=== PATIENT | male | born 1975 | race Caucasian/White ===

== ENCOUNTER 2023-01-27 11:58 | Emergency (ER) | payer MEDICARE, SELFPAY ==
--- NOTE | 2023-01-27 11:59 | ED.ABDPAIN ---
HPI - Abdominal Pain General Stated Complaint: abd pain Time Seen by Provider: 01/27/23 11:59 Source: patient Mode of arrival: ambulatory Limitations: no limitations History of Present Illness HPI narrative: Sam is a 47-year-old male patient presenting to the clinic today with complaints of abdominal pain, muscle cramping, nausea, vomiting, and diarrhea x2 days. He reports he has vomited multiple times today and has had diarrhea stool. Able to keep anything down. No fever or chills. States he gets this stomach bug approximately every 2 years and he needs fluids. Urinated once this morning and states it was very dark and malodorous. Related Data Home Medications Medication Instructions Recorded Confirmed omeprazole 40 mg capsule,delayed mg 01/27/23 release oxycodone 10 mg tablet mg 01/27/23 quetiapine 50 mg tablet mg 01/27/23 Allergies Allergy/AdvReac Type Severity Reaction Status Date / Time metaxalone Allergy Unknown Unknown Verified 01/27/23 12:07 Review of Systems Review of Systems: Pertinent positives per HPI. Patient denies any fever, chills, rash, headache, visual changes, dizziness, cough, runny nose, sore throat, shortness of breath, chest pain, palpitations,constipation, or any urinary issues. [facility] Family History Family History Mother Hypertension Family history of diabetes mellitus in first degree relative Family history of malignant neoplasm of breast in first degree relative Other Carcinoma of colon Social History Social History Alcohol intake: never Comments At the time of my signature, I reviewed and agree with the nursing past medical, surgical, social, and family history. There is no relevant family history pertinent to the patient complaint. Exam Narrative: General: Well-developed, well nourished, in no apparent distress Head: Normocephalic, atraumatic Eyes: Pupils equally round and reactive to light bilaterally, EOM intact, sclera and conjunctive clear, no discharge, lids normal Ears: TMs intact and clear, ear canals clear, no drainage, grossly hearing normal. Nose: Nares patent, no discharge, no inflammation, no sinus tenderness. Mouth: Oropharynx without lesions or masses, good dentition, mucous membranes dry Cardio: Regular rate and rhythm, s1 and s2 normal, no murmur appreciated. Resp: Clear to auscultation bilaterally anteriorly and posteriorly, no rhonchi, rales, wheezing or rubs Abdomen: Soft, pliable, bowel sounds present in all quadrants, generalized mild tender to palpation over the abdomen, no organomegly, no CVAT tenderness. Course Course Emergency Course: Portions of this record may have been created with voice recognition software. Level of Care: Express Care Visit Vital Signs Vital signs: Vital signs reviewed Transfer Transfered to: [facility] Transportation: Other (Private car) Transfer rationale: Nausea/vomiting/diarrhea/muscle cramps, dehydration Accepting physician: [facility] Transfer comments: Transfer via private car MDM - Abdominal Pain MDM Narrative Medical decision making narrative: At the time of visit patient is resting comfortably on the exam table. Patient is having nausea, vomiting, diarrhea with muscle cramping and likely dehydration. Recommend patient be transferred to the ER for evaluation for fluids/labs. Contacted Patricia at [facility] and she accepts patient for transfer. Report given for continuity of care. Patient to [facility] via private car Differential Diagnosis Differential diagnosis: Likely abdominal pain, gastroenteritis and other (Dehydration) Discharge Plan Discharge Clinical Impression: Nausea vomiting and diarrhea, Dehydration, Cramps, muscle, general Patient Disposition: Acute Care Hospital Condition: Stable Follow-up/Referrals: UNKNOWN,DOCTOR [Primary C
[2023-01-27 12:06] VITALS: BP 141/81; PULSE 94; RESP 16; TEMP 37.1; O2SAT 98
== END 2023-01-27 12:17 | disposition short-term general hospital (02) ==
PROVIDERS: Emergency Provider Nurse Practitioner Family
DX: R11.2 Nausea with vomiting, unspecified (principal); R19.7 Diarrhea, unspecified; E86.0 Dehydration; R25.2 Cramp and spasm
CPT/HCPCS: 99212; G0463

== ENCOUNTER 2023-01-27 12:37 | Emergency (ER) | payer MEDICARE, SELFPAY ==
[2023-01-27] VITALS (15 sets, daily range): BP systolic 126–158; BP diastolic 75–96; PULSE 83–93; RESP 14–18; TEMP 36.9–37.2; O2SAT 94–99
--- NOTE | 2023-01-27 12:51 | ED.NAVMDI ---
HPI - Nausea/Vomiting/Diarrhea General Chief complaint: Nausea/Vomiting/Diarrhea Stated complaint: to get fluids Time Seen by Provider: 01/27/23 12:46 History of Present Illness HPI Narrative: Pt presents with nausea, vomiting, and diarrhea for two days. Pt has vomited numerous times and had several loose stools. Pt says he is starting to have muscle cramps and thinks he is dehydrated. Pt has some crampy abdominal pain and pain under his ribs from all of the dry heaving. Pt denies fever. Related Data Home Medications Medication Instructions Recorded Confirmed omeprazole 40 mg capsule,delayed mg 01/27/23 release oxycodone 10 mg tablet mg 01/27/23 quetiapine 50 mg tablet mg 01/27/23 Allergies Allergy/AdvReac Type Severity Reaction Status Date / Time metaxalone Allergy Unknown Unknown Verified 01/27/23 13:05 Review of Systems Review of Systems: All systems reviewed & are unremarkable except as noted in HPI and below PMFSH Family History Family History Mother Hypertension Family history of diabetes mellitus in first degree relative Family history of malignant neoplasm of breast in first degree relative Other Carcinoma of colon Social History Social History Alcohol intake: never Exam Const: General: healthy appearing Nutritional Appearance: well nourished Orientation/consciousness: patient oriented x3 HENMT: Mouth: Yes dry mucous membranes Resp: Effort & Inspection: normal respiratory effort Auscultation: clear to auscultation bilaterally Cardio: Rate: regular rate Rhythm: regular rhythm GI: GI Palp: Yes Soft to palpation and Yes Tenderness to palpation present (GI) (mild general tenderness to palpation) Auscultation: Hyperactive bowel sounds present Skin: General skin exam: normal color Wounds: no wounds Neuro: General: patient oriented x3, moves all extremities, no meningeal signs, no focal motor deficits and CN's II-XI intact bilaterally Speech: normal speech Extrem: General: normal to inspection and no clubbing, cyanosis or edema Psych: Mental Status: mental status grossly normal Affect: normal affect Attitude: cooperative Course Vital Signs Vital signs: Vital Signs Temperature 98.9 F 01/27/23 12:40 Pulse Rate 93 01/27/23 12:40 Respiratory Rate 16 01/27/23 12:40 Blood Pressure 158/86 H 01/27/23 12:40 Pulse Oximetry 98 01/27/23 12:40 Temperature 98.5 F 01/27/23 12:42 Pulse Rate 83 01/27/23 14:01 Respiratory Rate 18 01/27/23 14:01 Blood Pressure 126/75 01/27/23 14:01 Pulse Oximetry 97 01/27/23 14:01 Oxygen Delivery Room Air 01/27/23 12:42 MDM - Nausea/Vomiting/Diarrhea MDM Narrative Medical decision making narrative: pt appears mildly dehydrated from persistent vomiting and could have some electrolyte abnormalities. will order labs and give IVF and IV zofran. labs look fine pt feels better will d/c on zofran and bentyl. Differential Diagnosis Differential diagnosis: Likely food poisoning, gastroenteritis and dehydration Lab Data Attestation: I reviewed the patient's lab results. 01/27/23 12:48 01/27/23 12:48 Labs: Lab Results 01/27/23 01/27/23 01/27/23 Range/Units 12:48 12:48 12:48 WBC 14.3 H (4.5-10.0) K/mm3 RBC 5.83 (4.6-6.20) M/mm3 Hgb 17.4 (14.0-18.0) g/dL Hct 53.5 H (42.0-52.0) % MCV 91.8 (80-100) fl MCH 29.8 (26-34) pg MCHC 32.5 (32-36) g/dl RDW 14.8 H (11.5-14.5) % Plt Count 182 (150-375) k/mm3 MPV 10.6 H (7.4-10.4) fl Immature Gran % (Auto) 1.0 H (0-0.5) % Neut % (Auto) 85.8 H (45.5-73.1) % Lymph % (Auto) 6.9 L (18.3-44.2) % Potter % (Auto) 5.9 (2.6-8.5) % Eos % (Auto) 0.1 (0-4.4) % Baso % (Auto) 0.3 (0.2-1.2) % Lymph # (Auto) 0.99 (0.9-3.2) K/mm3 Potter # (Auto) 0.8 H (0
[2023-01-27 12:55] LABS: Basophils Absolute Auto 0.1 K/mm3 (0.0-0.1); Basophils Percent Auto 0.3 % (0.2-1.2); Eosinophils Percent Auto 0.1 % (0-4.4); Hematocrit 53.5 % (42.0-52.0); Hemoglobin 17.4 g/dL (14.0-18.0); Immature Granulocyte Absolute 0.15 K/mm3 (0.00-0.031); Lymphocytes Absolute Auto 0.99 K/mm3 (0.9-3.2); Lymphocytes Percent Auto 6.9 % (18.3-44.2); Mean Corpuscular HGB Conc 32.5 g/dl (32-36); Mean Corpuscular Hemoglobin 29.8 pg (26-34); Mean Corpuscular Volume 91.8 fl (80-100); Mean Platelet Volume 10.6 fl (7.4-10.4); Monocytes Absolute Auto 0.8 K/mm3 (0.1-0.6); Monocytes Percent Auto 5.9 % (2.6-8.5); Neutrophils Absolute Auto 12.3 K/mm3 (1.3-6.7); Neutrophils Percent Auto 85.8 % (45.5-73.1); Platelet Count Result 182 k/mm3 (150-375); Red Blood Count 5.83 M/mm3 (4.6-6.20); Red Cell Distribution Width 14.8 % (11.5-14.5); White Blood Count 14.3 K/mm3 (4.5-10.0)
[2023-01-27] MEDS: SODIUM CHLORIDE 0.9% IV 1,000 ML 999 ML IV CONT (12:57)
[2023-01-27] MEDS: ONDANSETRON INJ 4 MG/2 ML VIAL IV PUSH (12:57)
[2023-01-27 13:05] LABS: Alanine Aminotransferase 27 U/L (6-50); Alkaline Phosphatase 148 U/L (38-126); Anion Gap 11 mmol/L (8-16); Aspartate Amino Transferase 30 U/L (17-59); Bilirubin,Total 0.7 mg/dL (0.2-1.3); Blood Urea Nitrogen 15 mg/dL (9-20); Calcium 9.2 mg/dL (8.4-10.2); Carbon Dioxide 27 mmol/L (22-30); Chloride 103 mmol/L (98-107); Estimated CRCL calculation 70 ml/min; Estimated Glomerular Filt Rate > 60; Glucose 137 mg/dL (65-110); Lipase 38 U/L (23-300); Potassium 4.4 mmol/L (3.4-5.0); Sodium 141 mmol/L (137-145)
[2023-01-27 13:11] LABS: Amorphous Sediment Urine Present; Appearance Urine Cloudy (Clear); Bacteria Urine None Seen /hpf; Bilirubin Urine 1+ (Negative); Blood Urine 2+ (Negative); Color Urine Dark Yellow (Yellow); Glucose Urine UA Negative (Negative); Hyaline Casts Urine Present /lpf; Ketones Urine Negative (Negative); Leukocyte Esterase Ur Negative LEU/UL (Negative); Nitrate Urine Negative (Negative); Non Pathogenic Casts >20; Protein Urine 3+ mg/dL (Negative); Specific Grav Ur 1.032 (1.001-1.035); Squamous Epithelial Cell Urine Few /hpf (Few); WBC Urine 0-5 /hpf
[2023-01-27 13:12] LABS: Add Urine Microscopic? YES
== END 2023-01-27 14:21 | disposition home or self-care (01) ==
PROVIDERS: Emergency Provider Emergency Medicine
DX: K52.9 Noninfective gastroenteritis and colitis, unspecified (principal)
CPT/HCPCS: 36415; 80053; 81001; 83690; 85025; 96361; 96374; 99284; J2405; J7030

== ENCOUNTER 2023-07-26 07:00 | Outpatient (NON) | payer MEDICARE, SELFPAY | END 2023-07-26 07:01 | disposition home or self-care (01) | PROVIDERS: Visit Provider Internal Medicine Gastroenterology | DX: D12.2 Benign neoplasm of ascending colon (principal); Z80.0 Family history of malignant neoplasm of digestive organs | CPT/HCPCS: 88305 ==

== ENCOUNTER 2023-07-26 11:35 | Day surgery (SDC) | payer MEDICARE, SELFPAY ==
[2023-06-22 09:40] VITALS: BMI 28.0
[2023-06-22 11:48] VITALS: BMI 27.8
--- NOTE | 2023-07-06 11:55 | PC.NURSE ---
spoke with patient over the phone about his new procedure date/time. education given on 2 day prep instructions. He states the office has also mailed him instructions. he knows to call dr office if he has any further questions over the prep.
[2023-07-26 11:59] VITALS: BP 129/87; PULSE 61; RESP 16; TEMP 37; O2SAT 98
[2023-07-26] MEDS: LACTATED RINGERS 1,000 ML 150 ML IV CONT (12:02)
--- NOTE | 2023-07-26 12:15 | PM.HPGS ---
History of Present Illness History of Present Illness Consent: Risks, benefits, and alternatives have been discussed and questions answered. Patient agrees to proceed with procedure. Chief complaint: Hemorrhage of Anus & Rectum, Family HX Colon CA Narrative: Sam Rosenthal is a 48 year old male with intermittent blood in stool, none for over a month. Had colonoscopy 5 years ago with polyp Review of Systems Constitutional: Constitutional: Denies headache(s) and Denies weakness Eyes: Eyes: Denies blurry vision ENT: Reports Normal hearing present, Denies headache(s) and Denies neck pain Cardiovascular: Cardiovascular: Denies chest pain and Denies dyspnea Respiratory: Respiratory: Denies dyspnea Gastrointestinal: Gastrointestinal: Reports no additional gastrointestinal complaints Genitourinary: Genitourinary: Denies dysuria Musculoskeletal: Musculoskeletal: Denies neck pain Integumentary/Breasts: Skin/Breast: Denies dry skin Neurologic: Reports Normal hearing present, Denies headache(s) and Denies weakness Psychiatric: Psychiatric: Denies anxiety Endocrine: Endocrine: Denies change in body appearance Hematologic/Lymphatic: Hematologic/Lymphatic: Denies easy bleeding Allergic/Immunologic: Allergic/Immunologic: Denies urticaria [facility] Past Medical History Medical History (Updated 06/21/23 @ 12:24 by Cecy Muhammad, VETERINARY LABORATORY TECHNICIAN-C) Back injury Family hx of colon cancer GERD (gastroesophageal reflux disease) History of adenomatous polyp of colon Neck pain with history of cervical spinal surgery Rectal bleeding Skin cancer Family History Family History Mother Hypertension Family history of diabetes mellitus in first degree relative Family history of malignant neoplasm of breast in first degree relative Other Carcinoma of colon Social History Social History Smoking packs per day: 0.5 Smoking cigarettes per day: 10.0 Years smoked: 35 Smoking pack-years: 17.50 Smoking status: Current every day smoker Tobacco type: cigarettes Alcohol intake: never Substance use type: does not use Living arrangements: with family Spiritual care concerns: No Meds Home Medications and Allergies Home Medications Medication Instructions Recorded Confirmed Type omeprazole 40 mg capsule,delayed 40 mg PO DAILY 01/27/23 07/26/23 History release alprazolam 0.5 mg tablet (Xanax) 0.5 mg PO BID 06/21/23 07/26/23 History dicyclomine 10 mg capsule 10 mg PO TID PRN abdominal pain 06/21/23 07/26/23 Rx #90 caps hydrocortisone 2.5 % topical cream 1 applic RECTAL DAILY PRN 06/21/23 07/26/23 Rx with perineal applicator hemorrhoids #30 grams oxycodone 15 mg tablet 15 mg PO QID 06/22/23 07/26/23 History Allergies Allergy/AdvReac Type Severity Reaction Status Date / Time metaxalone Allergy Mild Swelling Verified 07/26/23 11:53 of Lip/Tongue/Throat Vital Signs Vital Signs - 24 hr 07/26/23 11:59 Temperature 98.6 F Pulse Rate 61 Respiratory Rate 16 Blood Pressure 129/87 Pulse Oximetry 98 Oxygen Delivery Room Air Exam Const: General: comfortable and no acute distress HENMT: Face/Nose/Sinus: Normal nares present Eyes: General: appearance normal, both eyes and all related structures Neck: Neck: no JVD Resp: Auscultation: clear to auscultation bilaterally Cardio: Rate: regular rate Rhythm: regular rhythm GI: Inspection: non-distended GI Palp: Yes Soft to palpation Skin: General skin exam: normal color Neuro: General: gait normal Speech: normal speech Extrem: General: normal to inspection Psych: Mental Status: mental status grossly normal Assessment and Plan Assessment and plan (1) Rectal bleeding: Code(s): K62.5 - Hemorrhage of anus and rectum Status: Acute Assessment and Plan: colonoscopy
[2023-07-26 12:45] VITALS: BP 105/79; PULSE 65; RESP 18; O2SAT 97
[2023-07-26 12:55] VITALS: BP 108/72; PULSE 60; RESP 16; O2SAT 98
--- NOTE | 2023-07-26 13:02 | WPDANESPN ---
Anes - Prog Note Post-Op Date/Time: 07/26/23 13:02 Cardiovascular status: normal Respiratory status: normal Airway patency: baseline Mental status: baseline Post-Op hydration status: normal Vital Signs: Last Vital Signs Temp 37.0 C 07/26/23 11:59 Pulse 60 07/26/23 12:55 Resp 16 07/26/23 12:55 BP 108/72 07/26/23 12:55 Pulse Ox 98 07/26/23 12:55 O2 Del Method Room Air 07/26/23 12:55 Pain Score (VAS): 0 I/O: Intake & Output 07/25/23 07/26/23 07/26/23 23:59 07:59 15:59 Intake Total 400 Balance 400 Patient Feedback: Patient satisfied with anesthetic care.
[2023-07-26 13:05] VITALS: BP 124/86; PULSE 60; RESP 18; O2SAT 100
== END 2023-07-26 13:17 | disposition home or self-care (01) ==
PROVIDERS: Visit Provider Internal Medicine Gastroenterology
PROC: 0DJD8ZZ Inspection of Lower Intestinal Tract, Via Natural or Artificial Opening Endoscopic (ICD-10-PCS; CPT 45378; principal; 2023-07-26 13:00)
DX: Z86.010 Personal history of colon polyps (principal); D12.2 Benign neoplasm of ascending colon; K57.30 Diverticulosis of large intestine without perforation or abscess without bleeding; K64.8 Other hemorrhoids
CPT/HCPCS: 45380

== ENCOUNTER 2024-06-09 13:28 | Emergency (ER) | payer MEDICARE, SELFPAY ==
--- NOTE | ~2024-06-09 | XR_ITS ---
XR ankle RT min 3V Ordering provider: Salud Bowman NP History: . pain and swelling x 1 day . Comparison: None. FINDINGS: BONES: No acute fracture or dislocation. Lucency is seen in the epiphysis of the tibial which may be degenerative. Early calcaneal spur. Ossification of the insertion of the tendo Achilles. JOINT SPACES: Normal. SOFT TISSUES: Normal. IMPRESSION: No acute osseous abnormality of the right ankle. Reviewed, dictated and finalized at location A.
[2024-06-09 13:45] VITALS: BP 113/67; PULSE 65; RESP 20; TEMP 36.1; O2SAT 98
--- NOTE | 2024-06-09 13:45 | ED.LOWEXIN ---
HPI - Extremity Injury (Lower) General Chief Complaint: Extremity Injury, Lower Stated Complaint: pain,pressure,swollen right ankle Time Seen by Provider: 06/09/24 13:45 Source: patient Mode of arrival: ambulatory Limitations: no limitations History of Present Illness HPI Narrative: 48-year-old male presents with complaint right ankle pain and swelling since last night. Denies injury. First noticed pain while laying in bed. started pointing and flexing foot to stretch ankle . Pain increased throughout the night and couldn't sleep. i take oxycodone daily and not helping the pain . All systems reviewed and negative except as noted above. Related Data Home Medications Medication Instructions Recorded Confirmed alprazolam 0.5 mg tablet (Xanax) 0.5 mg PO BID 06/21/23 06/09/24 oxycodone 15 mg tablet 15 mg PO QID 06/22/23 06/09/24 escitalopram oxalate 20 mg tablet 20 mg PO DAILY 06/09/24 06/09/24 lithium carbonate 300 mg tablet 300 mg PO BID 06/09/24 06/09/24 lorazepam 0.5 mg tablet 0.5 mg PO BID 06/09/24 06/09/24 Allergies Allergy/AdvReac Type Severity Reaction Status Date / Time metaxalone Allergy Mild Swelling Verified 06/09/24 13:31 of Lip/Tongue/Throat Review of Systems Review of Systems: CONSTITUTIONAL: Denies fever, chills, or sweats. EYES: Denies visual changes, redness, or discharge. ENT: Denies rhinorrhea, congestion, sore throat, or otalgia. CARDIOVASCULAR: Denies chest pain, palpitations, or edema. RESPIRATORY: Denies cough or dyspnea. GASTROINTESTINAL: Denies abdominal pain, nausea, vomiting, or diarrhea. GENITOURINARY: Denies dysuria or hematuria. SKIN: Denies rash or itching. MUSCULOSKELETAL: Denies back pain . Reports pain and swelling to right ankle. NEUROLOGIC: Denies headache, numbness, or weakness. PSYCHIATRIC: Denies anxiety or depression. All other systems reviewed are negative, except as documented in HPI. [facility] Past Medical History Medical History (Updated 06/09/24 @ 14:18 by Salud Bowman NP) Back injury Family hx of colon cancer GERD (gastroesophageal reflux disease) History of adenomatous polyp of colon Neck pain with history of cervical spinal surgery Rectal bleeding Skin cancer Family History Family History Mother Hypertension Family history of diabetes mellitus in first degree relative Family history of malignant neoplasm of breast in first degree relative Other Carcinoma of colon Social History Social History Smoking packs per day: 0.5 Smoking cigarettes per day: 10.0 Years smoked: 35 Smoking pack-years: 17.50 Smoking status: Current every day smoker Tobacco type: cigarettes Alcohol intake: never Substance use type: does not use Living arrangements: with family Spiritual care concerns: No Comments At time of signature, agree with nursing past medical, surgical, social and family history. There is no relevant family history pertinent to the presenting complaint. Exam Narrative: GENERAL: This is a well-nourished, well-developed patient, in no apparent distress. HEAD: normocephalic, atraumatic. EYES: PERRL. Sclera clear/white. Vision is grossly intact. EARS: External ears normal NOSE: External nose normal NECK: Neck supple, non-tender without lymphadenopathy, masses or thyromegaly. CARDIOVASCULAR: Regular rate and rhythm without murmurs, gallops, or rubs. RESPIRATORY: Clear to auscultation. Breath sounds equal bilaterally. No wheezes, rales, or rhonchi. SKIN: warm, Dry, intact with no suspicious lesions or rash, good texture and turgor. NEURO: awake, alert, and oriented to person, place and time. There were no obvious focal neurologic abnormalities. EXTREMITIES: circumferential swelling to R ankle, erythema and warmth to lateral aspect. tender on palpation. R DP 2+, good color Course Course Le
== END 2024-06-09 14:25 | disposition home or self-care (01) ==
PROVIDERS: Emergency Provider Nurse Practitioner Family
DX: M19.071 Primary osteoarthritis, right ankle and foot (principal); L03.115 Cellulitis of right lower limb; F17.210 Nicotine dependence, cigarettes, uncomplicated; K21.9 Gastro-esophageal reflux disease without esophagitis; Z85.828 Personal history of other malignant neoplasm of skin
CPT/HCPCS: 73610; 99213; G0463

== ENCOUNTER 2024-07-11 14:15 | Emergency (ER) | payer MEDICARE, SELFPAY ==
--- NOTE | ~2024-07-11 | US_ITS ---
RIGHT LOWER EXTREMITY VENOUS ULTRASOUND Ordering provider: Gera Coyle PA-C History: . R ankle swelling, pain, atraumatic . Comparison: The ve FINDINGS: --COMMON FEMORAL: Patent and free of thrombus. Normal compressibility, phasic flow and augmentation. --PROXIMAL SUPERFICIAL FEMORAL: Patent and free of thrombus. Normal compressibility, phasic flow and augmentation. --DISTAL SUPERFICIAL FEMORAL: Patent and free of thrombus. Normal compressibility, phasic flow and au gmentation. --POPLITEAL: Patent and free of thrombus. Normal compressibility, phasic flow and augmentation. --POSTERIOR TIBIAL: Patent and free of thrombus. Normal compressibility, phasic flow and augmentation . IMPRESSION: Negative right lower extremity venous US. No deep vein thrombosis. Reviewed, dictated and finalized at location A.
--- NOTE | ~2024-07-11 | XR_ITS ---
EXAM: XR ankle RT min 3V DATE: 07/11/2024 15:32 HISTORY: R ankle pain . COMPARISON: 06/18/2024. FINDINGS: Normal mineralization. No fracture or dislocation. Stable lytic lesion in the distal tibia without aggressive features, likely large degenerative subchondral cyst. Mild degenerative change at the tibiotalar joint. Achilles enthesopathy. No erosion or periosteal change. Soft tissues within no rmal limits. IMPRESSION: Mild right tibiotalar osteoarthritis. Achilles enthesopathy. Reviewed, dictated and finalized at location K.
[2024-07-11 14:18] VITALS: BP 159/89; PULSE 76; RESP 20; TEMP 36.6; O2SAT 99
[2024-07-11 15:09] VITALS: BP 128/84; O2SAT 93
--- NOTE | 2024-07-11 15:18 | ED.EXTPRO ---
HPI - Extremity Problem General Chief complaint: Extremity Problem,Nontraumatic Stated complaint: gout right foot Time Seen by Provider: 07/11/24 15:06 Source: patient Mode of arrival: ambulatory Limitations: no limitations History of Present Illness HPI Narrative: This is a 48-year-old male who presents to the ED for chief complaint of right ankle and heel pain ongoing for the past month. Reports that his PCP has alternated between treating for possible gout and possible cellulitis. States that he continues to have swelling knee and pain throughout the ankle joint and into the heel. Pain is worse with weight-bearing. Has completed courses of cephalexin and is taking allopurinol daily. No specific injury but does note that it felt like his ankle needed to pop one evening before going to bed and then he woke up with it very swollen. Related Data Home Medications Medication Instructions Recorded Confirmed alprazolam 0.5 mg tablet (Xanax) 0.5 mg PO BID 06/21/23 06/09/24 oxycodone 15 mg tablet 15 mg PO QID 06/22/23 06/09/24 escitalopram oxalate 20 mg tablet 20 mg PO DAILY 06/09/24 06/09/24 lithium carbonate 300 mg tablet 300 mg PO BID 06/09/24 06/09/24 lorazepam 0.5 mg tablet 0.5 mg PO BID 06/09/24 06/09/24 Allergies Allergy/AdvReac Type Severity Reaction Status Date / Time metaxalone Allergy Mild Swelling Verified 07/11/24 14:16 of Lip/Tongue/Throat Review of Systems Review of Systems: All systems as dictated in HPI [facility] Past Medical History Medical History (Updated 07/11/24 @ 16:12 by Gera Coyle PA-C) Back injury Family hx of colon cancer GERD (gastroesophageal reflux disease) History of adenomatous polyp of colon Neck pain with history of cervical spinal surgery Rectal bleeding Skin cancer Family History Family History Mother Hypertension Family history of diabetes mellitus in first degree relative Family history of malignant neoplasm of breast in first degree relative Other Carcinoma of colon Social History Social History Smoking packs per day: 0.5 Smoking cigarettes per day: 10.0 Years smoked: 35 Smoking pack-years: 17.50 Smoking status: Current every day smoker Tobacco type: cigarettes Alcohol intake: never Substance use type: does not use Living arrangements: with family Spiritual care concerns: No Exam Narrative: GENERAL: Well-appearing, well-nourished, and in no acute distress. HEAD: Normocephalic, atraumatic. EYES: PERRLA and EOMI. ENT: Nares clear, no rhinorrhea or epistaxis. Mucous membranes moist. Oropharynx without tonsillar hypertrophy exudate or other lesions. NECK: Supple. No adenopathy or masses. CHEST: No respiratory distress. Clear to auscultation. No wheezes rales or rhonchi HEART: Regular rate and rhythm. No murmur heard. Normal peripheral pulses. ABDOMEN: Soft, nontender, nondistended, normal active bowel sounds. MSK: Normal range of motion. No edema. SKIN: Warm, dry, no rash. NEURO: Alert and oriented x4. No focal deficits. PSYCH: Normal mood and affect. Course Vital Signs Vital signs: Vital Signs Temperature 97.8 F 07/11/24 14:18 Pulse Rate 76 07/11/24 14:18 Respiratory Rate 20 07/11/24 14:18 Blood Pressure 159/89 H 07/11/24 14:18 Pulse Oximetry 99 07/11/24 14:18 Oxygen Delivery Room Air 07/11/24 14:18 Temperature 97.7 F 07/11/24 16:18 Pulse Rate 64 07/11/24 16:18 Respiratory Rate 16 07/11/24 16:18 Blood Pressure 127/79 07/11/24 16:18 Pulse Oximetry 97 07/11/24 16:18 Oxygen Delivery Room Air 07/11/24 14:18 MDM - Extremity (Nontraumatic) MDM Narrative Medical decision making narrative: This is a 48-year-old male who presents to the ED with chief complaint of 1 month of increasing right ankle pain. Vitals are normal. Exam shows mild swelling a
[2024-07-11 15:31] VITALS: BP 124/87; PULSE 72; RESP 19; O2SAT 92
[2024-07-11] MEDS: KETOROLAC 30 MG/ML VIAL (*BKC) IM (15:43)
[2024-07-11 15:49] VITALS: O2SAT 96
[2024-07-11 16:18] VITALS: BP 127/79; PULSE 64; RESP 16; TEMP 36.5; O2SAT 97
== END 2024-07-11 16:19 | disposition home or self-care (01) ==
PROVIDERS: Emergency Provider Physician Assistant
DX: M19.071 Primary osteoarthritis, right ankle and foot (principal); K21.9 Gastro-esophageal reflux disease without esophagitis; F17.210 Nicotine dependence, cigarettes, uncomplicated; Z86.010 Personal history of colon polyps; Z85.828 Personal history of other malignant neoplasm of skin; Z79.899 Other long term (current) drug therapy
CPT/HCPCS: 73610; 93971; 96372; 99284; J1885

== ENCOUNTER 2024-11-22 18:43 | Observation (INO) | payer MEDICARE, SELFPAY ==
--- NOTE | ~2024-11-22 | CT_ITS ---
EXAMINATION: CT chest abdomen pelvis w con DATE: 11/22/2024 19:26 INDICATION: perirectal abscess no oral contrast IV only . TECHNIQUE: Computed tomography (CT) of the chest, abdomen, and pelvis was performed with 100 mL Omnip aque-350 intravenous contrast. Automated exposure control and iterative reconstruction technique were employed. The dose-length product was 732.35 mGy-cm. COMPARISON: 11/08/2024 FINDINGS: CHEST: Thoracic aorta: No significant dilation. No dissection. Lung parenchyma and airways: Emphysematous change. Patent airways. Thoracic inlet, axillae and chest wall: No thyroid or soft tissue mass. No axillary lymphadenopathy. Mediastinum: No mass or lymphadenopathy. Heart and pericardium: Normal heart size. No pericardial effusion. Coronary artery calcifications: Mild. Pleura: No effusion or mass. Thoracic bones: No acute osseous finding in the chest. Partially visualized, uncomplicated appearing posterior cervicothoracic fusion hardware. ABDOMEN/PELVIS: Liver: Normal. Biliary/Gallbladder: Gallbladder is normal. No bile duct dilation. Pancreas: No mass or duct dilation. Spleen: Normal. Adrenals:No mass. Kidneys: No suspicious mass, obstructing stone, or hydronephrosis. GI tract: Mild distal esophageal and gastric wall edema. No small or large bowel dilation. Normal ariadne endix. Mesentery/Peritoneum: No ascites, mass, or free air. Retroperitoneum: No mass Atherosclerotic calcifications of intra-abdominal arterial vessels. Pelvis: Pelvic organs are within normal limits Soft Tissues: Significant interval decrease in size of the perianal abscess, with only a small amount of residual gas remaining. Persistent surrounding inflammatory change. Abdominopelvic bones: No acute osseous finding in the abdomen/pelvis. IMPRESSION: Emphysematous changes. Mild esophagitis/gastritis. Improving perianal abscess. Reviewed, dictated and finalized at location [facility]. [employer]
--- OUTSIDE RECORDS SUMMARY | 2024-11-22 17:59 | XMS_ITS | Continuity of Care Document ---
Author Organization [facility] Address [address] [place] [address] [address] [place] [address] Phone Care Team Providers Care Tier Truck Driver Name Role Phone Tobi Alonso Unavailable Unavailable Advance Directives Directive Yes / No Effective Date File Name No Information Encounters Encounter Description Practice Location Reason(s) For Visit Diagnoses Date Provider Providers Copied on Encounter [facility], [id number] [place] [address] [address], [place], [place], [id number], [place] tel:[phone] [facility] No Information [address] , [address], [place], [address], [place]. tel:[phone] Family History Family Member Type Diagnosis Age At Onset No Information Payers Payer name Insurance type Covered democrat ID Authoriza tisean(s) [employer] SOI CI [id number] Social History Type Description Quantity Date Captured Comments Sex Male Smoking Status No Information Chief Complaint And Reason For Visit No Information Reason For Referral Reason For Referral No Information History Of Present Illness Encounter Date Complaint History Of Prese nt Illness No Information Functional Status Date Functional Assessmen t No Information Instructions Date Instruction Additional Infor mation No Information Assessments Type Assessment Date No Information Patient Care Teams Name Effective Dates (start - stop) Status Members No Information
--- OUTSIDE RECORDS SUMMARY | 2024-11-22 18:00 | XMS_ITS | Clinical Summary ---
Author Organization [facility] Address [address] [place] [address] Phone Care Team Providers Care Heating Systems Installer Name Role Phone David Flood Primary Care Provider [phone] Allergies No known active allergies Medications risperiDONE (RISPERDAL) 0.5 MG Tablet Take 1 mg by mouth nightly. Active HYDROcodone-mariajose taminophen (NORCO) 10-325 MG Tablet Take 1 Tab by mouth every 6 hours as needed for Pain. Active venlafaxine (EFFEXOR XR) 150 MG CAPSULE SR 24 HR Take 150 mg by mouth Every other day. Active fenofibrate (TRICOR) 145 MG Tablet Take 145 mg by mouth daily. Active omeprazole (PRILOSEC) 40 MG CAPSULE DELAYED RELEASE Take 40 mg by mouth daily. Active famotidine (PEPCID) 40 MG Tablet Take 40 mg by mouth daily. Active diazePAM (VALIUM) 5 MG Tablet Take 1 Tab by mouth daily as needed for Anxiety or Muscle spasms. 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 Hypersomnia 11/19/2015 H/O lumbar discectomy 11/01/2015 Disc disease, degenerative, lumbar or lumbosacra l 11/01/2015 Muscle spasm of back 11/01/2015 Tobacco dependence 09/30/2015 Hoarseness of voice 09/24/2015 Gastroesophageal reflux disease without esophagi tis 09/24/2015 Vocal cord nodule 09/24/2015 Family History Medical History Relation Name Comments No Known Problems Father hasn't see n in 20 years Cancer Mother Diabetes Mother Hypertension Mother Relation Name Status Comments Father Alive Mother Social History Tobacco Use Types Packs/Day Years Used Date Smoking Tobacco: Every Day Cigarettes 0.5 20 Tobacco Cessation:Ready to Q uit: Yes; Counseling Given: Yes Alcohol Use Standard Drinks/Week Comments No 0 (1 standard drink = 0.6 oz pur e alcohol) Sexually Active Control Partners Comments Yes Sex and Gender Information Value Date Recorded Sex Assigned at Not on file Legal Sex Male 8:56 PM CDT Gender Identity Not on file Sexual Orientation Not on file Last Filed Vital Signs Vital Sign Reading Time Taken Comments Blood Pressure 135/76 09/23/2016 9:36 AM TRAVEL TRA[employer]ER [employer]ER Pulse 83 09/23/2016 9:36 AM TRAVEL TRA[employer] Temperature 36.2 ??C (97.2 ??F) 09/23/2016 9:36 AM CS T Respiratory Rate 16 09/23/2016 9:36 AM TRAVEL TRA[employer]ER [employer]ER Oxygen Saturation 98% 09/23/2016 9:36 AM TRAVEL TRAILER [employer]SEM[employer]ER Inhaled Oxygen Concentration - - Weight 78.9 kg (174 lb) 02/20/2016 1:19 PM CDT Height 170.2 cm (5' 7 ) 02/20/2016 1:19 PM CDT Body Mass Index 27.25 02/20/2016 1:19 PM CDT Plan of Treatment Health Maintenance Due Date Last Done Comments Hepatitis C Virus (HCV) Screening 1974 TdaP Immunization 1974 Hepatitis B Immunization (1 of 3 - 19+ 3-dose series) 1993 Colonoscopy 2019 Colorectal Cancer Screening 2019 Influenza Immunization (#1) 2024 SARS-COV-2 Immunization ( - season) 2024 Cologuard 2024 Immunochemical Fecal Occult Blood 2024 Pneumococcal Immunization (5 0+ years) (1 of 1 - PCV) 2024 Zoster Immunization (1 of 2) 2024 Respiratory Syncytial Virus (RSV) Immunization (Adult) (1 - 1-dose 75+ series) 2049 Meningococcal Immunization (ACWY) Aged Out No longer eligible based on patient's age to complete this topic Pneumococcal Immunization Combined Aged Out No longer eligible based on patient's age to complete this topic Rotavirus Immunization Aged Out No lo nger eligible based on patient's age to complete this topic Insurance MEDICAID [employer] [place] [place] [id number] Care Teams Heating Systems Installer Relationship Specialty Start Date End Date David Flood [address] [place] [address] PCP - General Family Medicine 06/18/16
--- OUTSIDE RECORDS SUMMARY | 2024-11-22 18:00 | XMS_ITS | Clinical Summary ---
Author Organization [facility] Address [id number] [place] [phone] Care Team Providers Care Legal Nurse Consultant Name Role Phone Nehemiah Ulloa MD Primary Care Provider [phone] Allergies Active Allergy Reactions Criticality Noted Date Comments Gabapentin Other (See comments) Low 01/01/2016 severe tremors Sertraline Other (See comments) Low 01/01/2016 agitation and mood changes Medications omeprazole (PriLOSEC) 40 mg capsuleIndicat ions:Treatment of Non-Bleeding Gastric Disorder Take 1 capsule (40 mg total) by mouth every morning 2 Active Flovent HFA 220 mcg/actuation inhaler Inhale 2 puffs 2 (two) times a day 2 Active buPROPion XL (WELLBUTRIN XL) 150 mg 24 hr tabletIndicati ons:Anxiety with Depression Take 150 mg by mouth 2 (two) times a day 2 Active albuterol HFA (PROVENTIL HFA,VENTOLIN HFA,PROAIR HFA) 90 mcg/actuation inhalerIndicat ions:Acute Asthma Attack Inhale 2 puffs every 6 (six) hours as needed 2 Active allopurinoL (ZYLOPRIM) 100 mg tablet Take 1 tablet (100 mg total) by mouth daily 4 Active escitalopram (LEXAPRO) 20 mg tablet Take 1 tablet (20 mg total) by mouth daily 4 Active oxyCODONE (ROXICODONE) 15 mg immediate release tablet 4 Active naproxen (NAPROSYN) 500 mg tablet Take 1 tablet (500 mg total) by mouth 2 (two) times a day with meals 30 tablet 5 Active traZODone (DESYREL) 100 mg tablet Take 1 tablet (100 mg total) by mouth nightly 4 Active ondansetron (ZOFRAN) 4 mg tablet Take 1 tablet (4 mg total) by mouth every 8 (eight) hours as needed 4 Active lidocaine (LIDODERM) 5 % 5 Active cholecalcifero l 25 mcg (1,000 unit) tablet Take 1 tablet (1,000 Units total) by mouth daily Active acetaminophen 500 mg capsule Take 2 capsules (1,000 mg total) by mouth every 6 (six) hours 120 tablet 2 11/16/19 Discontinu ed(Therapy completed) senna-docusate (PERICOLACE) 8.6-50 mgIndications: constipation Take 2 tablets by mouth 2 (two) times a day 80 tablet 2 11/16/19 Discontinu ed(Therapy completed) gabapentin (NEURONTIN) 300 mg capsuleIndicat ions:Pain Take 1 capsule (300 mg total) by mouth 3 (three) times a day DISCUSS WITH JUAN GALLEGOS BEFORE STOPPING MEDICATION FOR WEANING INSTRUCTIONS. STOP MEDICATION IF YOU DEVELOP TREMORS. 90 capsule 2 11/16/19 Discontinu ed(Therapy completed) oxyCODONE (ROXICODONE) 10 mg tablet Take 10 mg by mouth 4 (four) times a day 3 11/16/19 Discontinu ed(Therapy completed) QUEtiapine (SEROquel) 100 mg tablet daily 3 11/16/19 Discontinu ed(Therapy completed) hydrOXYzine (ATARAX) 10 mg tablet Take 10 mg by mouth daily as needed 3 11/16/19 Discontinu ed(Therapy completed) ALPRAZolam (XANAX) 0.5 mg tablet TAKE 1 TABLET BY MOUTH TWICE DAILY IN THE MORNING AND IN THE EVENING 11/16/19 Discontinu ed(Therapy completed) lithium 150 mg capsule Take 1 capsule (150 mg total) by mouth daily 4 11/16/19 Discontinu ed(Therapy completed) Active Problems Problem Noted Date Diagnosed Date Acute pain of right shoulder 08/28/2024 Mood disorder 12/09/2022 S/P cervical spinal fusion 08/24/2022 Asthma 08/18/2022 Cervical spondylosis with myelopathy 07/10/2022 Overview (07/10/2022): Added automatically from request for surgery [id number] Instability of left shoulder joint 02/09/2022 Overview (02/09/2022): Added automatically from request for surgery [id number] Nontraumatic complete tear of left rotator cuff 02/09/2022 Overview (02/09/2022): Added automatically from request for surgery [id number] Cervical facet syndrome 06/19/2016 Cervical vertebral fusion 06/19/2016 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 JUAN (obstructive sleep apnea) 01/08/2016 PLMD (periodic limb movement disorder) 6 Hypersomnia 11/19/2015 Disc disease, degenerative, lumbar or lumbosacra l 11/01/2015 Muscle spasm of back 11/01/2015 Tobacco dependence 09/30/2015 Gastroesophageal reflux disease without esophagi tis 09/24/2015 Hoarseness of voice 09/24/2015 Vocal cord nodule 09/24/2015 Encounters Date Type Department Care Team Description 11/16/2024 9:00 AM OUTSOLE SKIVER Office Visit [facility] Medical [facility]ics and Sports Medicine [address] [place] [phone] Cristobal Lowe MD Acute pain of right shoulder (Primary Dx); Smoker; Nontraumatic complete tear of right rotator cuff 11/05/2024 9:38 PM OUTSOLE SKIVER - 11/05/2024 10:28 PM OUTSOLE SKIVER Emergency [facility] Emergency Department [address] [place] [address] Zeus Brink MD Acute pain of right shoulder (Primary Dx); Acute left ankle pain; Anal pain Discharge Disposition: Discharge to home or self care 10/31/2024 Telephone [facility] Orthopedics and Sports Medicine [address] [place] [phone] Cristobal Lowe MD sooner appointment 09/27/2024 2:05 PM OUTSOLE SKIVER - 09/27/2024 11:59 PM OUTSOLE SKIVER Hospital Encounter [facility] ([facility]) [address] [place] [phone] Acute pain of right shoulder Discharge Disposition: Discharge to home or self care 09/05/2024 1:07 PM OUTSOLE SKIVER - 09/05/2024 4:24 PM OUTSOLE SKIVER Emergency [facility] Emergency Department [address] [place] [address] Osvaldo Voss MD Suicidal ideation (Primary Dx) Discharge Disposition: Discharge to home or self care 09/05/2024 12:37 PM OUTSOLE SKIVER - 09/05/2024 11:59 PM OUTSOLE SKIVER Hospital Encounter [facility] AMBULANCE BILLING Emergency, Room R Discharge Disposition: Discharge to home or self care 08/28/2024 9:15 AM OUTSOLE SKIVER Office Visit [facility] Orthopedics and Sports Medicine [address] [place] [address] [place] [phone] Talia Lubin PA Acute pain of right shoulder (Primary Dx) 08/28/2024 9:05 AM OUTSOLE SKIVER - 08/28/2024 11:59 PM OUTSOLE SKIVER Hospital Encounter [facility] Di[facility] [address] [place] [phone] Acute pain of right shoulder Discharge Disposition: Discharge to home or self care from Last 3 Months Surgical History Surgery Date Site/Laterality Comments FLUORO GUIDED INJECTION SHOULDER LEFT 07/06/2016 Lef t SPINAL FUSION 10/25/2011 - 10/24/2012 SHOULDER SURGERY COLONOSCOPY UPPER GASTROINTESTINAL ENDOSCOPY POSTERIOR SPINAL FUSION 08/24/2022 N/A C2-T2 FL UPPER GI AIR CONTRAST W KUB 12/10/2015 Left FL UPPER GI AIR CONTRAST W KUB 11/15/2015 Left Medical History Medical History Date Comments ADHD (attention deficit hyperactivity disorder) Anxiety Arthritis Asthma Depression Gastric reflux Peripheral neuropathy Sleep apnea Family History Medical History Relation Name Comments Arthritis Mother Cancer Mother Diabetes Mother Hypertension Mother Kidney disease Mother Anesthesia problems Neg Hx Relation Name Status Comments Mother Social History Tobacco Use Types Packs/Day Years Used Date Smoking Tobacco: Every Day Cigarettes Tobacco Cessation:Ready to Q uit: Not Asked; Counseling Given: Not Answered AUDIT-C Answer Date Recorded Q1: How often do you have a drink containing alc ohol? 2-4 times a month 07/20/2022 Q2: How many drinks containi ng alcohol do you have on a typical day when you are drinking? 1 or 2 07/20/2022 Frequency of Binge Drinking Not on file 06/26 Personal Safety Answer Date Recorded Have you ever been in or are you currently in a harmful physical or emotional relationship or is someone making you feel afraid or unsafe? Denies 11/05/2024 Sex and Gender Information Value Date Recorded Sex Assigned at Not on file Legal Sex Male 10:12 AM OUTSOLE SKIVER Gender Identity Not on file Sexual Orientation Not on file Obstetrics History Last Filed Vital Signs Vital Sign Reading Time Taken Comments Blood Pressure 141/77 11/05/2024 9:37 PM OUTSOLE SKIVER Pulse 84 11/05/2024 9:37 PM OUTSOLE SKIVER Temperature 36.9 ??C (98.5 ??F) 11/05/2024 9:37 PM CS T Respiratory Rate 20 11/05/2024 9:37 PM OUTSOLE SKIVER Oxygen Saturation 100% 11/05/2024 9:37 PM OUTSOLE SKIVER Inhaled Oxygen Concentration - - Weight 76.2 kg (168 lb) 11/16/2024 9:10 AM OUTSOLE SKIVER Height 167.6 cm (5' 6 ) 11/16/2024 9:10 AM OUTSOLE SKIVER Body Mass Index 27.12 11/16/2024 9:10 AM OUTSOLE SKIVER Plan of Treatment Health Maintenance Due Date Last Done Comments Colon Cancer Screening-Colonoscopy 1974 Depression Screening 1974 Hepatitis C Screening 1974 Prostate Cancer Screening-PSA 1974 Pneumococcal vaccine <65 (1 of 2 - PCV) 1980 DTaP/Tdap/Td Vaccine (1 - Tdap) 1985 Hepatitis B Screening 1992 Regular Well Visit/Exam 18-64 1992 Influenza Vaccine (#1) 2024 Zoster Vaccine (1 of 2) 2024 Medical Devices Implanted Type Area Flask Maker Device Identifier Shelf Expiration Date Model / Serial / Lot Cervical Spine Fusion Instrumentation Spine Cervical Lt Shoulder Bicept And Cuff Reattachment Anchors Left: Shoulder DepGVISP 1 Spine Symphony 4mm Spine Occipitocervicothoracic Short Lateral Offset [id number] - [id number] Implanted:Qty: 1 on 08/24/2022 by Monico Ramon MD at [facility] N/A: Spine Cervical Depuy Synthes Spine [id number] / / Depuy Synthes Spine 3.5mm 14mm Ply Spine Screw Bone Nonsterile 4mm Kenny [id number] - [id number] Implanted:Qty: 7 on 08/24/2022 by Monico Ramon MD at [facility] N/A: Spine Cervical Depuy Synthes Spine [id number] / / Depuy Synthes Spine 4mm 240mm Straight Kenny Spinal Titanium [id number] - [id number] Implanted:Qty: 2 on 08/24/2022 by Monico Ramon MD at [facility] N/A: Spine Cervical Depuy Synthes Spine [id number] / / Depuy Synthes Spine 4.5mm 26mm Ply Spine Pedicle Screw Bone Nonsterile 4mm Kenny [id number] - [id number] Implanted:Qty: 3 on 08/24/2022 by Monico Ramon MD at [facility] N/A: Spine Cervical Depuy Synthes Spine [id number] / / Depuy Synthes Spine [id number] Set Screw - [id number] Implanted:Qty: 14 on 08/24/2022 by Monico Ramon MD at [facility] N/A: Spine Cervical Depuy Synthes Spine [id number] / / Depuy Synthes Spine 5.5mm 30mm Ply Spine Pedicle Screw Bone Nonsterile 4mm Kenny [id number] - [id number] Implanted:Qty: 4 on 08/24/2022 by Monico Ramon MD at [facility] N/A: Spine Cervical Depuy Synthes Spine [id number] / / Medtronic [employer] Bmp Infuse Sm [id number] - [id number] Implanted:Qty: 1 on 08/24/2022 by Monico Ramon MD at [facility] N/A: Spine Cervical Medtronic Inc 10/25/2024 [id number] / / [id number] Allosource 1-4mm Freeze Dried Crushed Graft 30ml Bone Cancellous [id number] - [id number] Implanted:Qty: 1 on 08/24/2022 by Monico Ramon MD at [facility] N/A: Spine Cervical Allosource 08/03/2026 [id number] / / [id number] Procedures Procedure Name Priority Date/Time Associated Diagnosis Comments MRI SHOULDER RIGHT WO CONTRAST Schedule Routine, Read Routine (OP Routine) 09/27/2024 2:50 PM OUTSOLE SKIVER Acute pain of right shoulder EGFR STAT 09/05/2024 1:28 PM OUTSOLE SKIVER DIFFERENTIAL AUTO STAT 09/05/2024 1:2 8 PM OUTSOLE SKIVER ETHANOL STAT 09/05/2024 1:28 PM OUTSOLE SKIVER THYROID FUNCTION CASCADE STAT 09/05/2024 1:28 PM OUTSOLE SKIVER COMPREHENSIVE METABOLIC PANEL STAT 09/05/2024 1:28 PM OUTSOLE SKIVER CBC WITH AUTO DIFFERENTIAL STAT 09/05/2024 1:28 PM OUTSOLE SKIVER COVID-19 CORONAVIRUS RNA Routine 09/05/2024 1:28 PM OUTSOLE SKIVER DRUGS OF ABUSE SCREEN, URINE WITHOUT CONFIRMATION STAT 09/05/2024 1:22 PM OUTSOLE SKIVER URINALYSIS AND REFLEX TO MICROSCOPIC AND CULTURE STAT 09/05/2024 1:22 PM OUTSOLE SKIVER XR SHOULDER RIGHT 2 OR MORE VIEWS Schedule Routine, Read Routine (OP Routine) 08/28/2024 9:30 AM OUTSOLE SKIVER Acute pain of right shoulder from Last 3 Months Results * MRI Shoulder Right WO Contrast (09/27/2024 2:50 PM OUTSOLE SKIVER) Anatomical Region Laterality Modality Upper Extremities Right Magnetic Reson ance 09/27/2024 3:58 PM OUTSOLE SKIVER Impressions 09/27/2024 4:06 PM OUTSOLE SKIVER 1. Right rotator cuff tendinopathy with massive, full-thickness tear of the supraspinatus, infraspinatus, and superior subscapularis tendons as well as severe myotendinous retraction and mild to moderate muscle atrophy. 2. Tear of the proximal long head right biceps tendon. Dictated by: Hussein Dickey M.D. The radiology attending physician has personally reviewed this study, and had reviewed and/or edited this written report and agrees with it. Electronically signed by: Avni Rivers M.D. Narrative 09/27/2024 4:06 PM OUTSOLE SKIVER EXAMINATION: 1. MRI right shoulder without contrast HISTORY: ??Chronic right shoulder pain, reported history of rotator cuff following an injury in 2021. FINDINGS: Comparison right shoulder radiograph 08/28/2024 and right shoulder ultrasound 06/17/2022. MR examination of the right shoulder was performed with a local coil. Transverse, oblique coronal, and oblique sagittal short TR/TE and fast spin-echo images are obtained. There is a type 1 acromion. The coracoacromial ligament is normal. There is no subacromial spur. Mild acromioclavicular joint osteoarthritis. There is moderate subacromial subdeltoid bursitis. There is moderate fatty infiltration and decreased muscle bulk of the subscapularis, supraspinatus, and infraspinatus, with sparing of the teres minor. The supraspinatus and infraspinatus tendons are completely torn. There is a full-thickness tear of the cranial portion of the subscapularis extending 1.5 cm at the footprint with associated myotendinous retraction to the level of the glenoid neck. The intra-articular biceps tendon is also ruptured. On this nonarthrographic evaluation, there is a degenerative tear of the superior labrum. There is no glenohumeral chondrosis. There is a small joint effusion tracking to the bursa. No loose bodies are identified. The bone marrow signal is normal. Irregularity of the humeral head likely represents enthesopathy. Procedure Note Avni Rivers MD - 09/27/2024 EXAMINATION: 1. MRI right shoulder without contrast HISTORY: Chronic right shoulder pain, reported history of rotator cuff following an injury in 2021. FINDINGS: Comparison right shoulder radiograph 08/28/2024 and right shoulder ultrasound 06/17/2022. MR examination of the right shoulder was performed with a local coil. Transverse, oblique coronal, and oblique sagittal short TR/TE and fast spin-echo images are obtained. There is a type 1 acromion. The coracoacromial ligament is normal. There is no subacromial spur. Mild acromioclavicular joint osteoarthritis. There is moderate subacromial subdeltoid bursitis. There is moderate fatty infiltration and decreased muscle bulk of the subscapularis, supraspinatus, and infraspinatus, with sparing of the teres minor. The supraspinatus and infraspinatus tendons are completely torn. There is a full-thickness tear of the cranial portion of the subscapularis extending 1.5 cm at the footprint with associated myotendinous retraction to the level of the glenoid neck. The intra-articular biceps tendon is also ruptured. On this nonarthrographic evaluation, there is a degenerative tear of the superior labrum. There is no glenohumeral chondrosis. There is a small joint effusion tracking to the bursa. No loose bodies are identified. The bone marrow signal is normal. Irregularity of the humeral head likely represents enthesopathy. IMPRESSION: 1. Right rotator cuff tendinopathy with massive, full-thickness tear of the supraspinatus, infraspinatus, and superior subscapularis tendons as well as severe myotendinous retraction and mild to moderate muscle atrophy. 2. Tear of the proximal long head right biceps tendon. Dictated by: Hussein Dickey M.D. The radiology attending physician has personally reviewed this study, and had reviewed and/or edited this written report and agrees with it. Electronically signed by: Avni Rivers M.D. [place] [facility] [place]ED[place] Final Result * COVID-19 Coronavirus RNA Nasopharyngeal (09/05/2024 1:28 PM OUTSOLE SKIVER) COVID-19 RNA Negative Negative Nasopharyngeal 09/05/2024 1: 28 PM OUTSOLE SKIVER 09/05/2024 1:34 PM OUTSOLE SKIVER Narrative [facility] ([place]) - 09/05/2024 2:06 PM OUTSOLE SKIVER Is the patient experiencing any symptoms consistent with COVID (eg. Fever, cough, shortness of breath)?->No What is the reason for testing?->Screening prior to [facility] health admission ??Interpretive data: Testing performed by [facility]. ??This test is performed using the [employer] Xpert Xpress CoV-2 plus assay. This is a real-time RT-PCR test intended for the qualitative detection of nucleic acid from the SARS-CoV-2. This assay has been cleared by the [place] Food and Drug administration. The performance characteristics have been verified by [facility]. ??Results must be considered in the clinical context, and a negative result does not rule out infection. Interpretive data last revised 2024. us Osvaldo Voss MD LAB MICROBIOLOGY - GENERAL O RDERABLES Final Result [facility] ([place]) 1 [facility] Department [place] [address] * eGFR (09/05/2024 1:28 PM OUTSOLE SKIVER) eGFR >90 >=60 mL/min/1. 73 m2 Comment: Interpretive Data Reference Interval Normal ?>/= 90 mL/min/1.73m2 Mildly decreased* ? 60 - 89 mL/min/1.73m2 Mildly to moderately decreased ?45 - 59 mL/min/1.73m2 Moderately to severely decreased ??30 - 44 mL/min/1.73m2 Severely decreased ?15 - 29 mL/min/1.73m2 Kidney Failure ?< 15 ??mL/min/1.73m2 *Relative to young adult level Estimated glomerular filtration rate is determined by the 2020 CKD-EPI equation recommended by the National Kidney Foundation (A Unifying Approach to GFR Estimation: Recommendations of the NKF-ASK Task Force on Reassessing the Inclusion of Race in Diagnosing Kidney Disease, JASN 2020). The CKD-EPI equation should not be used for patients with unstable renal function and has not been validated in children and those over 70. Current interpretive data was last reviewed 2021. Blood 09/05/2024 1:28 PM OUTSOLE SKIVER 09/05/2024 1:33 PM OUTSOLE SKIVER us Osvaldo Voss MD LAB BLOOD ORDERABLES Final R esult [facility] ([place]) 1 [facility] Department [place] [address] * Differential, auto (09/05/2024 1:28 PM OUTSOLE SKIVER) Neutrophil abs 6.4 1.5 - 6.5 K/cumm Imm gran abs 0.0 0.0 - 0.1 K/cumm [facility] ([place]) Lymphocyte abs 2.5 0.8 - 3.3 K/cumm [facility] ([place]) Monocyte abs 0.8 0.2 - 0.8 K/cumm [facility] ([place]) Eosinophil abs 0.1 0.0 - 0.5 K/cumm [facility] ([place]) Basophil abs 0.0 0.0 - 0.1 K/cumm [facility] ([place]) Neutrophil pct 65.0 % [facility] ([place]) Comment: Interpretive Data Percent cell count reference ranges are not reported, since discordance with absolute values may lead to misinterpretation of CBC data. Current Interpretive Data was last revised on 2018. Imm gran pct 0.4 % [facility] ([place]) Comment: Interpretive Data Percent cell count reference ranges are not reported, since discordance with absolute values may lead to misinterpretation of CBC data. Current Interpretive Data was last revised on 2018. Lymphocyte pct 24.9 % [facility] ([place]) Comment: Interpretive Data Percent cell count reference ranges are not reported, since discordance with absolute values may lead to misinterpretation of CBC data. Current Interpretive Data was last revised on 2018. Monocyte pct 8.4 % [facility] ([place]) Comment: Interpretive Data Percent cell count reference ranges are not reported, since discordance with absolute values may lead to misinterpretation of CBC data. Current Interpretive Data was last revised on 2018. Eosinophil pct 0.9 % [facility] ([place]) Comment: Interpretive Data Percent cell count reference ranges are not reported, since discordance with absolute values may lead to misinterpretation of CBC data. Current Interpretive Data was last revised on 2018. Basophil pct 0.4 % [facility] ([place]) Comment: Interpretive Data Percent cell count reference ranges are not reported, since discordance with absolute values may lead to misinterpretation of CBC data. Current Interpretive Data was last revised on 2018. Blood 09/05/2024 1:28 PM OUTSOLE SKIVER 09/05/2024 1:33 PM OUTSOLE SKIVER Osvaldo Voss MD LAB BLOOD ORDERABLES Final R esult Performing Organization Address [facility] Co de Phone Number [facility] ([place]) 1 [facility] [place] [address] * Thyroid Function [place] (09/05/2024 1:28 PM OUTSOLE SKIVER) Pathologist [facility] TSH 1.09 0.30 - 4.20 mcIUnit/mL Blood 09/05/2024 1:28 PM OUTSOLE SKIVER 09/05/2024 1:33 PM OUTSOLE SKIVER Osvaldo Voss MD LAB BLOOD ORDERABLES Final R esult Performing Organization Address [facility]/ZIP Co de Phone Number [facility] 1 [facility] [place] [address] * CBC with auto differential (09/05/2024 1:28 PM OUTSOLE SKIVER) WBC 9.9 3.8 - 9.9 K/cumm Hgb 15.3 13.0 - 17.5 g/dL [facility] ([place]) Hct 45.9 38.9 - 50.3 % [facility] ([place]) Plt 210 150 - 400 K/cumm [facility] ([place]) MPV 11.0 9.1 - 12.3 fL [facility] ([place]) RBC 5.24 4.30 - 5.80 M/cumm [facility] ([place]) MCV 87.6 81.3 - 96.4 fL [facility] ([place]) MCH 29.2 27.1 - 33.3 pg [facility] ([place]) MCHC 33.3 32.3 - 35.7 g/dL [facility] ([place]) RDW CV 13.4 11.1 - 14.9 % [facility] ([place]) RDW SD 43.4 35.7 - 48.1 fL [facility] ([place]) NRBC abs 0.00 0.00 - 0.01 K/cumm [facility] ([place]) Blood (Blood, Venous) 09/05/2024 1:28 PM OUTSOLE SKIVER 09/05/2024 1:33 PM OUTSOLE SKIVER Osvaldo Voss MD LAB BLOOD ORDERABLES Final R esult Performing Organization Address [facility]/ZIP Co de Phone Number [facility] ([place]) 1 [facility] [place] [address] * Ethanol (09/05/2024 1:28 PM OUTSOLE SKIVER) Pathologist [facility] Ethanol <10 <=10 mg/dL Comment: Interpretive Data Legal limit of intoxication > or = 80 mg/dL Levels > or = 400 mg/dL are potentially TOXIC. Current interpretive data was last revised on 2018. Blood 09/05/2024 1:28 PM OUTSOLE SKIVER 09/05/2024 1:33 PM OUTSOLE SKIVER Osvaldo Voss MD LAB BLOOD ORDERABLES Final R esult [facility] ([place]) 1 [facility] [employer] [place] [address] * (ABNORMAL) Comprehensive metabolic panel (09/05/2024 1:28 PM OUTSOLE SKIVER) Sodium 137 135 - 145 mmol/L Potassium, pl 3.4 3.3 - 4.9 mmol/L [facility] ([place]) Chloride 101 97 - 110 mmol/L [facility] ([place]) CO2 25 22 - 32 mmol/L [facility] ([place]) Anion gap 12 2 - 15 mmol/L [facility] ([place]) BUN 5(L) 6 - 25 mg/dL [facility] ([place]) Creatinine 0.70(L) 0.80 - 1.30 mg/dL [facility] ([place]) Glucose 82 70 - 199 mg/dL [facility] ([place]) Comment: Interpretive Data Fasting glucose >/= 126 mg/dl is diagnostic for diabetes. ?? Fasting is defined as no caloric intake for at least 8 hours. Fasting glucose between 100 mg/dl to 125 mg/dl is diagnostic of prediabetes. In a patient with classic symptoms of hyperglycemia or hyperglycemic crisis, a random glucose >/= 200 mg/dl is diagnostic for diabetes. In the absence of unequivocal hyperglycemia, results should be confirmed by repeat testing. The classification and Diagnosis of Diabetes Diabetes Care 2021; 46: S19-S40. Current interpretive data was last revised 2022. Calcium 9.2 8.5 - 10.3 mg/dL [facility] ([place]) Bilirubin, total 0.4 0.1 - 1.2 mg/dL [facility] ([place]) Protein, pl 7.2 6.5 - 8.5 g/dL [facility] ([place]) Albumin 4.2 3.5 - 5.0 g/dL [facility] ([place]) Alk phos 146(H) 40 - 130 Units/L [facility] ([place]) ALT 14 7 - 55 Units/L [facility] ([place]) AST 17 10 - 50 Units/L [facility] ([place]) Blood 09/05/2024 1:28 PM OUTSOLE SKIVER 09/05/2024 1:33 PM OUTSOLE SKIVER us Osvaldo Voss MD LAB BLOOD ORDERABLES Final R esult [facility] ([place] 1 [facility] Department [place] [address] * (ABNORMAL) Urinalysis reflex to microscopic and culture Urine (09/05/2024 1:22 PM OUTSOLE [facility]IVER) Color, ur Yellow Yellow Clarity, ur Clear Clear [facility] ([place]) Specific gravity, ur 1.018 1.003 - 1.030 [facility] ([place]) pH, urine 6.0 [facility] ([place]) Comment: Interpretive Data ? Urine pH is affected by diet, medications, systemic acid-base disturbances, and renal tubular function. ??pH may affect urinary stone formation. ??For example, urine pH below 6.0 may help reduce the tendency for calcium phosphate stones and pH greater than 6.0 may reduce the tendency for uric acid stone formation. Source: [facility] [employer] Current Interpretive Data was last revised on 2017 Protein, ur ql Trace Negative [facility] ([place]) Glucose, ur ql Negative Negative [facility] ([place]) Ketones, ur Negative Negative [facility] ([place]) Bilirubin, ur Negative Negative [facility] ([place]) Blood, ur Negative Negative [facility] ([place]) Urobilinogen, ur 4.0(A) <2.0 mg/dL [facility] ([place]) Nitrite, ur Negative Negative [facility] ([place]) Leukocyte esterase, ur Negative Negative [facility] ([place]) UA reflex comment Reflex conditions for microscopic UA and culture not met. [facility] ([place]) Urine 09/05/2024 1:22 PM [facility] 09/05/2024 1:24 PM [facility]SO[facility] us Osvaldo Voss MD LAB MICROBIOLOGY - GENERAL O RDERABLES Final Result [facility] ([place]) 1 [facility] Department [place] [address] * (ABNORMAL) Drugs of Abuse Screen, Urine without Confirmation (09/05/2024 1:22 PM [facility]SO[facility] SK[facility]) Amphetamine, ur Screen Positive, presumptive (A) CutOff 500ng/mL Comment: Interpretive Data - Amphetamines: ??Samples containing greater than 500 ng/mL d-methamphetamine ??or other cross-reacting amphetamine compounds are reported as positive. ??Amphetamine immunoassays are subject to significant false positive rates due to cross-reactivity of non-amphetamine drugs. Confirmatory testing required for definitive results. Current Interpretive Data was last reviewed 2023. Barbiturates, ur Not Detected CutOff 200ng/mL [facility] ([place]) Comment: Interpretive Data - Barbiturates: ??Samples containing greater than 200 ng/mL secobarbital or other cross-reacting barbiturate compounds are reported as positive. ??False positive and false negative results are possible. Confirmatory testing required for definitive results. Current Interpretive Data was last reviewed 2023. Benzodiazepines, ur Not Detected CutOff 100ng/mL [facility] ([place]) Comment: Interpretive Data - Benzodiazepines: ??Samples containing greater than 100 ng/mL nordiazepam or other cross-reacting compounds are reported as positive. False positive and false negative results are possible. Confirmatory testing required for definitive results. Current Interpretive Data was last reviewed 2023. Cannabinoids, ur Screen Positive, presumptive (A) CutOff 50 ng/mL [facility] ([place]) Comment: Interpretive Data - Cannabinoids: ??Samples containing greater than 50 ng/mL delta-9 THC -COOH or other cross-reacting compounds are reported as positive. ??False positive and false negative results are possible. ??Confirmatory testing required for definitive results. Current Interpretive Data was last reviewed 2023. Cocaine, ur Not Detected CutOff 150ng/mL [facility] ([place]) Comment: Interpretive Data - Cocaine: ??Samples containing greater than 150 ng/mL benzoylecgonine or other cross-reacting compounds are reported as positive. False positive and false negative results are possible. Confirmatory testing required for definitive results. Current Interpretive Data was last reviewed 2023. Fentanyl, Ur Not Detected CutOff 5 ng/mL [facility] ([place]) Comment: Interpretive Data - Fentanyl: ??Samples containing greater than 5 ng/mL norfentanyl, fentanyl, or other cross-reacting fentanyl compounds are reported as positive. False positive and false negative results are possible. Confirmatory testing required for definitive results. Current Interpretive Data was last reviewed 2023. Methadone, ur Not Detected CutOff 300ng/mL [facility] ([place]) Comment: Interpretive Data - Methadone: ??Samples containing greater than 300 ng/mL d,l-methadone or other cross-reacting compounds are reported as positive. ??False positive and false negative results are possible. Confirmatory testing required for definitive results. Current Interpretive Data was last reviewed 2023. Opiates, ur Not Detected CutOff 300ng/mL [facility] ([place]) Comment: Interpretive Data - Opiates: ??Samples containing greater than 300 ng/mL morphine or other cross-reacting compounds are reported as positive. ??False positive and false negative results are possible. Confirmatory testing required for definitive results. Current Interpretive Data was last reviewed 2023. Oxycodone, ur Not Detected CutOff 100ng/mL [facility] ([place]) Comment: Interpretive Data - Oxycodone: ??Samples containing greater than 100 ng/mL oxycodone or other cross-reacting compounds are reported as ??positive. ??False positive and false negative results are possible. Confirmatory testing required for definitive results. Current Interpretive Data was last reviewed 2023. Phencyclidine, ur Not Detected CutOff 25 ng/mL [facility] ([place]) Comment: Interpretive Data - Phencyclidine: ??Samples containing greater than 25 ng/mL phencyclidine or other cross-reacting compounds are reported as positive. ??False positive and false negative results are possible. Confirmatory testing required for definitive results. Current Interpretive Data was last reviewed 2023. Urine Creatinine 202 mg/dL [facility] ([place]) Comment: Interpretive Data Urine Creatinine: < 10 mg/dL is extremely dilute = or > 10 but < 20 mg/dL is dilute = or > 20 mg/dL is normal Current Interpretive Data was last revised on 2018. Urine 09/05/2024 1:22 PM [facility]SOLE [facility] 09/05/2024 1:24 PM [facility]SOLE [facility]IVER Narrative [facility] ([place]) - 09/05/2024 1:46 PM [facility]SOLE [facility] Drug of Abuse screening is performed by immunoassay for medical purposes only. ??This is not to be used for Pain Management purposes. Osvaldo Voss MD LAB URINE ORDERABLES Final R esult [facility] [place]) 1 [facility] [place] [address] * XR Shoulder Right 2 or More Views (08/28/2024 9:30 AM OUTSOLE SKIVER) Anatomical Region Laterality Modality Upper Extremities, Shoulder Right Comp uted Radiography 08/28/2024 12:3 1 PM [facility]SOLE [facility]IVER Narrative 08/28/2024 12:37 PM OUTSOLE SKIVER EXAM DESCRIPTION: XR SHOULDER RIGHT 2 OR MORE VIEWS REASON FOR STUDY: pain ?? Pain to rt shoulder post fall x1 1/2 wks ? FINDINGS: Three views submitted with comparison 05/28/2022. No acute fractures are identified. ??Alignment is normal. ??There is mild glenohumeral and acromioclavicular joint osteoarthritis. ??Cervicothoracic fusion is noted. 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 THIS IS AN ELECTRONICALLY VERIFIED FINAL REPORT 08/28/2024 12:37 PM - Electronically signed by ??Fred Tafoya M.D. D: ??08/28/2024 12:37 PM T: Report ID: [id number] Reading Location: ??[id number] Procedure Note Fred Tafoya MD - 08/28/2024 EXAM DESCRIPTION: XR SHOULDER RIGHT 2 OR MORE VIEWS REASON FOR STUDY: pain Pain to rt shoulder post fall x1 1/2 wks FINDINGS: Three views submitted with comparison 05/28/2022. No acute fractures are identified. Alignment is normal. There is mild glenohumeral and acromioclavicular joint osteoarthritis. Cervicothoracic fusion is noted. 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 THIS IS AN ELECTRONICALLY VERIFIED FINAL REPORT 08/28/2024 12:37 PM - Electronically signed by Fred Tafoya M.D. T: Report ID: [id number] Reading Location: [id number] us Talia M. Guebert PA IMG XR PROCEDURES Final R esult from Last 3 Months Insurance [employer] [facility] MEDICARE Address: [address] [id number] [facility] MED[facility] Address: [address] [address] [facility] Address: [address] [address] [place] [address] Advance Directives For more information, please contact: [phone] * Full Code (Latest Code Status on File) Date Activated Date Inactivated Comments 08/24/2022 5:39 PM 08/26/2022 3:22 PM Care Teams Legal Nurse Consultant Relationship Specialty Start Date End Date Nehemiah Ulloa MD PCP - General Internal Medicine 01/14/22
--- OUTSIDE RECORDS SUMMARY | 2024-11-22 18:00 | XMS_ITS | Data Portability ---
Author Organization [facility] Address [address] [place] [address] Care Team Providers Care Process Specialist Name Role Phone [facility] Education Supervisor [phone] Assessment Encounter Date Assessment Date Assessment LastModified by Organization Details LastModified Time 11/16/2018 11/16/2018 Patient is currently working with in our spine center will be following up with him after the results of the contrast cervical spine MRI. Patient is also reporting ongoing shoulder pain bilaterally does have symptoms consistent with impingement syndrome on the left shoulder and previous history of Bankart lesion that was surgically repaired on the left. As far as her right shoulder is concerned patient does have symptoms and physical examination that are consistent with adhesive capsulitis. Patient has responded well to bilateral shoulders to corticosteroid injections past is requesting these again. 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 There is minor tears that are degenerative in nature and he has chronic tendinosis of the rotator cuff. After the steroid injection that he had from the shoulders he is done well his shoulders are moving substantially better. Patient currently stable on medication will refill him today. eliana Not available 12/14/2018 14:32:31 01/11/2019 01/11/2019 Patient continue s to have ongoing cervical and lumbar spine related complaints. I have contacted spine surgeon directly today during the visit to find out what is going on and why his office is not following up all resend referral for follow-up to Dr. Jorge Shipley's office. [email or web address] Not available 01/11/2019 18:50:37 02/28/2019 02/28/2019 Patient presente d for medication refill. Patient tolerating medication well at current dose without adverse effects. Refilled as below. Discussed plan with patient, who expressed understanding. Follow up as noted below. [email or web address] Not available 02/28/2019 12:25:31 04/12/2019 04/12/2019 Patient has stil l not heard from the spine surgeons office and did text spine surgeon today to request his office to follow-up also discussed with patient that if he does not hear from the office and happy to refer him to another surgeon. At this time I will order a bilateral shoulder steroid injection for this gentleman for ongoing treatment for his bilateral shoulder. No medication refills at this time [email or web address] Not available 04/12/2019 17:43:58 Plan of Treatment Reminders Order Date Submit Date Provider Last Modified By Organization Details Last Modified Time Details Appointments None recorded. Lab None recorded. Referral neurologis t referral - Referring this patient for evaluation for concern for possible absence seizures and possibly clonic seizure disorder versus generalize d convulsion s. Patient also has concerns of memory loss and would like to discuss this with you. [address], [address] [facility] [address], [place], [address], 9 14:41:55 ENT referral 2018 019 [email or web address] Cornell Angel MD, [address] [facility], [address], [place], [address], 9 10:50:47 Procedures subacromia l injection (PROC) [address] (Infusion), [address], [place], [address], 9 17:56:51 injection, shoulder, fluoro guidance (PROC) [address] (Infusion), [address], [place], [address], 9 17:56:50 injection, shoulder, fluoro guidance (PROC) [address] (Infusion), [address], [place], [address], 9 13:26:00 Surgeries cervical spine surgery (SURG) 2018 019 [place] [address] Brayden Shipley MD, [address], [place] [address], [place], [address], 9 11:07:13 Imaging MRI, shoulder, w/o contrast [address] - Imaging, [address], [place], [address], 9 17:53:46 MRI, shoulder, w/o contrast [address] - Imaging, [address], [place], [address], 9 17:53:46 Medication Orders hydrocodon e 10 mg-acetami nophen 325 mg tablet [address] [facility] [address] [place], [address], 9 13:25:46 hydrocodon e 10 mg-acetami nophen 325 mg tablet [address] [facility], [address] [facility], [place], [address], 9 14:33:29 hydrocodon e 10 mg-acetami nophen 325 mg tablet [address] [facility] [address], [address] [place], [address], 9 18:52:14 Kenalog 40 mg/mL suspension for injection 2018 019 [email or web address] [address] [facility] [address], [address] [place], [address], 9 12:50:01 Augmentin 875 mg-125 mg tablet 2018 019 [email or web address] [facility] [address], [address] [place], [address], 9 17:10:22 omeprazole 40 mg capsule,de layed release 2018 019 INTERFACE [facility] [address], [address] [place], [address], 12:37:33 famotidine 40 mg tablet 2018 INTERFACE [facility] [address], [address] [place], [address], 12:37:29 Patient TargetsNo targets recorded. Patient Instructions Encounter Date Encounter Id Patient Instructions Last Modified By Organization Details Last Modified Time 02/28/2019 [id number] Take prescriptio ns as directed. Return to clinic as needed. [email or web address] Not available 02/28/2019 20:20:56 Discussed with patient the adverse side affects of famotidine and omeprazole. Patient states that he has been on both medications for years. He states that if he does not take either medication he vomits bile and mucus due to increased acid in stomach. Patient verbalizes snf affect of the medications wishes to continue treatment. [email or web address] Not available 02/28/2019 20:20:36 Reason for Referral Neurologist Referral for Jacqui tral convulsion Referring this patient for evaluation for concern for possible absence seizures and possibly clonic seizure disorder versus generalized convulsions. Patient also has concerns of memory loss and would like to discuss this with you. Referring Physician: Fred Schuster, Pain Management, Encounter Date: 12/14/2018 ENT Referral for Acute sinus itis Referring Physician: Inder Vincent, Family Medicine, Encounter Date: 02/28/2019 Results Created Date Observation Date Name Description Value Unit Range Abnormal Flag Note LastModifiedBy Organization Detail LastModifiedTime 02/29/20 19 12/12/2018 MRI, shoul kezia, w/o contr ast No observ ation record ed. [address] - Imaging [address], [place], [address], 03/01/2019 16:39:08 02/29/20 19 12/12/2018 MRI, shoul kezia, w/o contr ast No observ ation record ed. [address] - Imaging [address], [place], [address], 03/01/2019 16:39:09 Result Notes None recorded. Problems Name Problem SNOMED Code Status Onset Date Resolution Date Notes Provider Name and Address Organization Details Recorded Time Gastroesoph ageal reflux disease 576954950 Active 2017 Yue Horneiano [facility] 8 14:18:41 Chronic neck pain 3840289888170 Active 2017 Yuegabrielle Horneiano [facility] 8 14:20:28 Low back pain 206354822 Active 2017 Yue Art [facility] 8 14:20:39 Acute sciatica 046163999 Active 2017 Yuegabrielle Art [facility] 8 14:20:53 Neuropathy 793915332 Active 2017 Yue Art [facility] 8 14:21:08 Anxiety 14651532 Active 2017 Yuegabrielle Horneiano [facility] 8 14:21:26 Schizoaffec tive disorder 09551341 Active 2017 Yue Art [facility] 8 14:21:43 Insomnia 279984889 Active 2017 Yue Art [facility] 8 14:21:50 Disorder of the larynx 67859808 Active 2017 Yue Art [facility] 8 14:26:47 History of depression 154496191 Active 2017 Diya Michelle maxim [facility] 8 15:21:27 Displacemen t of cervical interverteb ral disc without myelopathy 43548561 Active 2017 Fred Schuster [facility] 8 15:42:09 Cervical disc disorder with radiculopat hy 695102222 Active 2017 Fred Schuster [facility] 8 15:42:10 Lumbar radiculopat hy 465925906 Active 2017 Fred Schuster [facility] 8 15:42:11 Spinal stenosis of lumbar region 28897143 Active 2017 Fred Schuster [facility] 8 15:42:12 Lumbar disc prolapse with radiculopat hy 999880369 Active 2017 Fred Schuster [facility] 8 15:42:37 Long-term current use of opiate analgesic drug 4358593656351 08 Active 2017 Inder Vincent [facility] 8 18:39:56 Chronic pain syndrome 085888651 Active 2017 Dima Reina [facility] 8 17:06:08 Lumbar spondylosis 892134341 Active 2017 Fred Schuster [facility] 8 15:02:59 Hand muscle weakness 495965652 Active 2017 Fred Schuster [facility] 8 14:02:06 Problem Notes None recorded. Procedures Surgical History Date Name Laterality Status Provider Name and Address Organization Details Recorded Time 2 Arthrd ant ntrbd min dsc crv completed [facility] 06/23/2018 14:10:58 0 Back Surgery completed [facility] 06/23/2018 14:09:00 3 Unlisted procedure shoulder completed [facility] 06/23/2018 14:09:46 Imaging Results Imaging Date Name Status LastModified by Organiz ation Details LastModified Time 12/12/2018 MRI, shoulder, w/o contrast completed [address] - Imaging [address], [place], [address], 03/01/2019 16:39:08 12/12/2018 MRI, shoulder, w/o contrast completed [address] - Imaging [address], [place], [address], 03/01/2019 16:39:09 Procedure Notes None recorded. Medical Equipment None Reported. Allergies No known drug allergies Medications Name Sig Start Date Stop Date Status Note LastModified by Organization Details LastModified Time Augmentin 875 mg-125 mg tablet Take 1 tablet every 12 hours by oral route for 7 days. 04/12 completed Not Available Not Available Not Available famotidine 40 mg tablet Take 1 tablet every day by oral route for 90 days. 2018 active Not Available Not Available Not Avai lable Zyrtec 10 mg tablet Take 1 tablet every day by oral route as directed. 2017 active Not Available Not Available Not Avai lable hydrocodone 10 mg-acetamin ophen 325 mg tablet Take 1 tablet every 12 hours by oral route for 30 days. 2018 active Not Available Not Available Not Avai lable omeprazole 40 mg capsule,del ayed release Take 1 capsule every day by oral route for 90 days. 2018 active Not Available Not Available Not Avai lable Kenalog 40 mg/mL suspension for injection Take 40 mg by injection route. 2018 active Not Available Not Available Not Avai lable Pepcid 20 mg tablet Take 1 tablet every day by oral route at bedtime. 08/17 completed Not Available Not Available Not Available fenofibrate 160 mg tablet Take 1 tablet every day by oral route. 08/17 completed Not Available Not Available Not Available diclofenac 1 % topical gel APPLY 2 GRAM TO THE AFFECTED AREA(S) BY TOPICAL ROUTE 4 TIMES PER DAY 08/17 completed Not Available Not Available Not Available marijuana (cannabis) buds/leaves for smoking Inhale every day by inhalatio n route as needed. active Not Available Not Available No t Available Vitals Date Recorded Body height Body mass index (BMI) Body weight Body temperature Heart rate Oxygen saturation Oxygen saturation in Arterial blood by Pulse oximetry Systolic blood pressure Diastolic blood pressure Provider Name and Address Organization Details Last Updated DateTime 9 162.56 cm 30.9 kg/m2 94088.6 3 g 97.4 [degF] 70 /min 95 % 95 % 142 mm[Hg] 92 mm[Hg] Lashay [facility] 9 12:35:15 Date Recorded Body height Body mass index (BMI) Body weight Body temperature Heart rate Oxygen saturation Oxygen saturation in Arterial blood by Pulse oximetry Systolic blood pressure Diastolic blood pressure Provider Name and Address Organization Details Last Updated DateTime 9 162.56 cm 30.9 kg/m2 48254.6 3 g 96.8 [degF] 87 /min 97 % 97 % 132 mm[Hg] 80 mm[Hg] Lashay [facility] 9 14:00:04 Date Recorded Body height Body mass index (BMI) Body weight Body temperature Heart rate Oxygen saturation Oxygen saturation in Arterial blood by Pulse oximetry Systolic blood pressure Diastolic blood pressure Provider Name and Address Organization Details Last Updated DateTime 9 162.56 cm 30.9 kg/m2 43256.6 3 g 97.8 [degF] 82 /min 98 % 98 % 128 mm[Hg] 78 mm[Hg] [facility] 9 18:10:01 Date Recorded Body height Body mass index (BMI) Body weight Body temperature Heart rate Respiratory rate Oxygen saturation Oxygen saturation in Arterial blood by Pulse oximetry Systolic blood pressure Diastolic blood pressure Provider Name and Address Organization Details Last Updated DateTime 9 167.64 cm 28.9 kg/m2 19835.0 3 g 98.7 [degF] 78 /min 18 /min 97 % 97 % 120 mm[Hg] 80 mm[Hg] Debbie Caceres [facility] 9 12:13:19 Date Recorded Body height Body mass index (BMI) Body weight Body temperature Heart rate Oxygen saturation Oxygen saturation in Arterial blood by Pulse oximetry Systolic blood pressure Diastolic blood pressure Provider Name and Address Organization Details Last Updated DateTime 9 167.64 cm 27 kg/m2 29552.9 3 g 96.3 [degF] 81 /min 98 % 98 % 134 mm[Hg] 88 mm[Hg] Lashay Patch [facility] 9 17:10:14 Social History Question Answer Notes LastModified by Organizat ion Details LastModified Time Tobacco Smoking Status Current Every Day Smoker Deloris Hamptonmichelle morejon, [facility] 06/23/2018 14:08:12 Do You Have An Advance Directive? No [email or web address] Information not available 02/28/2019 What Is Your Level Of Alcohol Consumption? None [email or web address] Information not available 07/27/2018 If You Are , What Was Your Level Of Alcohol Consumption Prior To ? None [email or web address] Information not available 02/28/2019 Is Anesthesia Consult Planned? No [email or web address] Information not available 02/28/2019 Plan No [email or web address] Information not available 02/28/2019 Is Blood Transfusion Acceptable In An Emergency? No [email or web address] Information not available 02/28/2019 What Is Your Level Of Caffeine Consumption? Occasional [email or web address] Information not available 02/28/2019 Live With Cats/exposure To Cat Litter No [email or web address] Information not available 02/28/2019 How Much Tobacco Do You Chew? None [email or web address] Information not available 02/28/2019 Are You Currently Employed? No [email or web address] Information not available 02/28/2019 What Type Of Diet Are You Following? REGULAR [email or web address] Information not available 02/28/2019 Which Illicit Or Recreational Drugs Have You Used? Marijuana [email or web address] Information not available 07/27/2018 Education 2 Year College [email or web address] Information not available 02/28/2019 What Is Your Occupation? DISABLED [email or web address] Information not available 02/28/2019 Have There Been Any Changes To Your Family Or Social Situation? No [email or web address] Information not available 02/28/2019 Frequent Air Travel No [email or web address] Information not available 02/28/2019 Are There Any Guns Present In Your Home? No [email or web address] Information not available 02/28/2019 Hard Of Hearing Or Deaf In One Or Both Ears? No [email or web address] Information not available 02/28/2019 Legally Blind In One Or Both Eyes? No [email or web address] Information not available 02/28/2019 Live Alone Or With Others? With Others SIGNIFICANT [email or web address] Information not available 02/28/2019 Marital Status Single maru Informat ion not available 02/28/2019 What Was The Date Of Your Most Recent Tobacco Screening? 02/28/2019 Information not available 05/19/2019 How Many Children Do You Have? 2 [email or web address] Information not available 02/28/2019 Performs Monthly Self-breast Exam? No [email or web address] Information not available 02/28/2019 Seat Belts Used Routinely Yes [email or web address] Information not available 02/28/2019 Are You Sexually Active? Yes [email or web address] Information not available 02/28/2019 Smoke Alarm In Home Yes [email or web address] Information not available 02/28/2019 Do You Have Smoke And Carbon Monoxide Detectors In Your Home? Yes [email or web address] Information not available 02/28/2019 Are You Passively Exposed To Smoke? Yes [email or web address] Information not available 02/28/2019 How Much Tobacco Do You Smoke? 1 PPD Information not available 06/23/2018 Smoking Pre- No [email or web address] Information not available 02/28/2019 General Stress Level Low Information not available 02/28/2019 Do You Use Sunscreen Routinely? No [email or web address] Information not available 02/28/2019 How Many Years Have You Smoked Tobacco? 25 Information not available 06/23/2018 Do You Have Symptoms Associated With Zika Virus (fever, Rash, Joint Pain, Or Conjunctivitis) ? No [email or web address] Information not available 02/28/2019 Have You Recently (within The Last 12 Weeks, Or During A Current ) Traveled To Or Lived In A Zika-affected Area? No Information not available 02/28/2019 Sex: Unknown Functional Status Question Answer Note LastModified by Organization D etails LastModified Time Are you able to care for yourself? Yes [email or web address] Information n ot available 02/28/2019 What is your exercise level? None [email or web address] Information not available 02/28/2019 Mental Status None recorded. Family History Relationship Description Onset Age of this Age Resolved Age Notes LastModified by Organization Details LastModified Time Mother Heart disease brhines Not available 2017 14:07:33 Mother Hyperlipidem ia brhines Not available 2017 14:07:46 Mother Kidney disease brhines Not available 2017 14:08:01 Medical History Condition Response GI Problems Y Muscle, Joint, or Bone Problems Y Reflux/GERD Y Past Encounters Encounter ID Performer Location Encounter Start Date Encounter Closed Date Diagnosis/Indication Diagnosis SNOMED-CT Code Diagnosis ICD10 Code Diagnosis Note [id number] [place] [id number] [place] [address] 06/28/2018 15:40:48 06/28/2018 16:10:51 Chronic neck pain 2817366998 107 M54.2 Low back pain 109399435 M54.5 Anxiety 51833995 F41.9 Schizoaffe ctive disorder 20923406 F25.9 Fatigue 76906542 R53.83 [id number] [address] [address] [place] [address] 07/12/2018 12:07:39 07/12/2018 12:30:46 Low back pain 079877184 M54.5 F/U 2 weeks for MRI rersult Neuropathy 290851588 G62 .9 Hypertriglyceridemia 302 666062 E78.2 Lumbar radiculopathy 128 195934 M54.16 [id number] Inder Vincent [address] [place] [address] 07/27/2018 13:47:31 07/27/2018 15:58:33 Displacement of cervical intervertebral disc without myelopathy 72586056 M50.20 Cervical d isc disorder with radiculopathy 035916594 M50.10 Lumbar radiculopathy 128 278480 M54.16 Spinal joshua nosis of lumbar region 86603490 M48.061 Lumbar dis c prolapse with radiculopathy 495315271 M51.16 Long-term current use of opiate analgesic drug 7197143264 30579 Z79.891 [id number] Dima [address] [place] [address] [place] [address] 08/04/2018 16:38:12 08/04/2018 17:38:20 Chronic neck pain 2712863341 107 M54.2 see's pain mgmt Lumbar dis c prolapse with radiculopathy 025768797 M51.16 Spinal joshua nosis of lumbar region 49392592 M48.061 Cervical d isc disorder with radiculopathy 766418789 M50.10 Neuropathy 348797374 G62 .9 Chronic pain syndrome 37 6928151 G89.4 Atypical chest pain 1025 45658 R07.89 Pruritic disorder 008829 002 L29.9 [id number] [facility] [address] [place] [address] 08/17/2018 13:49:45 08/17/2018 15:10:26 Displacement of cervical intervertebral disc without myelopathy 38707546 M50.20 Cervical d isc disorder with radiculopathy 830973172 M50.10 Lumbar radiculopathy 128 792717 M54.16 Spinal joshua nosis of lumbar region 25093348 M48.061 Lumbar dis c prolapse with radiculopathy 338328048 M51.16 Long-term current use of opiate analgesic drug 5924309441 64715 Z79.891 Lumbar spondylosis 65040 0009 M47.26 [id number] Fred GRAMAJO [address] [place] [address] 09/21/2018 13:39:29 09/21/2018 15:11:56 Displacement of cervical intervertebral disc without myelopathy 97333690 M50.20 Cervical d isc disorder with radiculopathy 216335832 M50.10 Lumbar radiculopathy 128 572454 M54.16 Spinal joshua nosis of lumbar region 15982187 M48.061 Lumbar dis c prolapse with radiculopathy 417815801 M51.16 Long-term current use of opiate analgesic drug 8582096771 08096 Z79.891 Lumbar spondylosis 91672 0009 M47.26 [id number] Fred MARS [address] [place] [address] 10/12/2018 12:43:00 10/12/2018 14:06:37 Displacement of cervical intervertebral disc without myelopathy 72343152 M50.20 Cervical d isc disorder with radiculopathy 235949251 M50.10 Lumbar radiculopathy 128 098406 M54.16 Spinal joshua nosis of lumbar region 01781145 M48.061 Lumbar dis c prolapse with radiculopathy 633151603 M51.16 Long-term current use of opiate analgesic drug 0827000228 61580 Z79.891 Lumbar spondylosis 13841 0009 M47.26 Hand muscle weakness 298 347857 M62.81 [id number] Fred Schuster [address] [place] [address] 11/16/2018 12:31:38 11/16/2018 13:28:42 Displacement of cervical intervertebral disc without myelopathy 55806570 M50.20 Cervical d isc disorder with radiculopathy 357757551 M50.10 Lumbar radiculopathy 128 169479 M54.16 Spinal joshua nosis of lumbar region 87106433 M48.061 Lumbar dis c prolapse with radiculopathy 118406588 M51.16 Long-term current use of opiate analgesic drug 6442813407 87335 Z79.891 Lumbar spondylosis 01970 0009 M47.26 Hand muscle weakness 298 875868 M62.81 Adhesive c apsulitis of shoulder 252838661 M75.01 Impingemen t syndrome of shoulder region 296145823 M75.42 [id number] Fred Schuster [facility] MADISYN [address] [place] [address] 12/14/2018 13:40:36 12/14/2018 14:58:04 Displacement of cervical intervertebral disc without myelopathy 00044884 M50.20 Cervical d isc disorder with radiculopathy 634038376 M50.10 Lumbar radiculopathy 128 766811 M54.16 Spinal joshua nosis of lumbar region 39307142 M48.061 Lumbar dis c prolapse with radiculopathy 814607350 M51.16 Long-term current use of opiate analgesic drug 9100619892 47496 Z79.891 Lumbar spondylosis 90015 0009 M47.26 Hand muscle weakness 298 407782 M62.81 Adhesive c apsulitis of shoulder 188012276 M75.01 Impingemen t syndrome of shoulder region 751519925 M75.42 Central convulsion 82910 005 R56.9 [id number] Fred MARS [address] [place] [address] 01/11/2019 17:52:38 01/11/2019 18:53:26 Displacement of cervical intervertebral disc without myelopathy 44063338 M50.20 Cervical d isc disorder with radiculopathy 701844155 M50.10 Lumbar radiculopathy 128 402113 M54.16 Spinal joshua nosis of lumbar region 55899171 M48.061 Lumbar dis c prolapse with radiculopathy 731654706 M51.16 Long-term current use of opiate analgesic drug 8604325376 27155 Z79.891 Lumbar spondylosis 58384 0009 M47.26 Hand muscle weakness 298 698854 M62.81 Adhesive c apsulitis of shoulder 135209027 M75.01 Impingemen t syndrome of shoulder region 815290660 M75.42 Central convulsion 99280 005 R56.9 [id number] Inder TracyKEYANNA MARS [facility] [address] [place] [address] 02/28/2019 11:59:39 02/28/2019 12:59:09 Gastroesophageal reflux disease 213539853 K21.9 Renewal of prescription 848310525 Z76.0 Acute sinusitis 73674893 J01.90 [id number] Fred MARS [facility] [place] [address] [place] [address] 04/12/2019 17:04:06 04/12/2019 18:06:38 Displacement of cervical intervertebral disc without myelopathy 95665015 M50.20 Cervical d isc disorder with radiculopathy 734646420 M50.10 Lumbar radiculopathy 128 277223 M54.16 Spinal joshua nosis of lumbar region 61633267 M48.061 Lumbar dis c prolapse with radiculopathy 775129710 M51.16 Long-term current use of opiate analgesic drug 0654175492 54888 Z79.891 Lumbar spondylosis 91628 0009 M47.26 Hand muscle weakness 298 095315 M62.81 Adhesive c apsulitis of shoulder 487664396 M75.01 Impingemen t syndrome of shoulder region 315913731 M75.42 Central convulsion 69186 005 R56.9 Health Concerns Section Related Observation LastModified by Organization Detai ls LastModified Time None Recorded Concern Status LastModified by Organization Details LastModified Time None Recorded Advance Directives Directive N: Payers Encounter Date Sequence Insurance Name Policy Number Policy [place] Covered Member ID [place] Member ID Guarantor Name 11/16/2018 1 [place] Sam Perezon [id number] Samernie McleanRosenthal 12/14/2018 1 [place] Sam Perezon [id number] Sam Mcleanguson 01/11/2019 1 [place] Samernie McleanRosenthal [id number] Sam Rosenthal 02/28/2019 1 [place] Sam Mcleanguson [id number] Sam Rosenthal 04/12/2019 1 [place] Sam Perezon [id number] Sam Perezon Notes Date Note Type Note Provider Name and Address Organization Details Recorded Time 11/16/2018 text/html Patient reports that he did have opportunity to see [facility] spine spinner he did see Dr. Jorge Shipley's nurse practitioner she did order a contrast MRI of the cervical spine at this time it is unclear whether or not he will need surgical intervention and they are pending the results for the MRI which the patient reported that he completed here at [facility] just a few days ago. Otherwise everything is stable the patient however he is reporting that his bilateral shoulders are problematic for him causing pain and dysfunction. No new injuries to the shoulders. Patient here today for: pain management #1: The patient complains of: neck/back pain/ Rt leg Mechanism of injury/chronic pain onset: Pain: 02/01 Location of symptoms: Onset:neck Quality:pressure Aggravating Factors: movement and sitting Relieving Factors: pain medication, hot baths, smoking marijuana Radiating, yes up to the head/ rt leg Severity (Mild Moderate Severe): severe Timing: Constant (75-100%) Prior history of symptoms: Diagnostic Imaging/Imaging Studies:MRI Electrodiagnostic Studies: On 2018 extremities. Patient has a report for review today. This will be scanned into his chart Treatment tried and failed: physical therapy causing more pain Medications tried and failed: tylenol, ibuprofen Side Effects of Pain Medication: none --ORT Score: 0-3 low risk 4-7 moderate risk 8 or higher high risk -07/27/2018- 1 08/17/18-14 --PEG scale: Q1: What # from 0-10 best describes your pain in the past week (0 = no pain, 10 = worst you can imagine ) = {{1 2 3 4 5 6 7 8* 9 1 0}} Q2: What # from 0-10 describes how, during the past week, pain has interfered with you enjoyment of life (0 = not at all , 10 = complete interference )= {{1 2 3 4 5 6 7 8* 9 1 0}} Q3: What # from 0-10 describes how, during the past week, pain has interfered with your general activity (0 = not at all , 10 = complete interference )= {{1 2 3 4 5 6 7 8* 9 1 0}} PEG average score: - Date: 07/27/2018-9 09/21/18-8.33 10/12/18: 7 11/16/18-8 --Pain Medications Taken Today: HYDROCODONE 11/16/18 Patient uses medical marijuana and HAS CARD NOW. LAST USED 11/15/18 pm [facility] and [facility]: [facility] 13:27[facility]34 12/14/2018 text/html Patient presente d today for medication refill. He did have an opportunity to have the cervical spine MRI with contrast for the surgeon's office for follow-up regarding possible need for surgery on his cervical spine. This time he is awaiting for review from the surgeon's office regarding his eligibility for surgery or not. Patient is also reporting that since the last encounter he has had weight he stated to be similar to a seizure-like convulsion this is not happened to him twice both with similar mechanisms where he stepped outside with cold wind blowing and his body sees seizing also he is reported that oftentimes he will have absent like seizures where he will lose his train of thought become silent to rule and when he comes to he does not remember what happened. This is been happening for approximately 1 yr. 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 and he is also noticing that he is having difficulty with memory and recalling what he would like to say or finding the words Patient here today for: pain management #1: The patient complains of: neck/back pain/ Rt leg Mechanism of injury/chronic pain onset: Pain: 04/03 Location of symptoms: Onset:neck Quality:pressure Aggravating Factors: movement and sitting Relieving Factors: pain medication, hot baths, smoking marijuana Radiating, yes up to the head/ rt leg Severity (Mild Moderate Severe): severe Timing: Constant (75-100%) Prior history of symptoms: Diagnostic Imaging/Imaging Studies:MRI Electrodiagnostic Studies: On 2018 extremities. Patient has a report for review today. This will be scanned into his chart Treatment tried and failed: physical therapy causing more pain Medications tried and failed: tylenol, ibuprofen Side Effects of Pain Medication: none --ORT Score: 0-3 low risk 4-7 moderate risk 8 or higher high risk -07/27/2018- 1 08/17/18-14 --PEG scale: Q1: What # from 0-10 best describes your pain in the past week (0 = no pain, 10 = worst you can imagine ) = {{1 2 3 4 5 6* 7 8 9 1 0}} Q2: What # from 0-10 describes how, during the past week, pain has interfered with you enjoyment of life (0 = not at all , 10 = complete interference )= {{1 2 3 4 5 6* 7 8 9 1 0}} Q3: What # from 0-10 describes how, during the past week, pain has interfered with your general activity (0 = not at all , 10 = complete interference )= {{1 2 3 4 5 6* 7 8 9 1 0}} PEG average score: - Date: 07/27/2018-9 09/21/18-8.33 10/12/18: 7 11/16/18-8 -6 --Pain Medications Taken Today: HYDROCODONE 12/14/18 Patient uses medical marijuana and HAS CARD NOW. LAST USED 12/14/18 ETOH and amount: [facility] 14:35:45 01/11/2019 text/html Patient presente jona today for medication follow-up he reports that he has not seen the spine surgeon yet he has called several times and noticed nobody is calling him back for scheduling reports that he has had the MRI with contrast and is waiting to see the surgeon. Everything is stable his medication remains functional with no new issues since her last visit Patient here today for: pain management #1: The patient complains of: neck/back pain/ Rt leg Mechanism of injury/chronic pain onset: Pain: 02/01 Location of symptoms: Onset:neck Quality:pressure Aggravating Factors: movement and sitting Relieving Factors: pain medication, hot baths, smoking marijuana Radiating, yes up to the head/ rt leg Severity (Mild Moderate Severe): severe Timing: Constant (75-100%) Prior history of symptoms: Diagnostic Imaging/Imaging Studies:MRI Electrodiagnostic Studies: On 2018 extremities. Patient has a report for review today. This will be scanned into his chart Treatment tried and failed: physical therapy causing more pain Medications tried and failed: tylenol, ibuprofen Side Effects of Pain Medication: none --ORT Score: 0-3 low risk 4-7 moderate risk 8 or higher high risk -07/27/2018- 1 08/17/18-14 --PEG scale: Q1: What # from 0-10 best describes your pain in the past week (0 = no pain, 10 = worst you can imagine ) = {{1 2 3 4 5* 6 7 8 9 1 0}} Q2: What # from 0-10 describes how, during the past week, pain has interfered with you enjoyment of life (0 = not at all , 10 = complete interference )= {{1 2 3 4 5* 6 7 8 9 1 0}} Q3: What # from 0-10 describes how, during the past week, pain has interfered with your general activity (0 = not at all , 10 = complete interference )= {{1 2 3 4 5* 6 7 8 9 1 0}} PEG average score: - Date: 07/27/2018-9 09/21/18-8.33 10/12/18: 7 11/16/18-8 -6 01/11/19-5 --Pain Medications Taken Today: HYDROCODONE 01/11/19 7am Patient uses medical marijuana and HAS CARD NOW. LAST USED 01/11/19 7 am ETOH and amount: Denies use Fred Schuster jean-pierre, [facility] 01/11/2019 18:52:20 02/28/2019 text/html 43 year old male presents today to establish care. He has complaint of sinus pressure for more than one year. Today he states within the last month the pressure is worse than it has been. He complains of episodes of shooting pain in the right ear. He would like refill on medication and to establish care. HE denies fever, chill, nausea, diarrhea, constipation general malaise or chest pain. Inder Balderasnaz morejon, [facility] 02/28/2019 20:21:02 04/12/2019 text/html Patient presente d today requesting repeat bilateral shoulder injections. Reports that he is otherwise stable we will update his controlled medication that they prescribed and he has been is continued on overdose and use of appropriate Narcan use Jorje Young caregiver and girlfriend here today and she was also educated. he has not Use the [place] approximately 3 weeks as he is reporting that during the summer months he does not have to use as much medication. Patient here today for: pain management #1: The patient complains of: neck/back pain/ Rt leg Mechanism of injury/chronic pain onset: Pain: 01/01 Location of symptoms: Onset:neck Quality:pressure Aggravating Factors: movement and sitting Relieving Factors: pain medication, hot baths, smoking marijuana Radiating, yes up to the head/ rt leg Severity (Mild Moderate Severe): severe Timing: Constant (75-100%) Prior history of symptoms: Diagnostic Imaging/Imaging Studies:MRI Electrodiagnostic Studies: On 2018 extremities. Patient has a report for review today. This will be scanned into his chart Treatment tried and failed: physical therapy causing more pain Medications tried and failed: tylenol, ibuprofen Side Effects of Pain Medication: none --ORT Score: 0-3 low risk 4-7 moderate risk 8 or higher high risk -07/27/2018- 1 08/17/18-14 --PEG scale: Q1: What # from 0-10 best describes your pain in the past week (0 = no pain, 10 = worst you can imagine ) = {{1 2 3* 4 5 6 7 8 9 1 0}} Q2: What # from 0-10 describes how, during the past week, pain has interfered with you enjoyment of life (0 = not at all , 10 = complete interference )= {{1 2 3* 4 5 6 7 8 9 1 0}} Q3: What # from 0-10 describes how, during the past week, pain has interfered with your general activity (0 = not at all , 10 = complete interference )= {{1 2 3* 4 5 6 7 8 9 1 0}} PEG average score: - Date: 07/27/2018-9 09/21/18-8.33 10/12/18: 7 11/16/18-8 -6 01/11/19-5 04/12/19-3 --Pain Medications Taken Today: HYDROCODONE few weeks Patient uses medical marijuana and HAS CARD NOW. LAST USED 04/12/19 am ETOH and amount: Denies use Fred Schuster [facility] 04/12/2019 17:44:30
--- OUTSIDE RECORDS SUMMARY | 2024-11-22 18:00 | XMS_ITS | Referral Summary ---
Author Organization [facility] Orthopedic [facility] Address [address] [place] [address] Care Team Providers Care Toxicologist Name Role Phone Nehemiah Ulloa MD Primary Care Provider [phone] Encounters Date Type Department Care Team Description 11/16/2024 9:00 AM CRUSHER OPERATOR Office Visit [facility] Medical [facility] Orthopedics and Sports Medicine [address] [place] [address] [address] [place] [address] Cristobal Lowe MD Acute pain of right shoulder (Primary Dx); Smoker; Nontraumatic complete tear of right rotator cuff 11/05/2024 9:38 PM CRUSHER OPERATOR - 11/05/2024 10:28 PM CRUSHER OPERATOR Emergency [facility] Emergency Department [address] [place] [address] Zeus Brink MD Acute pain of right shoulder (Primary Dx); Acute left ankle pain; Anal pain Discharge Disposition: Discharge to home or self care 10/31/2024 Telephone [facility] Orthopedics and Sports Medicine [address] [place] [address] [address] [place] [address] Cristobal Lowe MD sooner appointment 09/27/2024 2:05 PM CRUSHER OPERATOR - 09/27/2024 11:59 PM CRUSHER OPERATOR Hospital Encounter [facility] ([facility]) [address] [place] [id number] Acute pain of right shoulder Discharge Disposition: Discharge to home or self care 09/05/2024 12:37 PM CRUSHER OPERATOR - 09/05/2024 11:59 PM CRUSHER OPERATOR Hospital Encounter [facility] Emergency, Room R Discharge Disposition: Discharge to home or self care 09/05/2024 1:07 PM CRUSHER OPERATOR - 09/05/2024 4:24 PM CRUSHER OPERATOR Emergency [facility] Emergency Department [address] [place] [address] Osvaldo Voss MD Suicidal ideation (Primary Dx) Discharge Disposition: Discharge to home or self care 08/28/2024 9:05 AM CRUSHER OPERATOR - 08/28/2024 11:59 PM CRUSHER OPERATOR Hospital Encounter [facility] Di[facility] [address] [place] [address] Acute pain of right shoulder Discharge Disposition: Discharge to home or self care 08/28/2024 9:15 AM CRUSHER OPERATOR Office Visit [facility] Orthopedics and Sports Medicine [address] [place] [address] [address] [place] [address] Talia Lubin PA Acute pain of right shoulder (Primary Dx) from Last 3 Months Allergies Active Allergy Reactions Criticality Noted Date [...] mg total) by mouth daily 4 11/16/19 25 Discontinu ed(Therapy completed) Active Problems Problem Noted Date Diagnosed Date Acute pain of right shoulder 08/28/2024 Mood disorder 12/09/2022 S/P cervical spinal fusion 08/24/2022 Asthma 08/18/2022 Cervical spondylosis with myelopathy 07/10/2022 Overview (07/10/2022): Added automatically from request for surgery [id number] Instability of left shoulder joint 02/09/2022 Overview (02/09/2022): Added automatically from request for surgery [id number] Nontraumatic complete tear of left rotator cuff 02/09/2022 Overview (02/09/2022): Added automatically from request for surgery [id number] Cervical facet syndrome 06/19/2016 Cervical vertebral fusion 06/19/2016 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 JUAN (obstructive sleep apnea) 01/08/2016 PLMD (periodic limb movement disorder) 6 Hypersomnia 11/19/2015 Disc disease, degenerative, lumbar or lumbosacra l 11/01/2015 Muscle spasm of back 11/01/2015 Tobacco dependence 09/30/2015 Gastroesophageal reflux disease without esophagi tis 09/24/2015 Hoarseness of voice 09/24/2015 Vocal cord nodule 09/24/2015 Social History Tobacco Use Types Packs/Day Years [...] on file Legal Sex Male 10:12 AM CRUSHER OPERATOR Gender Identity Not on file Sexual Orientation Not on file Last Filed Vital Signs Vital Sign Reading Time Taken Comments Blood Pressure 141/77 11/05/2024 9:37 PM CRUSHER OPERATOR Pulse 84 11/05/2024 9:37 PM CRUSHER OPERATOR Temperature 36.9 ??C (98.5 ??F) 11/05/2024 9:37 PM CS T Respiratory Rate 20 11/05/2024 9:37 PM CRUSHER OPERATOR Oxygen Saturation 100% 11/05/2024 9:37 PM CRUSHER OPERATOR Inhaled Oxygen Concentration - - Weight 76.2 kg (168 lb) 11/16/2024 9:10 AM CRUSHER OPERATOR Height 167.6 cm (5' 6 ) 11/16/2024 9:10 AM CRUSHER OPERATOR Body Mass Index 27.12 11/16/2024 9:10 AM CRUSHER OPERATOR Plan of Treatment Not on file Medical Devices Implanted Type Area Business Development Recruiter Device Identifier Shelf Expiration Date Model / Serial / Lot Cervical Spine Fusion Instrumentation Spine Cervical Lt Shoulder Bicept And Cuff Reattachment Anchors Left: Shoulder Depuy Synthes Spine Symphony 4mm Spine Occipitocervicothoracic Short Lateral Offset [id number] - [id number] Implanted:Qty: 1 on 08/24/2022 by Monico Ramon MD at [facility] N/A: Spine Cervical Depuy Synthes Spine [id number] / / Depuy Synthes Spine 3.5mm 14mm Ply Spine Screw Bone Nonsterile 4mm Kenny [id number] - [id number] Implanted:Qty: 7 on 08/24/2022 by Monico Ramon MD at [facility] N/A: Spine Cervical Depuy Synthes Spine [id number] / / Depuy Synthes Spine 4mm 240mm Straight Kenny Spinal Titanium [id number] - [id number] Implanted:Qty: 2 on 08/24/2022 by Monico Ramon MD at [facility] N/A: Spine Cervical Depuy Synthes Spine [id number] / / Depuy Synthes Spine 4.5mm 26mm Ply Spine Pedicle Screw Bone Nonsterile 4mm Kenny [id number] - [id number] Implanted:Qty: 3 on 08/24/2022 by Monico Ramon MD at [facility] N/A: Spine Cervical Depuy Synthes Spine [id number] / / Depuy Synthes Spine [id number] Set Screw - [id number] Implanted:Qty: 14 on 08/24/2022 by Monico Ramon MD at [facility] N/A: Spine Cervical Depuy Synthes Spine [id number] / / Depuy Synthes Spine 5.5mm 30mm Ply Spine Pedicle Screw Bone Nonsterile 4mm Kenny [id number] - [id number] Implanted:Qty: 4 on 08/24/2022 by Monico Ramon MD at [facility] N/A: Spine Cervical Depuy Synthes Spine [id number] / / Medtronic [employer] Bmp Infuse Sm [id number] - [id number] Implanted:Qty: 1 on 08/24/2022 by Monico Ramon MD at [facility] N/A: Spine Cervical Medtronic Inc 10/25/2024 [id number] / / [id number] Allosource 1-4mm Freeze Dried Crushed Graft 30ml Bone Cancellous [id number] - [id number] Implanted:Qty: 1 on 08/24/2022 by Monico Ramon MD at [facility] N/A: Spine Cervical Allosource 08/03/2026 [id number] / / [id number] Procedures Procedure Name Priority Date/Time Associated Diagnosis Comments MRI SHOULDER RIGHT WO CONTRAST Schedule Routine, Read Routine (OP Routine) 09/27/2024 2:50 PM CRUSHER OPERATOR Acute pain of right shoulder EGFR STAT 09/05/2024 1:28 PM CRUSHER OPERATOR DIFFERENTIAL AUTO STAT 09/05/2024 1:2 8 PM CRUSHER OPERATOR ETHANOL STAT 09/05/2024 1:28 PM CRUSHER OPERATOR THYROID FUNCTION CASCADE STAT 09/05/2024 1:28 PM CRUSHER OPERATOR COMPREHENSIVE METABOLIC PANEL STAT 09/05/2024 1:28 PM CRUSHER OPERATOR CBC WITH AUTO DIFFERENTIAL STAT 09/05/2024 1:28 PM CRUSHER OPERATOR COVID-19 CORONAVIRUS RNA Routine 09/05/2024 1:28 PM CRUSHER OPERATOR DRUGS OF ABUSE SCREEN, URINE WITHOUT CONFIRMATION STAT 09/05/2024 1:22 PM CRUSHER OPERATOR URINALYSIS AND REFLEX TO MICROSCOPIC AND CULTURE STAT 09/05/2024 1:22 PM CRUSHER OPERATOR XR SHOULDER RIGHT 2 OR MORE VIEWS Schedule Routine, Read Routine (OP Routine) 08/28/2024 9:30 AM CRUSHER OPERATOR Acute pain of right shoulder from Last 3 Months Results * MRI Shoulder Right WO Contrast (09/27/2024 2:50 PM CRUSHER OPERATOR) Anatomical Region Laterality Modality Upper Extremities Right Magnetic Reson ance 09/27/2024 3:58 PM CRUSHER OPERATOR Impressions 09/27/2024 4:06 PM CRUSHER OPERATOR 1. Right rotator cuff tendinopathy with massive, [...] Avni Rivers M.D. Narrative 09/27/2024 4:06 PM CRUSHER OPERATOR EXAMINATION: 1. MRI right shoulder without contrast [...] signed by: Avni Rivers M.D. [facility] MRI PROCEDURES Final Result * COVID-19 Coronavirus RNA Nasopharyngeal (09/05/2024 1:28 PM CRUSHER OPERATOR) COVID-19 RNA Negative Negative Nasopharyngeal 09/05/2024 1: 28 PM CRUSHER OPERATOR 09/05/2024 1:34 PM CRUSHER OPERATOR Narrative [facility] - 09/05/2024 2:06 PM CRUSHER OPERATOR Is the patient experiencing any symptoms consistent with COVID (eg. Fever, cough, shortness of breath)?->No What is the reason for testing?->Screening prior to [facility] health admission ??Interpretive data: Testing performed by [facility]. ??This test is performed using the [employer] Xpert Xpress CoV-2 plus assay. This is a real-time RT-PCR test intended for the qualitative detection of nucleic acid from the SARS-CoV-2. This assay has been cleared by the [place] Food and Drug administration. The performance characteristics have been verified by [facility]. ??Results must be considered in the clinical context, and a negative result does not rule out infection. Interpretive data last revised 2024. Osvaldo Voss MD LAB MICROBIOLOGY - GENERAL O RDERABLES Final Result [facility] 1 [facility] [place] [address] * eGFR (09/05/2024 1:28 PM CRUSHER OPERATOR) eGFR >90 >=60 mL/min/1. 73 m2 Comment: [...] last reviewed 2021. Blood 09/05/2024 1:28 PM CRUSHER OPERATOR 09/05/2024 1:33 PM CRUSHER OPERATOR us Osvaldo Voss MD LAB BLOOD ORDERABLES Final R esult [facility] [place] [address] * Differential, auto (09/05/2024 1:28 PM CRUSHER OPERATOR) Pathologist [facility] Neutrophil abs 6.4 1.5 - 6.5 K/cumm Imm gran abs 0.0 0.0 - 0.1 K/cumm [facility] Lymphocyte abs 2.5 0.8 - 3.3 K/cumm [...] revised on 2018. Blood 09/05/2024 1:28 PM CRUSHER OPERATOR 09/05/2024 1:33 PM CRUSHER OPERATOR us Osvaldo Voss MD LAB BLOOD ORDERABLES Final R esult [facility] 1 [facility] [place] [address] * Thyroid Function Archuleta (09/05/2024 1:28 PM CRUSHER OPERATOR) Pathologist [facility] TSH 1.09 0.30 - 4.20 mcIUnit/mL Blood 09/05/2024 1:28 PM CRUSHER OPERATOR 09/05/2024 1:33 PM CRUSHER OPERATOR Osvaldo Voss MD LAB BLOOD ORDERABLES Final R esult [facility] 1 [facility] [place] [address] * CBC with auto differential (09/05/2024 1:28 PM CRUSHER OPERATOR) Pathologist [facility] WBC 9.9 3.8 - 9.9 K/cumm Hgb 15.3 13.0 - 17.5 g/dL [facility] Hct 45.9 38.9 - 50.3 % [facility] Plt 210 150 - 400 K/cumm [facility] MPV 11.0 9.1 - 12.3 fL [facility] RBC 5.24 4.30 - 5.80 M/cumm [facility] MCV 87.6 81.3 - 96.4 fL [facility] MCH 29.2 27.1 - 33.3 pg [facility] MCHC 33.3 32.3 - 35.7 g/dL [facility] RDW CV 13.4 11.1 - 14.9 % [facility] RDW SD 43.4 35.7 - 48.1 fL [facility] NRBC abs 0.00 0.00 - 0.01 K/cumm [facility] Blood (Blood, Venous) 09/05/2024 1:28 PM CRUSHER OPERATOR 09/05/2024 1:33 PM CRUSHER OPERATOR Osvaldo Voss MD LAB BLOOD ORDERABLES Final R esult Performing Organization Address City/[facility]/ZIP Co de Phone Number [facility] [place] [address] * Ethanol (09/05/2024 1:28 PM CRUSHER OPERATOR) Ethanol <10 <=10 mg/dL Comment: Interpretive Data Legal limit of intoxication > or = 80 mg/dL Levels > or = 400 mg/dL are potentially TOXIC. Current interpretive data was last revised on 2018. Blood 09/05/2024 1:28 PM CRUSHER OPERATOR 09/05/2024 1:33 PM CRUSHER OPERATOR Osvaldo Voss MD LAB BLOOD ORDERABLES Final R esrust Performing Organization Address [facility] Co de Phone Number [facility] 1 [facility] [place] [employer] [place] [address] * (ABNORMAL) Comprehensive metabolic panel (09/05/2024 1:28 PM CRUSHER OPERATOR) Sodium 137 135 - 145 mmol/L Potassium, pl 3.4 3.3 - 4.9 mmol/L [facility] Chloride 101 97 - 110 mmol/L [facility] CO2 25 22 - 32 mmol/L [facility] Anion gap 12 2 - 15 mmol/L [facility] BUN 5(L) 6 - 25 mg/dL [facility] Creatinine 0.70(L) 0.80 - 1.30 mg/dL [facility] Glucose 82 70 - 199 mg/dL [facility] ([place]) Comment: Interpretive Data Fasting glucose >/= [...] classification and Diagnosis of Diabetes Diabetes Care 202; 46: S19-S40. Current interpretive data was last [...] [facility] Blood 09/05/2024 1:28 PM CRUSHER OPERATOR 09/05/2024 1:33 PM CRUSHER OPERATOR us Osvaldo Voss MD LAB BLOOD ORDERABLES Final R esult [facility] 1 [facility] [place] [address] * (ABNORMAL) Urinalysis reflex to microscopic and culture Urine (09/05/2024 1:22 PM CRUSHER OPERATOR) Color, ur Yellow Yellow Clarity, ur Clear [...] tendency for uric acid stone formation. Source: [facility] [employer] Current Interpretive Data was last revised on 2017 Protein, ur ql Trace Negative [facility] Glucose, ur ql Negative Negative [facility] Ketones, ur Negative Negative [facility] Bilirubin, ur Negative Negative [facility] Blood, ur Negative Negative [facility] Urobilinogen, ur 4.0(A) <2.0 mg/dL [facility] ([place] Nitrite, ur Negative Negative [facility] ([place]) Leukocyte esterase, ur Negative Negative [facility] UA reflex comment Reflex conditions for microscopic UA and culture not met. [facility] Urine 09/05/2024 1:22 PM CRUSHER OPERATOR 09/05/2024 1:24 PM CRUSHER OPERATOR us Osvaldo Voss MD LAB MICROBIOLOGY - GENERAL O RDERABLES Final Result [facility] 1 [facility] [place] [address] * (ABNORMAL) Drugs of Abuse Screen, Urine without Confirmation (09/05/2024 1:22 PM CRUSHER OPERATOR) Amphetamine, ur Screen Positive, presumptive (A) CutOff [...] 2023. Opiates, ur Not Detected CutOff 300ng/mL [facility] Comment: Interpretive Data - Opiates: ??Samples containing greater than 300 ng/mL morphine or other cross-reacting compounds are reported as positive. ??False positive and false negative results are possible. Confirmatory testing required for definitive results. Current Interpretive Data was last reviewed 2023. Oxycodone, ur Not Detected CutOff 100ng/mL [facility] Comment: Interpretive Data - Oxycodone: ??Samples containing greater than 100 ng/mL oxycodone or other cross-reacting compounds are reported as ??positive. ??False positive and false negative results are possible. Confirmatory testing required for definitive results. Current Interpretive Data was last reviewed 2023. Phencyclidine, ur Not Detected CutOff 25 ng/mL [facility] Comment: Interpretive Data - Phencyclidine: ??Samples containing greater than 25 ng/mL phencyclidine or other cross-reacting compounds are reported as positive. ??False positive and false negative results are possible. Confirmatory testing required for definitive results. Current Interpretive Data was last reviewed 2023. Urine Creatinine 202 mg/dL [facility] Comment: Interpretive Data Urine Creatinine: < 10 mg/dL is extremely dilute = or > 10 but < 20 mg/dL is dilute = or > 20 mg/dL is normal Current Interpretive Data was last revised on 2018. Urine 09/05/2024 1:22 PM CRUSHER OPERATOR 09/05/2024 1:24 PM CRUSHER OPERATOR Narrative [facility] - 09/05/2024 1:46 PM CRUSHER OPERATOR Drug of Abuse screening is performed by immunoassay for medical purposes only. ??This is not to be used for Pain Management purposes. Osvaldo Voss MD LAB URINE ORDERABLES Final R esult [facility] 1 [facility] [place] [address] * XR Shoulder Right 2 or More Views (08/28/2024 9:30 AM CRUSHER OPERATOR) Anatomical Region Laterality Modality Upper Extremities, Shoulder Right Comp uted Radiography 08/28/2024 12:3 1 PM CRUSHER OPERATOR Narrative 08/28/2024 12:37 PM CRUSHER OPERATOR EXAM DESCRIPTION: XR SHOULDER RIGHT 2 OR [...] D: ??08/28/2024 12:37 PM T: Report ID: [id number] Reading Location: ??[id number] Procedure Note Fred Tafoya MD - 08/28/2024 [...] by Fred Tafoya M.D. T: Report ID: [id number] Reading Location: [id number] [facility] XR PROCEDURES Final R esult from Last 3 Months Insurance MEDICARE SOL[employer]IONS [facility] MEDICARE Address: [facility] [address] [place] [address] [facility] MDCR HMO REF [facility] MEDIC[facility] Address: [facility] [address] [place] [address] MEDICARE SOLUTIONS Advance Directives For more information, please contact: [phone] * Full Code (Latest Code Status on File) Date Activated Date Inactivated Comments 08/24/2022 5:39 PM 08/26/2022 3:22 PM Care Teams Toxicologist Relationship Specialty Start Date End Date Nehemiah Ulloa MD PCP - General Internal Medicine 01/14/22
--- OUTSIDE RECORDS SUMMARY | 2024-11-22 18:00 | XMS_ITS | Continuity of Care Document ---
Author Organization [facility] Address [address] [place] [address] [place] [address] Phone Care Team Providers Care Music Director Name Role Phone David Flood MD Unavailable Unavailable Allergies, Adverse Reactions, Alerts Substance Reaction Status Criticality No Known Allergies Active No Inform ation Medications Medication Instructions Dosage Effective Dates (start - stop) Status Comments [place] 10 mg-325 mg tablet take 1 by Oral route 4 times every day as needed 1 - Active avoid driving or operate machines, fenofibrate 160 mg tablet take 1 tablet by oral route every day 160 MG - Active Valium 5 mg tablet take 1 tablet by oral route 2 times every day as needed 5 MG - Active PRN for musc le pain, avoid driving or operate machines omeprazole 20 mg capsule,delayed release take 1 capsule by oral route every day before a meal 20 MG - Active Procedures Procedure Date OFFICE/OUTPATIENT VISIT, EST OFFICE/OUTPATIENT VISIT, EST OFFICE/OUTPATIENT VISIT, EST OFFICE/OUTPATIENT VISIT, EST OFFICE/OUTPATIENT VISIT, EST OFFICE/OUTPATIENT VISIT, EST OFFICE/OUTPATIENT VISIT, EST OFFICE/OUTPATIENT VISIT, EST OFFICE/OUTPATIENT VISIT, EST OFFICE/OUTPATIENT VISIT, EST OFFICE/OUTPATIENT VISIT, EST PREV VISIT, NEW, AGE 40-64 OFFICE/OUTPATIENT VISIT, NEW Advance Directives Directive Yes / No Effective Date File Name No Information Encounters Encounter Description Practice Location Reason(s) For Visit Diagnoses Date Provider Providers Copied on Encounter [facility], [address], [place], [place], [address], [place] tel:[phone] [facility] No Information 7 Remigio Hernandez. [address], [place], [place], [address] , [place]. tel:[phone] Referring Provider: David Flood, [address], [place], [place], [address]. tel:[phone] OFFICE/OUTPA TIENT VISIT, EST [facility], [address], [place], [place], [address], [place] tel:[phone] [facility] chronic pain1 (chief complaint) HLP (chief complaint) thyroid ndoule1 (chief complaint) Thyroid noduleHyperlipidemi aChronic pain syndrome Remigio Hernandez. [address], [place], [place], [address] , [place]. tel:[phone] Referring Provider: Haim Garrison [address], [place], [place], [address]. tel:[phone] OFFICE/OUTPA TIENT VISIT, EST [facility], [address], [place], [place], [address], [place] tel:[phone] [facility] chronic pain (chief complaint) hanson (chief complaint) Chronic pain syndromeBarrett's esophagus without dysplasia 7 Remigio Hernandez. [address], [place], [place], [address] , [place]. tel:[phone] Referring Provider: Haim Garrison [address], [place], [place], [address]. tel:[phone] OFFICE/OUTPA TIENT VISIT, EST [facility], [address], [place], [place], [address], [place] tel:[phone] [facility] anxiety1 (chief complaint) chronic pain (chief complaint) Chronic pain syndromeThyroid nodule 6 Remigio Hernandez. [address], [place], [place], [address] , [place]. tel:[phone] Referring Provider: [address], [place], [place], [address]. tel:[phone] OFFICE/OUTPA TIENT VISIT, [facility], [address], [place], [place], [address], [place] tel:[phone] [facility] itchy (chief complaint) thyroid nodule (chief complaint) HLP (chief complaint) chronic pain (chief complaint) Chronic pain syndromeThyroid noduleRashHyperlipi demia 6 Remigio Hernandez. [address], [place], [place], [address] , [place]. tel:[phone] Referring Provider: [address], [place], [place], [address]. tel:[phone] OFFICE/OUTPA TIENT VISIT, [facility], [address], [place], [place], [address], [place] tel:[phone] [facility] chronic pain (chief complaint) thyroid nodule (chief complaint) tobacco1 (chief complaint) GERD1 (chief complaint) Chronic pain syndromeThyroid noduleBarrett's esophagus without dysplasiaBody mass index (BMI) 30.0-30.9, adult 6 Remigio Hernandez. [address], [place], [place], [address] , [place]. tel:[phone] Referring Provider: Haim Garrison [address], [place], [place], [address]. tel:[phone] OFFICE/OUTPA TIENT VISIT, [facility], [address] [place], [address], [place] tel:[phone] [facility] chronic pain (chief complaint) HLP (chief complaint) anxiety1 (chief complaint) tobacco (chief complaint) Chronic pain syndromeHyperlipide miaGeneralized Anxiety DisorderTobacco use 6 Remigio Hernandez. [address], [place], [place], [address] , . tel:[phone] Referring Provider: Haim Garrison [address], [place], [place], [address]. tel:[phone] OFFICE/OUTPA TIENT VISIT, [facility], [address], [place], [place], [address], [place] tel:[phone] [facility] chronic pain1 (chief complaint) tobacco (chief complaint) HLP (chief complaint) Hanson (chief complaint) Hanson's esophagus without dysplasiaHyperlipid emiaTobacco useChronic pain syndrome Sep-0 6 Remigio Hernandez. [address], [place], [place], [address] , [place]. [phone] Referring Provider: Haim Garrison [address], [place], [place], [address]. tel:[phone] OFFICE/OUTPA TIENT VISIT, [facility], [address], [place], [place], [address], [place] tel:[phone] [facility] HLP (chief complaint) chronic pain (chief complaint) GERD1 (chief complaint) HyperlipidemiaChron ic pain syndromeGERD w/o esophagitis 6 Remigio Hernandez. [address], [place], [place], [address] , [place]. [phone] Referring Provider: Haim Garrison [address], [place], [place], [address]. tel:[phone] OFFICE/OUTPA TIENT VISIT, [facility], [address], [place], [place], [address], [place] tel:[phone] [facility] chornic pain1 (chief complaint) HLP (chief complaint) tobacco1 (chief complaint) anxiety1 (chief complaint) Chronic pain syndromeHyperlipide miaTobacco useGeneralized Anxiety Disorder Apr- 6 Remigio Hernandez. [address], [place], [place], [address] , [place]. [phone] Referring Provider: Haim Garrison [address], [place], [place], [address]. tel:[phone] OFFICE/OUTPA TIENT VISIT, [facility], [address], [place], [place], [address], [place] [phone] [facility] hLP (chief complaint) low D (chief complaint) abd pain (chief complaint) chronic pain (chief complaint) HyperlipidemiaAbdom inal painGERD w/o esophagitisChronic pain syndrome Evearrdo- 6 Remigio Hernandez. [address], [place], [place], [address] , [place]. [phone] Referring Provider: Haim Garrison [address], [place], [place], [address]. tel:[phone] OFFICE/OUTPA TIENT VISIT, [facility], [address], [place], [place], [address], [place] tel:[phone] [facility] chronic pain (chief complaint) GERD1 (chief complaint) abd pain (chief complaint) GERD w/o esophagitisChronic pain syndromeOccult blood in stoolAbdominal pain February- 6 Remigio Hernandez. [address], [place], [place], [address] , [place]. [phone] Referring Provider: Haim Garrison [address], [place], [place], [address]. tel:[phone] PREV VISIT, NEW, AGE 40-64 [facility], [address], [place], [place], [address], [place] [phone] [facility] chronic pain (chief complaint) anxiety (chief complaint) Physical (chief complaint) Chronic pain syndromeEncounter for general adult medical exam w abnormal findingsGeneralized anxiety disorder Jan- 6 Remigio Hernandez. [address], [place], [place], [address] , [place]. tel:[phone] Referring Provider: Haim Garrison [address], [place], [place], [address]. tel:[phone] Family History Family Member Type Diagnosis Age At Onset Mother Problem (finding) renal Brother Problem (finding) Alive and well Mother Problem (finding) Father Problem (finding) Father Problem (finding) Coronary artery disease 45 Payers Payer name Insurance type Covered democrat ID Authoriza tion(s) No Information Social History Type Description Quantity Date Captured Comments Alcohol Use Details Unknown Caffeine Use Details Unknown Tobacco Use Status Smoking Status No Information Sex Male Chief Complaint And Reason For Visit No Information Plan Of Treatment Date Type Action Status Referral Ordered: US THYROID ordered Referral Ordered: COLONOSCOPY AND BIOPSY ordered Referral Ordered: CT ABDOMEN&PELVIS W/CONTRAST ordered History Of Present Illness Encounter Date Complaint History Of Prese nt Illness chronic pain1 Pt has chronic n marybeth and back pain. Pt told me he is not seeing pain management anymore since he failed all injections Pt is interested in neurostimulator and now. Pt has severel neck and back pain Pt denies any loss of blaldder control. Pt denies any radiculopathy. Pt has been having severe spasms. He told me pain management used to give him valium PRN for spasm HLP Pt has HLP. Pt t tracymichelle javy Pt denies any myalgia thyroid ndoule1 Pt had thyroid u ltrasound done which showed benign nodule chronic pain Pt has chronic n marybeth and back pain Pt is seeing neurology for injection and he takes daily norco for pain Pt states that his pain is not well controlled. Pt is not surgical candidate hanson Pt has hanson. Pt is on omeprzole. Pt denies any GERD or abd apin anxiety1 Pt has chronic a nxiety and depression. Pt takes effexor, buspar and risperdal.Pt sees psychiatrist. Pt has bipolar. Pt denies any suicidal or homicidal thought Pt denies any crying spells. pT sees psychiatrist chronic pain Pt has chronic n marybeth and back apin. Pt takes norco for pain and is getting injections. pt denies any worsening pain. Pt denies any loss of keagan or bladder control Pt has a lot of nerve pain and the nerve burning and injection is not helping itchy Pt states that h e had some poision IV or sumac last week. Pt has itchy rash all over body. Pt went to ER and was given steroid injection and also medrol dose maxime. Pt states that itchy got slightly better but keeps spreading and the rash has not gone away yet. Pt denie any itching around genital area or between fingers. PT staes that he has been itching all the time, worse at night. His has similar rash. Pt states that the bumps are not draining. Pt denies any exposure to iv or sumac thyroid nodule Risk factors for thyroid nodule include being 20 to 60 years of age. Risk factors for thyroid malignancy include male. Additional information: Pt has not done the thyroid ultrasound yet. HLP Pt has HLP. Pt t akes feno. Pt denies any myalgia chronic pain Pt has chronic n marybeth and back pain. PT denies any worsening pain PT denies any loss of bowel or bladder control chronic pain Pt has chronic n marybeth and back pain. Pt is seeing pain management for injection. Pt states that he still needs norco for pain throughout the day. Pt denies any worsening pain thyroid nodule Risk factors for thyroid nodule include being 20 to 60 years of age. Risk factors for thyroid malignancy include male. Additional information: Pt has thyroid nodule on recent cervical MRI. Pt denies any dysphagia. tobacco1 Pt still smokin about 4-5 per day now on the lozgens. GERD1 Pt takes omepraz ole and pepcid. Pt has hanson. Pt doing ok. Pt denies any abd pain or GERD with meds chronic pain Pt has chronic n marybeth and back apin Pt is seeing pain management and he just got some cervical nerve ablation recently. Pt has 7/10 pain daily. Pt denies any loss of bowel or bladder control. Pt denies any worsening pain HLP Pt has HLP. Pt h as high TG Pt takes feno. His TG is much better down to 200 from 500 .Pt denies any myalgia. Pt is on low fat and low carb diet anxiety1 Pt has chronic a nxiety and depression and bipolar pt takes effexor, risperdal and also trazodone. Pt sees psychiatrist. Pt denies any suicidal or homicidal thought. Pt denies any cyring spells tobacco Pt smokes about one 8-15 cig per day. His neurosurgery will not do back surgery until he completely quit smoking He told me patch gave him a local rash last time. chronic pain1 Pt has chronic n marybeth and back pain. pt is not seeing CPS and he is actually seeing neurology in [place] and is getting pain injection around his neck. Pt had both neck and low back surgery. Pt is seeing neurosurgery as well. Pt denies any wrosening pain. Pt has 7/10 pain on average and is sharp tobacco Pt continues to smoke tobacco. Pt failed patch HLP Pt has HLP. Pt t akes feno. Pt denies any myalgia. pt has not done lab yet Hanson Pt has hanson e sophagus and some hemorrhoid on recent endoscopy. Pt was told to continue omerpzole 40 mg and 40 mg zantac daily and will need repeat EGD in one year. pt denies any abd pain or GERd symptoms HLP Pt takes feno. P t denies any myalgia. pt is on low fat and low carb diet chronic pain Pt has chronic n marybeth and back pain. Pt takes norco for pain. Pt states that he set his quit smoking date to 06/25/16. Pt canot do surgery until he quit smoking GERD1 Pt had EGD done recently and was given omeprazole 40 mg and pepcid. Pt does not know what they found. Pt was told he has some erosion and did get biopsy and is waiting for result chornic pain1 Pt has chronic b ack and neck pain. Pt sees neurosurgery. Pt had history of neck and back surgery. Pt may need more surgery. Pt c/o sciatica and numnbess. Pt denies any loss of bowel or bladder control HLP Pt tolerating fe no ok. Pt is on low fat and low carb diet. Pt denies any myalgia tobacco1 Pt smokes about 1 ppd. Pt needs to quit smoking. Pt wants to try medication assistance anxiety1 Pt has chronic a nxiety and depression Pt takes effexor and risperdal and he sees psychiatrist Pt denies any suicidal or homcidialt hought hLP Pt has very high TG. Pt driks soda and eat a lot of sweet Pt is not very good on diet low D Pt has low D. Pt denies any histoiry of fx abd pain Pt has chronic v ague abd pain and GERD and also dark stool. Pt is on omeprazole. CT ok. Pt denies any acute symptoms chronic pain Pt has chronic n marybeth and back pain. Pt is on norco. Pt denies any worsening pain. Pt sees neurosurgery. pt has sciatica and leg numbness chronic pain Pt has chronic n marybeth and back pain. Pt c/o bilateral sciatica and leg numbness. Pt denies any radiculopathy. Pt is chroniclly opioid dependent, Pt is seeing pain management and is receiving injections but they will not give him pain medication? Pt is seeing [facility] pain management. Pt is taking norco for pain. Pt denies any other complaints GERD1 Pt has chronic G ERD and he has been on omeprazole for 10 years Pt has frequent breakthrough GERD. Pt has chornic diarrhea but no blood in stool. Pt did have history of dark color stool last year but not anymore. Pt denies any abd pain abd pain Pt c/o chronic l ow abdominal pain for one year. Pt has bilateral flank pain also .Pt c/o sharp and dull pain. Pt has pain constantly. Pt has 4/10 pain daily. chronic pain Pt has chrnoic n marybeth and back pain Pt had histoy of back and neck surgery. Pt states that he is seeing Dr. Grace who will do more back surgery for him. Pt c/o sciatica and numnbess both leg, worse on right side Pt denies any loss of bowel or bladder control. Pt was seeing doctor in [place] for pain management but was told to find new MD since his condition was too complicated for her?? Pt also has difficulty driving to [place], Pt takes up to 6 per day norco for pain anxiety Additional infor mation: Pt has chronic anxiety and depression and bipolar. Pt takes effexor, trazodone and risperdal. Pt denies any suicidal or homicidal thought Pt denies any suicidal or homcidial thought. Physical Pt needs annualk physical. Pt has chronic back and neck pain. Pt is chronically opioid dependent. Pt takes norco average 6 per day. Pt had history of neck and back surgery and is in the process of making appointment with Dr. Michelle for more gback surgery. Pt has chronic sciatica and leg numnbess Pt denies any other complaints Instructions Date Instruction Additional Infor mation Prescribed Activity and Exercise Education Related to Dietary Surveillance and Counseling Prescribed Diet Educ ation/Lifestyle Education Regarding Diet Related to Dietary Surveillance and Counseling Prescribed Activity and Exercise Education Related to Dietary Surveillance and Counseling Prescribed Diet Educ ation/Lifestyle Education Regarding Diet Related to Dietary Surveillance and Counseling Prescribed Activity and Exercise Education Related to Dietary Surveillance and Counseling Prescribed Diet Educ ation/Lifestyle Education Regarding Diet Related to Dietary Surveillance and Counseling Prescribed Activity and Exercise Education Related to Dietary Surveillance and Counseling Prescribed Diet Educ ation/Lifestyle Education Regarding Diet Related to Dietary Surveillance and Counseling Prescribed Activity and Exercise Education Related to Dietary Surveillance and Counseling Prescribed Diet Educ ation/Lifestyle Education Regarding Diet Related to Dietary Surveillance and Counseling Prescribed Activity and Exercise Education Related to Dietary Surveillance and Counseling Prescribed Diet Educ ation/Lifestyle Education Regarding Diet Related to Dietary Surveillance and Counseling Prescribed Activity and Exercise Education Related to Dietary Surveillance and Counseling Prescribed Diet Educ ation/Lifestyle Education Regarding Diet Related to Dietary Surveillance and Counseling Prescribed Activity and Exercise Education Related to Dietary Surveillance and Counseling Prescribed Diet Educ ation/Lifestyle Education Regarding Diet Related to Dietary Surveillance and Counseling Prescribed Activity and Exercise Education Related to Dietary Surveillance and Counseling Prescribed Diet Educ ation/Lifestyle Education Regarding Diet Related to Dietary Surveillance and Counseling Assessments Type Assessment Date No Information
--- NOTE | 2024-11-22 18:04 | ADMGEN ---
This patient, Sam Rosenthal, was admitted to Medical Room 249-01. Patient/family oriented to hospital policies and general routines including ID bracelet, bed and alarms, visiting hours, pain management, procedures, bathroom and other care routines, personal items, smoking policy, room service/diet, and visiting hours. Information on how to activate the Rapid Response Team has been discussed. Patient/Family are encouraged to report perceived risks to care and to ask questions if they do not understand what they are told or what they should do.
[2024-11-22 18:15] VITALS: BP 144/91; PULSE 93; RESP 18; TEMP 36.4; O2SAT 97
[2024-11-22 18:57] LABS: Hematocrit 42.9 % (42.0-52.0); Hemoglobin 14.3 g/dL (14.0-18.0); Mean Corpuscular HGB Conc 33.3 g/dl (32-36); Mean Corpuscular Hemoglobin 29.5 pg (26-34); Mean Corpuscular Volume 88.5 fl (80-100); Mean Platelet Volume 11.5 fl (7.4-10.4); Platelet Count Result 204 k/mm3 (150-375); Red Blood Count 4.85 M/mm3 (4.6-6.20); Red Cell Distribution Width 14.2 % (11.5-14.5); White Blood Count 7.1 K/mm3 (4.5-10.0)
[2024-11-22 19:07] LABS: Alanine Aminotransferase 16 U/L (6-50); Alkaline Phosphatase 113 U/L (38-126); Anion Gap 10 mmol/L (4-12); Aspartate Amino Transferase 23 U/L (17-59); Bilirubin,Total 0.4 mg/dL (0.2-1.3); Blood Urea Nitrogen 9 mg/dL (9-20); Calcium 9.5 mg/dL (8.4-10.2); Carbon Dioxide 26 mmol/L (22-30); Chloride 103 mmol/L (98-107); Estimated Glomerular Filt Rate > 60; Glucose 113 mg/dL (65-110); Potassium 3.8 mmol/L (3.4-5.0); Sodium 139 mmol/L (137-145)
[2024-11-22 20:00] VITALS: BP 150/82; PULSE 91; RESP 18; TEMP 36.6; O2SAT 99
[2024-11-22 20:05] VITALS: BMI 27.6
[2024-11-22] MEDS: PIPERACILLN/TAZ 3.375GM/NS50ML 3.375 GM/50 ML BAG IVPB (22:12)
[2024-11-22] MEDS: ESCITALOPRAM OXALATE 10 MG TABLET 20 MG PO (22:14)
[2024-11-22] MEDS: allopurinoL 100 MG TABLET PO (22:14)
[2024-11-22] MEDS: PANTOPRAZOLE 40 MG TABLET PO (22:14)
[2024-11-22] MEDS: buPROPion HCL XL (24 HR) 150 MG TABCR PO (22:14)
[2024-11-22] MEDS: CHOLECALCIFEROL 1,000 UNITS TABLET 1000 UNITS PO (22:14)
[2024-11-22] MEDS: metroNIDAZOLE 500 MG/ISO 100ML 500 MG/100 ML BAG 100 MG IVPB (22:46)
[2024-11-22 23:34] VITALS: BP 131/92; PULSE 88; RESP 17; TEMP 36.7; O2SAT 96
[2024-11-23] MEDS: PIPERACILLN/TAZ 3.375GM/NS50ML 3.375 GM/50 ML BAG IVPB ×4 (02:59→20:04)
[2024-11-23] MEDS: LACTATED RINGERS 1,000 ML 100 ML IV CONT (03:00)
[2024-11-23 03:34] VITALS: BP 140/88; PULSE 78; RESP 17; TEMP 36.6; O2SAT 98
[2024-11-23] MEDS: metroNIDAZOLE 500 MG/ISO 100ML 500 MG/100 ML BAG 100 MG IVPB ×3 (05:44→21:14)
[2024-11-23 08:00] VITALS: BP 129/64; PULSE 74; RESP 15; TEMP 36.5; O2SAT 96
--- OUTSIDE RECORDS SUMMARY | 2024-11-23 09:19 | XMS_ITS ---
Author Organization [facility] Address [facility] [address] [facility] [address] [place] [address] Care Team Providers Care Certified Green Building Engineer Name Role Phone Viridiana, Jovana Unavailable [phone] REASON FOR VISIT THIS NO SHOW IS ACCURATE, NO CALLS OR MESSAGES WERE RECEIVED TO CANCEL OR R/S Social History Sex Assigned At : Social History Observation Description Sex Assigned At Male Encounters Encounter Location Date Provider Diagnosis [facility] [employer] [place] [address] [address] [facility] [address] [address] 11/16/2024 Jovana Kemp Plan Of Treatment No Information Progress Notes * ENZO ORNELASDOB: 4 (49 yo M)Acc No.[id number]:11/16/2024 Patient:?ENZO ORNELAS Provider:?JIMY HENRY :1975???Age:49 Y???Sex:Male Ryan e:11/16/2024 Phone: Address:[address] [place] [id number] Subjective: * Chief Complaints: * ???1. THIS NO SHOW IS ACCURA TE, NO CALLS OR MESSAGES WERE RECEIVED TO CANCEL OR R/S. * Medical History:? Objective: * Vitals:? Assessment: Plan: * Treatment: * Procedure Codes:?NS NO SHOW * Billing Information: * Visit Code:? * Procedure Codes:? NS NO SHOW. * INE LOAD CLERK Sign off status: Completed true * Provider:?JIMY HENRY Date:? Generated for Reggie lowe/Aisha/Velvet on:?11/23/2024 09:19 AM MACHINE LOAD CLERK
--- OUTSIDE RECORDS SUMMARY | 2024-11-23 09:19 | XMS_ITS ---
Author Organization [facility] [email or web address] [facility] Address [facility] [facility] [address] [place] [address] Care Team Providers Care Binitrotoluene Operator Name Role Phone Jovana Kemp [phone] REASON FOR VISIT Therapy Appt Social History Sex Assigned At : Social History Observation Description Sex Assigned At Male Encounters Encounter Location Date Provider Diagnosis [facility] [employer] [place] [address] [address] [address] 10/13/2024 Jovana Kemp Plan Of Treatment No Information Progress Notes * ORNELAS, JASHANTELLDOB: [birth year] (49 yo M)Acc No.[id number]:10/13/2024 Patient:?ENZO ORNELAS :1975???Age:49 Y???Sex:Male Phone: Address:[address] [place] [address], [phone] * true * Date:? Generated for Reggie lowe/Aisha/eTransmitting on:?11/23/2024 09:19 AM BELLSTAFF
--- OUTSIDE RECORDS SUMMARY | 2024-11-23 09:19 | XMS_ITS ---
Author Organization [facility] Address [address] [place] [address] Care Team Providers Care Cylinder Press Operator Name Role Phone Barby Guerra Primary Care Provider [phone] Allergies No Known Allergies REASON FOR VISIT Follow up Medications Medication SIG (Take, Route, Frequency, Duration) Notes Start Date End Date Status Omeprazole 40 MG 1 capsule 30 minutes before morning meal Orally Once a day Active Cyclobenzaprine HCl 10 MG 1 tablet at be dtime as needed Orally Once a day for 30 day(s) Active oxyCODONE HCl 15 MG 1 tablet Orally ever y 6 hrs Active Xanax 0.5 MG 1 tablet Orally Twic e a day Active Social History Sex Assigned At : Social History Observation Description Sex Assigned At Male Section Notes: PRESCRIPTION # FILLED WRITTEN DRUG LABEL QTY DAYS STRENGTH [facility] REFILL NO. REFILLS STATE 06/03/2023 06/03/2023 ALPRAZolam 60.0 30 0.5 MG Nehemiah King Md - [id number] [place], [place] NA 0 [place] 1 [id number] 05/24/2023 05/24/2023 oxyCODONE HCL 112.0 28 15 MG 90 Carly Rushing [id number] [place], [place] NA 0 [place] 1 [id number] 05/24/2023 05/24/2023 Cyclobenzaprine Hcl 56.0 28 10 MG NA Carly Rushing [id number] [place] Vital Signs Height 65.5 in 06/21/2023 Denies any physical symptoms ; unable to obtain vital signs due to telephone encounter Encounters Encounter Location Date Provider Diagnosis [facility] [place] [address] 06/21/2023 Barby Guerra Nicotine dependence, unspecified, uncomplicated F17.200 ; Mood disorder F39 and Medication monitoring encounter Z51.81 Assessments Encounter Date Diagnosis (ICD Code) Assessment Notes Treatment Notes Treatment Clinical Notes Section Notes 06/21/2023 Nicotine dependence, unspecified, uncomplicated (ICD-10 - F17.200) 06/21/2023 Mood disorder (ICD-10 - F39) Pt discontinued lamotrigine without notifying this provider. Xanax per PCP. Pt is in therapy. Benzodiazepines are not recommended for long-term use due to potent and dangerous side effects that include increased drowsiness, memory impairment, increased irritability, mood changes, and worsening of PTSD symptoms. Benzodiazepines increase respiratory depression which can aggravate conditions such as sleep apnea and COPD leading to possible . They should also never be combined with alcohol, pain medications (especially opioids), or street drugs because this can lead to overdose and possible . If you are under the influence of benzodiazepines while operating a motor vehicle and are involved in a car accident you can be charged with driving while intoxicated. Benzodiazepine use increases unsteady gait thereby increasing the risk of falls, broken bones, and concussions. Benzodiazepine use is intended for short-term use, up to 3 weeks at most. Long-term use of benzos can lead to dependence, rebound anxiety/agitation, and withdrawal symptoms that include sleep disturbance, irritability, increased tension and anxiety, panic attacks, hand tremor, sweating, difficulty in concentration, dry retching, and nausea, some weight loss, palpitations, headache, muscular pain and stiffness, and a host of perceptual changes. 06/21/2023 Medication monitoring encounter (ICD-10 - Z51.81) 06/21/2023 Other Patient was educated on diagnosis and symptoms. Discussed the treatment plan, patient is agreeable and accepting of treatment plan. Patient denies further questions or concerns currently. Discussed sleep hygiene and caffeine intake. Encouraged to improve diet, get regular exercise, daily relaxation, and work on managing stress levels. Return to clinic 4 weeks. Labs are up to date. Continue with counseling. The Patient/Guardian is aware of the need to contact the office or return for an earlier appointment if any problems or concerns arise. May also contact the 24-hour crisis hotline (R), refer to the closest emergency room or call 911 if new symptoms arise of existing symptoms worsen; the Patient/Guardian is aware that this would apply to symptoms such as: suicidal ideation, homicidal ideation, high risk behaviors, manic symptoms, psychotic symptoms, physical symptoms, or any other symptoms that may be dangerous to self or others. Greater than 50% of time spent on coordination and counseling where psychopharmacology as well as psychotherapeutic interventions were discussed along with review of treatments in the past. Patient/Guardian was educated about treatments including benefits and risks, alternatives, potential medication side effects, black box warning, and risks of failure if not treated. The Patient/Guardian asked appropriate questions, appeared to understand the answers, and decided to accept the treatment and continue being followed. Discussed the importance of compliance with medications due to the risk of relapse of symptoms. Discussed the risks of taking psychotropic medication when combined with substance use/abuse and/or drinking alcohol. Plan Of Treatment Treatment Notes Assessment Notes Mood disorder Pt discontinued lamotrigine without notifying this provider. Xanax per PCP. Pt is in therapy. Benzodiazepines are not recommended for long-term use due to potent and dangerous side effects that include increased drowsiness, memory impairment, increased irritability, mood changes, and worsening of PTSD symptoms. Benzodiazepines increase respiratory depression which can aggravate conditions such as sleep apnea and COPD leading to possible . They should also never be combined with alcohol, pain medications (especially opioids), or street drugs because this can lead to overdose and possible . If you are under the influence of benzodiazepines while operating a motor vehicle and are involved in a car accident you can be charged with driving while intoxicated. Benzodiazepine use increases unsteady gait thereby increasing the risk of falls, broken bones, and concussions. Benzodiazepine use is intended for short-term use, up to 3 weeks at most. Long-term use of benzos can lead to dependence, rebound anxiety/agitation, and withdrawal symptoms that include sleep disturbance, irritability, increased tension and anxiety, panic attacks, hand tremor, sweating, difficulty in concentration, dry retching, and nausea, some weight loss, palpitations, headache, muscular pain and stiffness, and a host of perceptual changes. Other Patient was educated on diagnosis and symptoms. Discussed the treatment plan, patient is agreeable and accepting of treatment plan. Patient denies further questions or concerns currently. Discussed sleep hygiene and caffeine intake. Encouraged to improve diet, get regular exercise, daily relaxation, and work on managing stress levels. Return to clinic 4 weeks. Labs are up to date. Continue with counseling. The Patient/Guardian is aware of the need to contact the office or return for an earlier appointment if any problems or concerns arise. May also contact the 24-hour crisis hotline (R), refer to the closest emergency room or call 911 if new symptoms arise of existing symptoms worsen; the Patient/Guardian is aware that this would apply to symptoms such as: suicidal ideation, homicidal ideation, high risk behaviors, manic symptoms, psychotic symptoms, physical symptoms, or any other symptoms that may be dangerous to self or others. Greater than 50% of time spent on coordination and counseling where psychopharmacology as well as psychotherapeutic interventions were discussed along with review of treatments in the past. Patient/Guardian was educated about treatments including benefits and risks, alternatives, potential medication side effects, black box warning, and risks of failure if not treated. The Patient/Guardian asked appropriate questions, appeared to understand the answers, and decided to accept the treatment and continue being followed. Discussed the importance of compliance with medications due to the risk of relapse of symptoms. Discussed the risks of taking psychotropic medication when combined with substance use/abuse and/or drinking alcohol. Next Appt Details Follow Up: 4 Weeks, Reason: psych follow up in office,Psychiatric Follow Up - Medication Check Progress Notes * Sam ORNELASDOB: [birth year] (47 yo M)Acc No.[id number]:06/21/2023 Patient:?Sam Ornelas Provider:?ANGEL LUIS Berger :1975???Age:47 Y???Sex:Male Ryan e:06/21/2023 Address:[address], [facility] Subjective: * Chief Complaints: * ???Follow up * HPI: ???Depression Screening:?PHQ-9?Little interest or pleasure in doing things?Several days,?Feeling down, depressed, or hopeless?Several days,?Trouble falling or staying asleep, or sleeping too much?Several days,?Feeling tired or having little energy?Several days,?Poor appetite or overeating?Several days,?Feeling bad about yourself or that you are a failure, or have let yourself or your family down?Not at all,?Trouble concentrating on things, such as reading the newspaper or watching television?Several days,?Moving or speaking so slowly that other people could have noticed; or the opposite, being so fidgety or restless that you have been moving around a lot more than usual?Not at all,?Thoughts that you would be better off or of hurting yourself in some way?Not at all,?Total Score 6,?Interpretation?Mild Depression.?Intervention?Depression Screening Findings?Positive,?Follow-Up for Depression?No Referral necessary, patient involved in behavioral health treatment ..? This session was completed telephonically due to COVID-19 emergency, with client/parental/guardian consent. ???Screening:?[place] Suicide Severity Rating Scale (LF)?Do you want to initiate with?Screener form,?1. Wish to be : Have you wished you were or wished you could go to sleep and not wake up??No,?2. Suicidal Thoughts: Have you actually had any thoughts of killing yourself??No,?6. Suicide Behaviour: Have you ever done anything,started to do anything, or prepared to end your life??No,?Interpretation:?Low Risk.?Constitutional:? Chief Complaint: ?Medication Management ?HPI: Sam is a 47 y/o male that presents by telephone for management of his mood disorder. He was last seen on 05/05/23 at which time we started Lamotrigine. He stopped lamotrigine. I didn't feel nothing. I don't need it. He continues to take Xanax prescribed by his PCP. Discussed longterm use of BZD use and only to use if SEVERE anxiety. Also discussed risks of BZD use with opioids prescribed by pain management. Also discussed daily marijuana use can exacerbate his symptoms. He feels his energy is better, he is not as drowsy. He still has some irritability with some mood swings. He is in therapy with Rosemary and he feels it has been beneficial for him. He is trying to take bike rides to cope. 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 He got injections in his hands and left shoulder. He hopes to get a left shoulder replacement by next Halloween. He has been working out and maintaining weight. He has been walking at least 2 miles a day. Only experiencing anxiety in large crowds. He denies any SIB/SI/HI. He does have auditory hallucinations only if in a quiet room (crickets or background music). If he runs a fan at night, it helps. ?PHQ-9 on 05/05/23 was 16. Today's PHQ-9 is 6. ?Previous Diagnosis: Schizoaffective, Bipolar Disorder ?Goals: I am trying to get healthy. I am cutting back on smoking. ?Coping strategies: Walks about 2 miles a day, enjoys listening to music ?Social Activities/Hobbies: On disability, Likes to explore outdoors, trail riding, going to the gym every day to every other day; Socializing with his children ?Drugs/ETOH/nicotine: Marijuana use, Tobacco use, Rare ETOH ?Therapy: She is in therapy with Joan. ?Medications effective: Yes ?Medication Adherence: No ?Side effects: Sedation with Seroquel ?Past medications: Risperdal (made him feel funny), Seroquel, Vistaril (ineffective), Propranolol (ineffective) ?Sleep: It is hit or miss. ?Appetite: Appetite is normal. ?Depression: 6-710 ?Anxiety/Panic attacks: 6-05/03 ?Anger/Irritability: Irritability and some mood swings ?Hallucinations/Paranoia: Hears crickets and music in the [place] in a quiet room ?Current Suicidal ideation: Denies ?Past suicidal ideation: Denies ?Homicidal ideation: Denies ?Medical concerns: Left shoulder, Chronic neck/backs issues. ?Sees Dr. Godwin is pain management. ?PCP-Dr. Ulloa ?Hospitalizations/medication changes by other providers: Denies ?Support system: Girlfriend Lexi, Daughter Sasha ?Labs: Disclosure signed at last visit. ???CSSRS Interpretation and Follow Up Plan:? CSSRS Interpretation and Follow Up Plan. ?CSSRS Interpretation and Follow Up Plan?CSSRS Screen documented using SF?Yes,?Moderate or High risk requires selection of a follow up plan?CSSRS No/Low: intervention not needed at this time.? * ROS:?Psych ROS:?Constitutional?Denies.?Respiratory?Denies.?Cardiovascular?Denies.?GI?Denies .?Musculoskeletal?Reports,?back pain , joint pain , chronic pain.?Psychiatric:?Admits?anger.?Admits?mood swings.?Thoughts of self harm?Denies.?Denies?Homicidal thoughts.?Paranoia?Denies.?sleeping more than usual?Admits.?Admits?Anxiety.?Admits?Auditory/visual hallucinations,?auditory.?Denies?Delusions.?Admits?Depressed mood.?Loss of appetite?Admits.?Admits?Substance abuse,?marijuana.?Denies?Suicidal thoughts.? * Medical History:? * Surgical History:?cervical f usion houlder replacement, Left 1990shoulder replacement, Left 2019 * Hospitalization/Major Diagno stic Procedure:?No Hospitalization History. * Family History:?Father: unkn own.?Mother: , diagnosed with Bipolar disorder, unspecified.?Siblings: alive, diagnosed with Bipolar disorder, unspecified.?2 brother(s) . 2 daughter(s) . .? * Social History:?Primary Social History:?Living Arrangement?Living Arrangement:?Dependent Living,?Living with:?Other:,?Is this a supportive environment??Yes.?Alcohol Use?Alcohol Use Frequency: Monthly or less.?Illicit Substance Usage?Illicit Substance Usage:?Yes,?Substance Used:?Cannabis,?Frequency Cannabis is used:? daily,?Interested in quitting:?No.?Employment Status?Employment Status:?On Disability.?PRESCRIPTION # FILLED WRITTEN DRUG LABEL QTY DAYS STRENGTH [facility] REFILL NO. REFILLS STATE 06/03/2023 06/03/2023 ALPRAZolam 60.0 30 0.5 MG Nehemiah King Md [id number] [place], [place] NA 0 [place] 1 [id number] 05/24/2023 05/24/2023 oxyCODONE HCL 112.0 28 15 MG 90 Carly Rushing [id number] [place], [place] NA 0 [place] 1 [id number] 05/24/2023 05/24/2023 Cyclobenzaprine Hcl 56.0 28 10 MG Carly Boyle [id number] [facility]. * Medications:?TakingOmeprazol e 40 MG Capsule Delayed Release 1 capsule 30 minutes before morning meal Orally Once a dayoxyCODONE HCl 15 MG Tablet 1 tablet Orally every 6 hrsXanax 0.5 MG Tablet 1 tablet Orally Twice a dayCyclobenzaprine HCl 10 MG Tablet 1 tablet at bedtime as needed Orally Once a dayTaking Omeprazole 40 MG Capsule Delayed Release 1 capsule 30 minutes before morning meal Orally Once a dayTaking oxyCODONE HCl 15 MG Tablet 1 tablet Orally every 6 hrsTaking Xanax 0.5 MG Tablet 1 tablet Orally Twice a dayTaking Cyclobenzaprine HCl 10 MG Tablet 1 tablet at bedtime as needed Orally Once a dayDiscontinuedlamoTRIgine 25 MG Tablet TAKE 1 TABLET BY MOUTH DAILY FOR 2 WEEKS, THEN 2 TABLETS DAILY FOR 2 WEEKS Medication List reviewed and reconciled with the patientDiscontinued lamoTRIgine 25 MG Tablet TAKE 1 TABLET BY MOUTH DAILY FOR 2 WEEKS, THEN 2 TABLETS DAILY FOR 2 WEEKS Medication List reviewed and reconciled with the patient * Allergies:?N.K.D.A.no[Allerg ies Verified] Objective: * Vitals:?Initials: CLS, Ht: 6 5.5, Pain scale:3, Ht-cm: 166.37 Denies any physical symptoms; unable to obtain vital signs due to telephone encounter. * Examination: ???General Examination: ?PSYCH:?full range of affect/positive mood, speech clear , no auditory or visual hallucinations , thought content without suicidal ideation or delusions , alert, oriented x4 , thought process logical, goal directed, denies any current thoughts/plans of suidicial/homicidal ideation?.?Mental Status Exam?.? Assessment: * Assessment: 1.?Nicotine dependence, unsp ecified, uncomplicated - F17.200?2.?Mood disorder - F39?3.?Medication monitoring encounter - Z51.81? Plan: * Treatment: 2.?Others? Notes:Patient waseducated on diagnosis and symptoms.Discussed the treatment plan, patient is agreeable and accepting oftreatment plan. Patient denies further questions or concerns currently. Discussedsleep hygiene and caffeine intake. Encouraged to improve diet, get regularexercise, daily relaxation, and work on managing stress levels. Return toclinic 4 weeks. Labs are up to date. Continue with counseling. The Patient/Guardian is aware of theneed to contact the office or return for an earlier appointment if any problemsor concerns arise. May also contact the 24-hour crisis hotline ([facility]), refer [facility] emergency room or call 911 if new symptoms arise of existingsymptoms worsen; the Patient/Guardian is aware that this would apply tosymptoms such as: suicidal ideation, homicidal ideation, high risk behaviors,manic symptoms, psychotic symptoms, physical symptoms, or any other symptomsthat may be dangerous to self or others. Greater than 50% of time spent oncoordination and counseling where psychopharmacology as well aspsychotherapeutic interventions were discussed along with review of treatmentsin the past. Patient/Guardian was educated abouttreatments including benefits and risks, alternatives, potential medicationside effects, black box warning, and risks of failure if not treated.The Patient/Guardian askedappropriate questions, appeared to understand the answers, and decided toaccept the treatment and continue being followed. Discussed the importance ofcompliance with medications due to the risk of relapse of symptoms. Discussed the risks of takingpsychotropic medication when combined with substance use/abuse and/or drinkingalcohol..?? * Procedure Codes:? * Follow Up:?4 Weeks (Reason: psych follow up in office,Psychiatric Follow Up - Medication Check) * * Sign off status: Completed true * Provider:?ANGEL LUIS Berger Date:? Generated for Reggie lowe/Aisha/Velvet on:?11/23/2024 09:19 AM DISEASE INTERVENTION SPECIALIST History and Physical Notes * HPI (History of Present Illness) Category Sub-Category Detail Notes Category Not es Depression Screening PHQ-9 Little inte rest or pleasure in doing things: Several days This session was completed telephonically due to COVID-19 emergency, with client/parental/guardian consent. Feeling down, depressed, or hopeless: Se veral days Trouble falling or staying asleep, or sl eeping too much: Several days Feeling tired or having little energy: S everal days Poor appetite or overeating: Several day s Feeling bad about yourself o r that you are a failure, or have let yourself or your family down: Not at all Trouble concentrating on thi ngs, such as reading the newspaper or watching television: Several days Moving or speaking so slowly that other people could have noticed; or the opposite, being so fidgety or restless that you have been moving around a lot more than usual: Not at all Thoughts that you would be b malachi off or of hurting yourself in some way: Not at all Total Score: 6 Interpretation: Mild Depression Intervention Depression Screening Findings: P ositive Follow-Up for Depression: No Referral necessary, patient involved in behavioral health treatment . Constitutional Chief Complaint: Medication Management HPI: Sam is a 47 y/o male that presents by telephone for management of his mood disorder. He was last seen on 05/05/23 at which time we started Lamotrigine. He stopped lamotrigine. I didn't feel nothing. I don't need it. He continues to take Xanax prescribed by his PCP. Discussed longterm use of BZD use and only to use if SEVERE anxiety. Also discussed risks of BZD use with opioids prescribed by pain management. Also discussed daily marijuana use can exacerbate his symptoms. He feels his energy is better, he is not as drowsy. He still has some irritability with some mood swings. He is in therapy with Rosemary and he feels it has been beneficial for him. He is trying to take bike rides to cope. 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 He got injections in his hands and left shoulder. He hopes to get a left shoulder replacement by next Halloween. He has been working out and maintaining weight. He has been walking at least 2 miles a day. Only experiencing anxiety in large crowds. He denies any SIB/SI/HI. He does have auditory hallucinations only if in a quiet room (crickets or background music). If he runs a fan at night, it helps. PHQ-9 on 05/05/23 was 16. Today's PHQ-9 is 6. Previous Diagnosis: Schizoaffective, Bipolar Disorder Goals: I am trying to get healthy. I am cutting back on smoking. Coping strategies: Walks about 2 miles a day, enjoys listening to music Social Activities/Hobbies: On disability, Likes to explore outdoors, trail riding, going to the gym every day to every other day; Socializing with his children Drugs/ETOH/nicotine: Marijuana use, Tobacco use, Rare ETOH Therapy: She is in therapy with Joan. Medications effective: Yes Medication Adherence: No Side effects: Sedation with Seroquel Past medications: Risperdal (made him feel funny), Seroquel, Vistaril (ineffective), Propranolol (ineffective) Sleep: It is hit or miss. Appetite: Appetite is normal. Depression: 6-05/03 Anxiety/Panic attacks: 6-05/03 Anger/Irritability: Irritability and some mood swings Hallucinations/Paranoia: Hears crickets and music in the [place] in a quiet room Current Suicidal ideation: Denies Past suicidal ideation: Denies Homicidal ideation: Denies Medical concerns: Left shoulder, Chronic neck/backs issues. Sees Dr. Godwin is pain management. PCP-Dr. Ulloa Hospitalizations/medication changes by other providers: Denies Support system: Girlfriend Lexi, Daughter Sasha Labs: Disclosure signed at last visit Screening [place] Suicide Severity Rating Scale (LF) Do you want to initiate with: Screener form ?1. Wish to be : Have yo u wished you were or wished you could go to sleep and not wake up?: No ?2. Suicidal Thoughts: Have you actually had any thoughts of killing yourself?: No ?6. Suicide Behaviour: Have you ever done anything,started to do anything, or prepared to end your life?: No ?Interpretation:: Low Risk Do Not Use CSSRS Interpretation and Follow Up Plan CSSRS Interpretation and Follow Up Plan CSSRS Screen documented using SF: Yes Moderate or High risk requir es selection of a follow up plan: CSSRS No/Low: intervention not needed at this time Examination Category Sub-Category Detail Notes Category Not es General Examination PSYCH: full range o f affect/positive mood, speech clear , no auditory or visual hallucinations , thought content without suicidal ideation or delusions , alert, oriented x4 , thought process logical, goal directed, denies any current thoughts/plans of suidicial/homicidal ideation Mental Status Exam Protective Factors: Children, Coping Skills, Denies Intent/Desire/Means
--- OUTSIDE RECORDS SUMMARY | 2024-11-23 09:20 | XMS_ITS ---
Author Organization [facility] Address [facility] [facility] [address] [place] [address] Care Team Providers Care Red Lead Burner Name Role Phone Jovana Kemp [phone] Social History Sex Assigned At : Social History Observation Description Sex Assigned At Male Encounters Encounter Location Date Provider Diagnosis [facility] [address] [phone] 10/05/2024 Jovana Kemp Plan Of Treatment No Information Progress Notes * JANE ORNELASSHANTELLDOB: [birth year] (49 yo M)Acc No.[id number]:10/05/2024 Patient:?ENZO ORNELAS Provider:?JIMY HENRY :1975???Age:49 Y???Sex:Male Ryan e:10/05/2024 Phone: Address:[address] [place] [phone] Subjective: * Chief Complaints: * ??? * Medical History:? Objective: * Vitals:? Assessment: Plan: * Treatment: * Procedure Codes:?NS NO SHOW * Billing Information: * Visit Code:? * Procedure Codes:? NS NO SHOW. * R BISCUIT Sign off status: Completed true * Provider:?JIMY HENRY Date:?09/2024 Generated for Reggie lowe/Aisha/eTransmitting on:?11/23/2024 09:20 AM BAKER BISCUIT
--- OUTSIDE RECORDS SUMMARY | 2024-11-23 09:20 | XMS_ITS | Clinical Summary ---
Author Organization [facility] Address [id number] [place] [phone] Care Team Providers Care Sawing And Assembly Supervisor Name Role Phone Nehemiah Ulloa MD Primary Care Provider [phone] Allergies Active Allergy Reactions Criticality Noted Date [...] (07/10/2022): Added automatically from request for surgery [id number] Instability of left shoulder joint 02/09/2022 Overview (02/09/2022): Added automatically from request for surgery [id number] Nontraumatic complete tear of left rotator cuff 02/09/2022 Overview (02/09/2022): Added automatically from request for surgery [id number] Cervical facet syndrome 06/19/2016 Cervical vertebral fusion [...] Department Care Team Description 11/16/2024 9:00 AM POT MAKER Office Visit [facility] [address] [place] [phone] Cristobal Lowe MD Acute pain of right shoulder (Primary Dx); Smoker; Nontraumatic complete tear of right rotator cuff 11/05/2024 9:38 PM POT MAKER - 11/05/2024 10:28 PM POT MAKER Emergency [facility] Emergency Department [address] [place] [address] Zeus Brink MD Acute pain of right shoulder (Primary Dx); Acute left ankle pain; Anal pain Discharge Disposition: Discharge to home or self care 10/31/2024 Telephone [facility] [address] [place] [phone] Cristobal Lowe MD sooner appointment 09/27/2024 2:05 PM POT MAKER - 09/27/2024 11:59 PM POT MAKER Hospital Encounter [facility] ([facility]) [address] [place] [phone] Acute pain of right shoulder Discharge Disposition: Discharge to home or self care 09/05/2024 1:07 PM POT MAKER - 09/05/2024 4:24 PM POT MAKER Emergency [facility] Emergency Department [address] [place] [address] Osvaldo Voss MD Suicidal ideation (Primary Dx) Discharge Disposition: Discharge to home or self care 09/05/2024 12:37 PM POT MAKER - 09/05/2024 11:59 PM POT MAKER Hospital Encounter [facility] Emergency, Room R Discharge Disposition: Discharge to home or self care 08/28/2024 9:15 AM POT MAKER Office Visit [facility]oped[facility] Medicine [address] [place] [address] [place] [phone] Talia Lubin PA Acute pain of right shoulder (Primary Dx) 08/28/2024 9:05 AM POT MAKER - 08/28/2024 11:59 PM POT MAKER Hospital Encounter [facility] [address] [place] [phone] Acute pain of right shoulder Discharge Disposition: [...] on file Legal Sex Male 10:12 AM POT MAKER Gender Identity Not on file Sexual Orientation Not on file Obstetrics History Last Filed Vital Signs Vital Sign Reading Time Taken Comments Blood Pressure 141/77 11/05/2024 9:37 PM POT MAKER Pulse 84 11/05/2024 9:37 PM POT MAKER Temperature 36.9 ??C (98.5 ??F) 11/05/2024 9:37 PM CS T Respiratory Rate 20 11/05/2024 9:37 PM POT MAKER Oxygen Saturation 100% 11/05/2024 9:37 PM POT MAKER Inhaled Oxygen Concentration - - Weight 76.2 kg (168 lb) 11/16/2024 9:10 AM POT MAKER Height 167.6 cm (5' 6 ) 11/16/2024 9:10 AM POT MAKER Body Mass Index 27.12 11/16/2024 9:10 AM POT MAKER Plan of Treatment Health Maintenance Due Date [...] 2) 2024 Medical Devices Implanted Type Area Log Sawyer Device Identifier Shelf Expiration Date Model / Serial / Lot Cervical Spine Fusion Instrumentation Spine Cervical Lt Shoulder Bicept And Cuff Reattachment Anchors Left: Shoulder DepEdictive Spine Symphony 4mm Spine Occipitocervicothoracic Short Lateral Offset [id number] - [id number] Implanted:Qty: 1 on 08/24/2022 by Monico Ramon MD at [facility] N/A: Spine Cervical Depuy Synthes Spine [id number] / / Depuy Synthes Spine 3.5mm 14mm Ply Spine Screw Bone Nonsterile 4mm Kenny [id number] - [id number] Implanted:Qty: 7 on 08/24/2022 by Monico Ramon MD at [facility] N/A: Spine Cervical Depuy Synthes Spine [id number] / / Depuy Synthes Spine 4mm 240mm Straight Kenny Spinal Titanium [id number] - [id number] Implanted:Qty: 2 on 08/24/2022 by Monico Ramon MD at [facility] N/A: Spine Cervical Depuy Synthes Spine [id number] / / Depuy Synthes Spine 4.5mm 26mm Ply Spine Pedicle Screw Bone Nonsterile 4mm Kenny [id number] - [id number] Implanted:Qty: 3 on 08/24/2022 by Monico Ramon MD at [facility] N/A: Spine Cervical Depuy Synthes Spine [id number] / / Depuy Synthes Spine [id number] Set Screw - [id number] Implanted:Qty: 14 on 08/24/2022 by Monico Ramon MD at [facility] N/A: Spine Cervical Depuy Synthes Spine [id number] / / Depuy Synthes Spine 5.5mm 30mm Ply Spine Pedicle Screw Bone Nonsterile 4mm Kenny [id number] - [id number] Implanted:Qty: 4 on 08/24/2022 by Monico Ramon MD at [facility] N/A: Spine Cervical Depuy Synthes Spine [id number] / / Med[employer] Bmp Infuse Sm [id number] - [id number] Implanted:Qty: 1 on 08/24/2022 by Monico Ramon MD at [facility] N/A: Spine Cervical Medtronic Inc 10/25/2024 [id number] / / [id number] Allosource 1-4mm Freeze Dried Crushed Graft 30ml Bone Cancellous [id number] - [id number] Implanted:Qty: 1 on 08/24/2022 by Monico Ramon MD at [facility] N/A: Spine Cervical Allosource 08/03/2026 [id number] / / [id number] Procedures Procedure Name Priority Date/Time Associated Diagnosis Comments MRI SHOULDER RIGHT WO CONTRAST Schedule Routine, Read Routine (OP Routine) 09/27/2024 2:50 PM POT MAKER Acute pain of right shoulder EGFR STAT 09/05/2024 1:28 PM POT MAKER DIFFERENTIAL AUTO STAT 09/05/2024 1:2 8 PM POT MAKER ETHANOL STAT 09/05/2024 1:28 PM POT MAKER THYROID FUNCTION CASCADE STAT 09/05/2024 1:28 PM POT MAKER COMPREHENSIVE METABOLIC PANEL STAT 09/05/2024 1:28 PM POT MAKER CBC WITH AUTO DIFFERENTIAL STAT 09/05/2024 1:28 PM POT MAKER COVID-19 CORONAVIRUS RNA Routine 09/05/2024 1:28 PM POT MAKER DRUGS OF ABUSE SCREEN, URINE WITHOUT CONFIRMATION STAT 09/05/2024 1:22 PM POT MAKER URINALYSIS AND REFLEX TO MICROSCOPIC AND CULTURE STAT 09/05/2024 1:22 PM POT MAKER XR SHOULDER RIGHT 2 OR MORE VIEWS Schedule Routine, Read Routine (OP Routine) 08/28/2024 9:30 AM POT MAKER Acute pain of right shoulder from Last 3 Months Results * MRI Shoulder Right WO Contrast (09/27/2024 2:50 PM POT MAKER) Anatomical Region Laterality Modality Upper Extremities Right Magnetic Reson ance 09/27/2024 3:58 PM POT MAKER Impressions 09/27/2024 4:06 PM POT MAKER 1. Right rotator cuff tendinopathy with massive, [...] Avni Rivers M.D. Narrative 09/27/2024 4:06 PM POT MAKER EXAMINATION: 1. MRI right shoulder without contrast [...] signed by: Avni Rivers M.D. [place]ED[place] Final Result * COVID-19 Coronavirus RNA Nasopharyngeal (09/05/2024 1:28 PM POT MAKER) COVID-19 RNA Negative Negative Nasopharyngeal 09/05/2024 1: 28 PM POT MAKER 09/05/2024 1:34 PM POT MAKER Narrative [facility] ([place]) - 09/05/2024 2:06 PM POT MAKER Is the patient experiencing any symptoms consistent with COVID (eg. Fever, cough, shortness of breath)?->No What is the reason for testing?->Screening prior to [facility] health admission ??Interpretive data: Testing performed by [facility]. ??This test is performed using the [employer] Xpert Xpress CoV-2 plus assay. This is a real-time RT-PCR test intended for the qualitative detection of nucleic acid from the SARS-CoV-2. This assay has been cleared by the [place] Food and Drug administration. The performance characteristics have been verified by [facility]. ??Results must be considered in the clinical context, and a negative result does not rule out infection. Interpretive data last revised 2024. us Osvaldo Voss MD LAB MICROBIOLOGY - GENERAL O RDERABLES Final Result [facility] ([place]) 1 [facility] [place] [address] * eGFR (09/05/2024 1:28 PM POT MAKER) eGFR >90 >=60 mL/min/1. 73 m2 Comment: [...] last reviewed 2021. Blood 09/05/2024 1:28 PM POT MAKER 09/05/2024 1:33 PM POT MAKER us Osvaldo Voss MD LAB BLOOD ORDERABLES Final R esult [facility] ([place]) 1 [facility] [place] [address] * Differential, auto (09/05/2024 1:28 PM POT MAKER) Neutrophil abs 6.4 1.5 - 6.5 K/cumm [...] revised on 2018. Blood 09/05/2024 1:28 PM POT MAKER 09/05/2024 1:33 PM POT MAKER Osvaldo Voss MD LAB BLOOD ORDERABLES Final R esult Performing Organization Address City/[facility] Co de Phone Number [facility] ([place]) 1 [facility] [place] [address] * Thyroid Function [place] (09/05/2024 1:28 PM POT MAKER) Pathologist [facility] TSH 1.09 0.30 - 4.20 mcIUnit/mL Blood 09/05/2024 1:28 PM POT MAKER 09/05/2024 1:33 PM POT MAKER Osvaldo Voss MD LAB BLOOD ORDERABLES Final R esult Performing Organization Address City/[facility]/ZIP Co de Phone Number [facility] ([place]) 1 [facility] [place] [address] * CBC with auto differential (09/05/2024 1:28 PM POT MAKER) WBC 9.9 3.8 - 9.9 K/cumm Hgb [...] ([place]) Blood (Blood, Venous) 09/05/2024 1:28 PM POT MAKER 09/05/2024 1:33 PM POT MAKER Osvaldo Voss MD LAB BLOOD ORDERABLES Final R esult Performing Organization Address City/[facility]/ZIP Co de Phone Number [facility] ([place]) 1 [facility] [place] [address] * Ethanol (09/05/2024 1:28 PM POT MAKER) Pathologist [facility] Ethanol <10 <=10 mg/dL Comment: Interpretive Data Legal limit of intoxication > or = 80 mg/dL Levels > or = 400 mg/dL are potentially TOXIC. Current interpretive data was last revised on 2018. Blood 09/05/2024 1:28 PM POT MAKER 09/05/2024 1:33 PM POT MAKER Osvaldo Voss MD LAB BLOOD ORDERABLES Final R esult [facility] ([place]) 1 [facility] [place] [address] * (ABNORMAL) Comprehensive metabolic panel (09/05/2024 1:28 PM POT MAKER) Sodium 137 135 - 145 mmol/L Potassium, [...] [facility] ([place]) Blood 09/05/2024 1:28 PM POT MAKER 09/05/2024 1:33 PM POT MAKER us Osvaldo Voss MD LAB BLOOD ORDERABLES Final R esult [facility] 1 [facility] [place] [address] * (ABNORMAL) Urinalysis reflex to microscopic and culture Urine (09/05/2024 1:22 PM POT MAKER) Color, ur Yellow Yellow Clarity, ur Clear [...] tendency for uric acid stone formation. Source: [facility] Current Interpretive Data was last revised on [...] [facility] ([place]) Urine 09/05/2024 1:22 PM POT MAKER 09/05/2024 1:24 PM POT MAKER us Osvaldo Voss MD LAB MICROBIOLOGY - GENERAL O RDERABLES Final Result [facility] ([place]) 1 [facility] [place] [address] * (ABNORMAL) Drugs of Abuse Screen, Urine without Confirmation (09/05/2024 1:22 PM POT MAKER) Amphetamine, ur Screen Positive, presumptive (A) CutOff [...] revised on 2018. Urine 09/05/2024 1:22 PM POT MAKER 09/05/2024 1:24 PM POT MAKER Narrative [facility] ([place]) - 09/05/2024 1:46 PM POT MAKER Drug of Abuse screening is performed by immunoassay for medical purposes only. ??This is not to be used for Pain Management purposes. Osvaldo Voss MD LAB URINE ORDERABLES Final R esult [facility] [place]) 1 [facility] [place] [address] * XR Shoulder Right 2 or More Views (08/28/2024 9:30 AM POT MAKER) Anatomical Region Laterality Modality Upper Extremities, Shoulder Right Comp uted Radiography 08/28/2024 12:3 1 PM POT MAKER Narrative 08/28/2024 12:37 PM POT MAKER EXAM DESCRIPTION: XR SHOULDER RIGHT 2 OR [...] D: ??08/28/2024 12:37 PM T: Report ID: [id number] Reading Location: ??[id number] Procedure Note Fred Tafoya MD - 08/28/2024 [...] by Fred Tafoya M.D. T: Report ID: [id number] Reading Location: [id number] us Talia M. Guebert PA IMG XR PROCEDURES Final R esult from Last 3 Months Insurance [employer] [place] [id number] [place] [phone] Advance Directives For more information, please contact: [phone] * Full Code (Latest Code Status on File) Date Activated Date Inactivated Comments 08/24/2022 5:39 PM 08/26/2022 3:22 PM Care Teams Sawing And Assembly Supervisor Relationship Specialty Start Date End Date Nehemiah Ulloa MD PCP - General Internal Medicine 01/14/22
--- OUTSIDE RECORDS SUMMARY | 2024-11-23 09:20 | XMS_ITS | Referral Summary ---
Author Organization [facility] Address [address] [place] [address] Care Team Providers Care Plastic Tubing Insulation Supervisor Name Role Phone Nehemiah Ulloa MD Primary Care Provider [phone] Encounters Date Type Department Care Team Description 11/16/2024 9:00 AM MANAGER LOSS PREVENTION Office Visit [facility] Medical [facility] Orthopedics and Sports Medicine [address] [place] [address] [address] [place] [address] Cristobal Lowe MD Acute pain of right shoulder (Primary Dx); Smoker; Nontraumatic complete tear of right rotator cuff 11/05/2024 9:38 PM MANAGER LOSS PREVENTION - 11/05/2024 10:28 PM MANAGER LOSS PREVENTION Emergency [facility] Emergency Department [address] [place] [address] Zeus Brink MD Acute pain of right shoulder (Primary Dx); Acute left ankle pain; Anal pain Discharge Disposition: Discharge to home or self care 10/31/2024 Telephone [facility] Orthopedics and Sports Medicine [address] [place] [address] [address] [place] [address] Cristobal Lowe MD sooner appointment 09/27/2024 2:05 PM MANAGER LOSS PREVENTION - 09/27/2024 11:59 PM MANAGER LOSS PREVENTION Hospital Encounter [facility] ([facility]) [address] [place] [address] Acute pain of right shoulder Discharge Disposition: Discharge to home or self care 09/05/2024 12:37 PM MANAGER LOSS PREVENTION - 09/05/2024 11:59 PM MANAGER LOSS PREVENTION Hospital Encounter [facility] Emergency, Room R Discharge Disposition: Discharge to home or self care 09/05/2024 1:07 PM MANAGER LOSS PREVENTION - 09/05/2024 4:24 PM MANAGER LOSS PREVENTION Emergency [facility] Emergency Department [address] [place] [address] Osvaldo Voss MD Suicidal ideation (Primary Dx) Discharge Disposition: Discharge to home or self care 08/28/2024 9:05 AM MANAGER LOSS PREVENTION - 08/28/2024 11:59 PM MANAGER LOSS PREVENTION Hospital Encounter [facility] Di[facility] Imaging [address] [place] [address] Acute pain of right shoulder Discharge Disposition: Discharge to home or self care 08/28/2024 9:15 AM MANAGER LOSS PREVENTION Office Visit [facility] Orthopedics and Sports Medicine [address] [place] [address] [address] [place] [address] Talia Lubin PA Acute pain of right [...] (07/10/2022): Added automatically from request for surgery [id number] Instability of left shoulder joint 02/09/2022 Overview (02/09/2022): Added automatically from request for surgery [id number] Nontraumatic complete tear of left rotator cuff 02/09/2022 Overview (02/09/2022): Added automatically from request for surgery [id number] Cervical facet syndrome 06/19/2016 Cervical vertebral fusion [...] on file Legal Sex Male 10:12 AM MANAGER LOSS PREVENTION Gender Identity Not on file Sexual Orientation Not on file Last Filed Vital Signs Vital Sign Reading Time Taken Comments Blood Pressure 141/77 11/05/2024 9:37 PM MANAGER LOSS PREVENTION Pulse 84 11/05/2024 9:37 PM MANAGER LOSS PREVENTION Temperature 36.9 ??C (98.5 ??F) 11/05/2024 9:37 PM CS T Respiratory Rate 20 11/05/2024 9:37 PM MANAGER LOSS PREVENTION Oxygen Saturation 100% 11/05/2024 9:37 PM MANAGER LOSS PREVENTION Inhaled Oxygen Concentration - - Weight 76.2 kg (168 lb) 11/16/2024 9:10 AM MANAGER LOSS PREVENTION Height 167.6 cm (5' 6 ) 11/16/2024 9:10 AM MANAGER LOSS PREVENTION Body Mass Index 27.12 11/16/2024 9:10 AM MANAGER LOSS PREVENTION Plan of Treatment Not on file Medical Devices Implanted Type Area Traffic Maintenance Supervisor Device Identifier Shelf Expiration Date Model / Serial / Lot Cervical Spine Fusion Instrumentation Spine Cervical Lt Shoulder Bicept And Cuff Reattachment Anchors Left: Shoulder Depuy Synthes Spine Symphony 4mm Spine Occipitocervicothoracic Short Lateral Offset [id number] - [id number] Implanted:Qty: 1 on 08/24/2022 by Monico Ramon MD at [facility] N/A: Spine Cervical Depuy Synthes Spine [id number] / / Depuy Synthes Spine 3.5mm 14mm Ply Spine Screw Bone Nonsterile 4mm Kenny [id number] - [id number] Implanted:Qty: 7 on 08/24/2022 by Monico Ramon MD at [facility] N/A: Spine Cervical Depuy Synthes Spine [id number] / / Depuy Synthes Spine 4mm 240mm Straight Kenny Spinal Titanium [id number] - [id number] Implanted:Qty: 2 on 08/24/2022 by Monico Ramon MD at [facility] N/A: Spine Cervical Depuy Synthes Spine [id number] / / Depuy Synthes Spine 4.5mm 26mm Ply Spine Pedicle Screw Bone Nonsterile 4mm Kenny [id number] - [id number] Implanted:Qty: 3 on 08/24/2022 by Monico Ramon MD at [facility] N/A: Spine Cervical Depuy Synthes Spine [id number] / / Depuy Synthes Spine [id number] Set Screw - [id number] Implanted:Qty: 14 on 08/24/2022 by Monico Ramon MD at [facility] N/A: Spine Cervical Depuy Synthes Spine [id number] / / Depuy Synthes Spine 5.5mm 30mm Ply Spine Pedicle Screw Bone Nonsterile 4mm Kenny [id number] - [id number] Implanted:Qty: 4 on 08/24/2022 by Monico Ramon MD at [facility] N/A: Spine Cervical Depuy Synthes Spine [id number] / / Medtronic [employer] Bmp Infuse Sm [id number] - [id number] Implanted:Qty: 1 on 08/24/2022 by Monico Ramon MD at [facility] N/A: Spine Cervical Medtronic Inc 10/25/2024 [id number] / / [id number] Allosource 1-4mm Freeze Dried Crushed Graft 30ml Bone Cancellous [id number] - [id number] Implanted:Qty: 1 on 08/24/2022 by Monico Ramon MD at [facility] N/A: Spine Cervical Allosource 08/03/2026 [id number] / / [id number] Procedures Procedure Name Priority Date/Time Associated Diagnosis Comments MRI SHOULDER RIGHT WO CONTRAST Schedule Routine, Read Routine (OP Routine) 09/27/2024 2:50 PM MANAGER LOSS PREVENTION Acute pain of right shoulder EGFR STAT 09/05/2024 1:28 PM MANAGER LOSS PREVENTION DIFFERENTIAL AUTO STAT 09/05/2024 1:2 8 PM MANAGER LOSS PREVENTION ETHANOL STAT 09/05/2024 1:28 PM MANAGER LOSS PREVENTION THYROID FUNCTION CASCADE STAT 09/05/2024 1:28 PM MANAGER LOSS PREVENTION COMPREHENSIVE METABOLIC PANEL STAT 09/05/2024 1:28 PM MANAGER LOSS PREVENTION CBC WITH AUTO DIFFERENTIAL STAT 09/05/2024 1:28 PM MANAGER LOSS PREVENTION COVID-19 CORONAVIRUS RNA Routine 09/05/2024 1:28 PM MANAGER LOSS PREVENTION DRUGS OF ABUSE SCREEN, URINE WITHOUT CONFIRMATION STAT 09/05/2024 1:22 PM MANAGER LOSS PREVENTION URINALYSIS AND REFLEX TO MICROSCOPIC AND CULTURE STAT 09/05/2024 1:22 PM MANAGER LOSS PREVENTION XR SHOULDER RIGHT 2 OR MORE VIEWS Schedule Routine, Read Routine (OP Routine) 08/28/2024 9:30 AM MANAGER LOSS PREVENTION Acute pain of right shoulder from Last 3 Months Results * MRI Shoulder Right WO Contrast (09/27/2024 2:50 PM MANAGER LOSS PREVENTION) Anatomical Region Laterality Modality Upper Extremities Right Magnetic Reson ance 09/27/2024 3:58 PM MANAGER LOSS PREVENTION Impressions 09/27/2024 4:06 PM MANAGER LOSS PREVENTION 1. Right rotator cuff tendinopathy with massive, [...] Avni Rivers M.D. Narrative 09/27/2024 4:06 PM MANAGER LOSS PREVENTION EXAMINATION: 1. MRI right shoulder without contrast [...] COVID-19 Coronavirus RNA Nasopharyngeal (09/05/2024 1:28 PM MANAGER LOSS PREVENTION) COVID-19 RNA Negative Negative Nasopharyngeal 09/05/2024 1: 28 PM MANAGER LOSS PREVENTION 09/05/2024 1:34 PM MANAGER LOSS PREVENTION Narrative [facility] - 09/05/2024 2:06 PM MANAGER LOSS PREVENTION Is the patient experiencing any symptoms consistent with COVID (eg. Fever, cough, shortness of breath)?->No What is the reason for testing?->Screening prior to [facility] health admission ??Interpretive data: Testing performed by [facility]. ??This test is performed using the [employer] Xpert Xpress CoV-2 plus assay. This is a real-time RT-PCR test intended for the qualitative detection of nucleic acid from the SARS-CoV-2. This assay has been cleared by the [place] Food and Drug administration. The performance characteristics have been verified by [facility]. ??Results must be considered in the clinical context, and a negative result does not rule out infection. Interpretive data last revised 2024. Osvaldo Voss MD LAB MICROBIOLOGY - GENERAL O RDERABLES Final Result [facility] 1 [facility] Department [place] [address] * eGFR (09/05/2024 1:28 PM MANAGER LOSS PREVENTION) eGFR >90 >=60 mL/min/1. 73 m2 Comment: [...] last reviewed 2021. Blood 09/05/2024 1:28 PM MANAGER LOSS PREVENTION 09/05/2024 1:33 PM MANAGER LOSS PREVENTION us Osvaldo Voss MD LAB BLOOD ORDERABLES Final R esult [facility] ([place] 1 [facility] Department [place] [address] * Differential, auto (09/05/2024 1:28 PM MANAGER LOSS PREVENTION) Pathologist [facility] Neutrophil abs 6.4 1.5 - 6.5 K/cumm Imm gran abs 0.0 0.0 - 0.1 K/cumm [facility] Lymphocyte abs 2.5 0.8 - 3.3 K/cumm [...] revised on 2018. Blood 09/05/2024 1:28 PM MANAGER LOSS PREVENTION 09/05/2024 1:33 PM MANAGER LOSS PREVENTION us Osvaldo Voss MD LAB BLOOD ORDERABLES Final R esult [facility] ([place]) 1 [facility] [place] [address] * Thyroid Function [place] (09/05/2024 1:28 PM MANAGER LOSS PREVENTION) Pathologist [facility] TSH 1.09 0.30 - 4.20 mcIUnit/mL Blood 09/05/2024 1:28 PM MANAGER LOSS PREVENTION 09/05/2024 1:33 PM MANAGER LOSS PREVENTION Osvaldo Voss MD LAB BLOOD ORDERABLES Final R esult [facility] ([place] 1 [facility] [place] [address] * CBC with auto differential (09/05/2024 1:28 PM MANAGER LOSS PREVENTION) Pathologist [facility] WBC 9.9 3.8 - 9.9 K/cumm [...] NRBC abs 0.00 0.00 - 0.01 K/cumm [facility] Blood (Blood, Venous) 09/05/2024 1:28 PM MANAGER LOSS PREVENTION 09/05/2024 1:33 PM MANAGER LOSS PREVENTION Osvaldo Voss MD LAB BLOOD ORDERABLES Final R esult Performing Organization Address City/[facility]/ZIP Co de Phone Number [facility] ([place] 1 [facility] Department [place] [address] * Ethanol (09/05/2024 1:28 PM MANAGER LOSS PREVENTION) Ethanol <10 <=10 mg/dL Comment: Interpretive Data Legal limit of intoxication > or = 80 mg/dL Levels > or = 400 mg/dL are potentially TOXIC. Current interpretive data was last revised on 2018. Blood 09/05/2024 1:28 PM MANAGER LOSS PREVENTION 09/05/2024 1:33 PM MANAGER LOSS PREVENTION Osvaldo Voss MD LAB BLOOD ORDERABLES [facility] Performing Organization Address [facility] Co de Phone Number [facility] ([place] 1 [facility] [place] [address] * (ABNORMAL) Comprehensive metabolic panel (09/05/2024 1:28 PM MANAGER LOSS PREVENTION) Sodium 137 135 - 145 mmol/L Potassium, pl 3.4 3.3 - 4.9 mmol/L [facility]) Chloride 101 97 - 110 mmol/L [facility]) CO2 25 22 - 32 mmol/L [facility] ([place]) Anion gap 12 2 - 15 mmol/L [facility] BUN 5(L) 6 - 25 mg/dL [facility] ([place] Creatinine 0.70(L) 0.80 - 1.30 mg/dL [facility] Glucose 82 70 - 199 mg/dL [facility] ([place]) Comment: Interpretive Data Fasting glucose >/= [...] [facility] ([place]) Blood 09/05/2024 1:28 PM MANAGER LOSS PREVENTION 09/05/2024 1:33 PM MANAGER LOSS PREVENTION us Osvaldo Voss MD LAB BLOOD ORDERABLES Final R esult [facility] ([place] 1 [facility] Department [place] [address] * (ABNORMAL) Urinalysis reflex to microscopic and culture Urine (09/05/2024 1:22 PM MANAGER LOSS PREVENTION) Color, ur Yellow Yellow Clarity, ur Clear [...] tendency for uric acid stone formation. Source: [facility] TRData Current Interpretive Data was last revised on 2017 Protein, ur ql Trace Negative [facility] ([place]) Glucose, ur ql Negative Negative [facility] ([place]) Ketones, ur Negative Negative [facility] ([place]) Bilirubin, ur Negative Negative [facility] ([place] Blood, ur Negative Negative [facility] ([place] Urobilinogen, ur 4.0(A) <2.0 mg/dL [facility] ([place]) Nitrite, ur Negative Negative [facility] ([place]) Leukocyte esterase, ur Negative Negative [facility] ([place]) UA reflex comment Reflex conditions for microscopic UA and culture not met. [facility] ([place]) Urine 09/05/2024 1:22 PM MANAGER LOSS PREVENTION 09/05/2024 1:24 PM MANAGER LOSS PREVENTION us Osvaldo Voss MD LAB MICROBIOLOGY - GENERAL O RDERABLES Final Result [facility] 1 [facility] Department [place] [address] * (ABNORMAL) Drugs of Abuse Screen, Urine without Confirmation (09/05/2024 1:22 PM MANAGER LOSS PREVENTION) Amphetamine, ur Screen Positive, presumptive (A) CutOff [...] Not Detected CutOff 25 ng/mL [facility] ([place]) Comment: Interpretive Data - Phencyclidine: ??Samples containing greater than 25 ng/mL phencyclidine or other cross-reacting compounds are reported as positive. ??False positive and false negative results are possible. Confirmatory testing required for definitive results. Current Interpretive Data was last reviewed 2023. Urine Creatinine 202 mg/dL [facility] ([place]) Comment: Interpretive Data Urine Creatinine: < 10 mg/dL is extremely dilute = or > 10 but < 20 mg/dL is dilute = or > 20 mg/dL is normal Current Interpretive Data was last revised on 2018. Urine 09/05/2024 1:22 PM MANAGER LOSS PREVENTION 09/05/2024 1:24 PM MANAGER LOSS PREVENTION Narrative [facility] ([place]) - 09/05/2024 1:46 PM MANAGER LOSS PREVENTION Drug of Abuse screening is performed by immunoassay for medical purposes only. ??This is not to be used for Pain Management purposes. Osvaldo Voss MD LAB URINE ORDERABLES Final R esult [facility] ([place] 1 [facility] Department [place] [address] * XR Shoulder Right 2 or More Views (08/28/2024 9:30 AM MANAGER LOSS PREVENTION) Anatomical Region Laterality Modality Upper Extremities, Shoulder Right Comp uted Radiography 08/28/2024 12:3 1 PM MANAGER LOSS PREVENTION Narrative 08/28/2024 12:37 PM MANAGER LOSS PREVENTION EXAM DESCRIPTION: XR SHOULDER RIGHT 2 OR [...] D: ??08/28/2024 12:37 PM T: Report ID: [id number] Reading Location: ??[id number] Procedure Note Fred Tafoya MD - 08/28/2024 [...] 12:37 PM - Electronically signed by Fred Tafyoa M.D. T: Report ID: [id number] Reading Location: [id number] [facility] XR PROCEDURES Final R esult from Last 3 Months Insurance MEDICARE SOLUTIONS [facility] [facility] HMO REF MEDICARE SOLUTIONS Advance Directives For more information, please contact: [phone] * Full Code (Latest Code Status on File) Date Activated Date Inactivated Comments 08/24/2022 5:39 PM 08/26/2022 3:22 PM Care Teams Plastic Tubing Insulation Supervisor Relationship Specialty Start Date End Date Nehemiah Ulloa MD PCP - General Internal Medicine 01/14/22
--- OUTSIDE RECORDS SUMMARY | 2024-11-23 09:20 | XMS_ITS | Clinical Summary ---
Author Organization [facility] Address [address] [place] [address] Phone Care Team Providers Care Rock Mason Apprentice Name Role Phone David Flood Primary Care Provider [phone] Allergies No known active allergies Medications risperiDONE [...] Comments Blood Pressure 135/76 09/23/2016 9:36 AM LEGAL DOCUMENT ASSISTANT Pulse 83 09/23/2016 9:36 AM LEGAL DOCUMENT ASSISTANT Temperature 36.2 ??C (97.2 ??F) 09/23/2016 9:36 AM CS T Respiratory Rate 16 09/23/2016 9:36 AM LEGAL DOCUMENT ASSISTANT Oxygen Saturation 98% 09/23/2016 9:36 AM LEGAL DOCUMENT ASSISTANT Inhaled Oxygen Concentration - - Weight 78.9 [...] MEDICAID [employer] [place] [id number] Care Teams Rock Mason Apprentice Relationship Specialty Start Date End Date David Flood [address] [place] [address] PCP - General Family Medicine 06/18/16
--- OUTSIDE RECORDS SUMMARY | 2024-11-23 09:20 | XMS_ITS | Patient Health Record ---
Author Organization [facility] Address [address] [place] [address] Care Team Providers Care Deburrer Strip Name Role Phone Juan Guerrai Primary Care Provider [phone] Allergies No Known Allergies Reason For Referral No Information Medications Medication SIG (Take, Route, Frequency, Duration) Notes Start Date End Date Status Xanax 0.5 MG 1 tablet Orally Twic e a day Active Cyclobenzaprine HCl 10 MG 1 tablet at be dtime as needed Orally Once a day for 30 day(s) Active Omeprazole 40 MG 1 capsule 30 minutes before morning meal Orally Once a day Active oxyCODONE HCl 15 MG 1 tablet Orally ever y 6 hrs Active Social History Tobacco Use: Social History Observation Description Date Details (start date - stop date) Current Smoker NA - NA Sex Assigned At : Social History Observation Description Sex Assigned At Male Dont use, Tobacco Use/Smoking Question Answer Notes Are you a current smoker Section Notes: PRESCRIPTION # FILLED WRITTEN DRUG LABEL QTY DAYS STRENGTH MEDD PRESCRIBER PHARMACY REFILL NO. REFILLS STATE 01/06/2023 01/01/2023 oxyCODONE HCL 112.0 28 10 MG 60.0 Carly Rushing - [id number] [place], [place] NA 0 [place] 1 [id number] 12/09/2022 12/07/2022 oxyCODONE HCL 112.0 28 10 MG 60.0 Kristan, Hafiz - [id number] [place], [place] NA 0 [place] 1 [id number] 11/04/2022 11/02/2022 oxyCODONE HCL 112.0 28 10 MG 60.0 Kristan, Hafiz - [id number] W PRESCRIPTION # FILLED WRITTEN DRUG LABEL QTY DAYS STRENGTH MME PRESCRIBER PHARMACY REFILL NO. REFILLS STATE 06/03/2023 06/03/2023 ALPRAZolam 60.0 30 0.5 MG Nehemiah King Md [id number] [place], [place] NA 0 [place] 1 [id number] 05/24/2023 05/24/2023 oxyCODONE HCL 112.0 28 15 MG 90 Kristan, Hafiz - [id number] [place], [place] NA 0 [place] 1 [id number] 05/24/2023 05/24/2023 Cyclobenzaprine Hcl 56.0 28 10 MG NA Kristan, Hafiz - [id number] [place] Reviewed PDMP is on pain med ication Reviewed PDMP is on pain med ication PRESCRIPTION # FILLED WRITTEN DRUG LABEL QTY DAYS STRENGTH MME PRESCR[facility]ARM[facility] REFILL NO. REFILLS STATE 03/29/2023 03/29/2023 oxyCODONE HCL 112.0 28 15 MG 90 Kristan, Hafiz - [id number] [place], [place] NA 0 [place] 1 [id number] 03/29/2023 03/29/2023 Cyclobenzaprine Hcl 56.0 28 10 MG NA Kristan, Hafiz - [id number] [place], [place] NA 0 [place] 1 [id number] 02/27/2023 02/25/2023 oxyCODONE HCL 112.0 28 10 MG 60 Kristan, Hafiz - [id number] PRESCRIPTION # FILLED WRITTEN DRUG LABEL QTY DAYS STRENGTH MME PRES[facility]ARM[facility] REFILL NO. REFILLS STATE 02/27/2023 02/25/2023 oxyCODONE HCL 112.0 28 10 MG 60 Kristan, Hafiz - [id number] [place], [place] NA 0 [place] 1 [id number] 02/25/2023 02/25/2023 Cyclobenzaprine Hcl 56.0 28 10 MG NA Kristan, Hafiz - [id number] [place], [place] NA 0 [place] 1 [id number] 02/01/2023 01/28/2023 oxyCODONE HCL 112.0 28 10 MG 60 Carly Rushing Md [id number] [place] PRESCRIPTION # FILLED WRITTEN DRUG LABEL QTY DAYS STRENGTH MME PRESCRIBER PHARMACY REFILL NO. REFILLS STATE 04/29/2023 04/29/2023 ALPRAZolam 60.0 30 0.5 MG Nehemiah King Md [id number] [place], [place] NA 0 [place] 1 [id number] 04/25/2023 04/17/2023 oxyCODONE HCL 112.0 28 15 MG 90 Carly Rushing [id number] [place], [place] NA 0 [place] 1 [id number] 04/25/2023 04/17/2023 Cyclobenzaprine Hcl 56.0 28 10 MG NA Carly Rushing [id number] [place] Problems Problem Type SNOMED Code ICD Code Onset Dates Problem Status W/U Status Risk Notes Problem Tobacco user (668462650) Nicotine dependence, unspecified, uncomplicated (F17.200) Active confirmed Problem Mood disorder (04391861) Mood disorder (F39) Active confirmed Plan Of Treatment No Information Insurance Providers Payer Name Payer Address Payer Phone Subscriber Number Group Number Insured Name Patient Relationship to Insured Coverage Start Date Coverage End Date U[employer] A[employer] Medicare [address] [address] [place] [address] [id number] Sam Rosenthal Self - patient is the insured 3 Medical (General) History Surgical History Surgery Date(Month/Year) cervical fusion 07/2022 shoulder replacement, Left 1989 shoulder replacement, Left 2018 Hospitalization History Reason Date(Month/Year)
--- OUTSIDE RECORDS SUMMARY | 2024-11-23 09:20 | XMS_ITS ---
Author Organization [facility] Address [address] [place] [address] Care Team Providers Care Digital Account Coordinator Name Role Phone Barby Guerra Primary Care Provider [phone] REASON FOR VISIT r/s from 06/02/23 follow up Social History Sex Assigned At : Social History Observation Description Sex Assigned At Male Encounters Encounter Location Date Provider Diagnosis [address] [place] [address] 06/16/2023 Barby Guerra Plan Of Treatment No Information Progress Notes * Sam ORNELASDOB: [birth year] (49 yo M)Acc No.[id number]:06/16/2023 UNLOCKED PROGRESS NOTE Patient:?Sam ORNELAS Provider:?ERICA Berger, SEA FOAM KISS MAKER-BC, PMHNP-BC :1975???Age:47 Y???Sex:Male Ryan e:06/16/2023 Address:[address], [facility] Subjective: * Chief Complaints: * ???1. R/s from 06/02/23 follo w up. * Medical History:? Objective: * Vitals:? Assessment: Plan: * Treatment: * * Electronic signature of Barby Guerra , [id number] on 11/23/2024 at 09:20 AM SMOCKING MACHINE OPERATOR Sign off status: Pending * Provider:?Devendra Berger, SEA FOAM KISS MAKER-BC, PMHNP-BC Date:?06/16/2023 Generated for Reggie lowe/Aisha/Velvet on:?11/23/2024 09:20 AM SMOCKING MACHINE OPERATOR
--- OUTSIDE RECORDS SUMMARY | 2024-11-23 09:20 | XMS_ITS | Patient Health Record ---
Author Organization [facility] Address [address] [facility] [address] [place] [address] Care Team Providers Care Plans Examiner Name Role Phone Jovana Kemp Unavailable [phone] Anne Marie Velizna Unavailable [phone] Migration, Provider Unavailable Unavailable Myriam Bernardo Unavailable [phone] Allergies No Known Allergies Results Component Value Reference Range Notes DRUG SCREEN, 14 DRUGS (DETEC TIMED), URINE Reviewed date:12/14/2023 12:00:00 AM Interpretation: Performing Lab: Notes/Report: Amphetamine negative Barbiturates negative Benzodiazipine negative Buprenorphine negative Cocaine negative MDMA/Ectasy negative Methadone negative Methamphetamine negative Morphine negative note 90, pos thc Oxycodone negative Phenocyclidine negative THC positive Reason For Referral No Information Medications Medication SIG (Take, Route, Frequency, Duration) Notes Start Date End Date Status Auvelity 45-105 MG 1 tablet Oral twice a day for 30 days 09/07/2024 Active oxyCODONE HCl 15 MG Oral 03/06/2024 Unknown ProAir HFA 108 (90 Base) MCG/ACT Inhalation 03/06/2024 Unknown Omeprazole 40 MG Oral 03/06/2024 Ac tive CHOLECALCIFEROL (VITAMIN D3) 50 MCG (2,000 UNIT) TABLET *Reorder from HistoryFile for eRx and Interaction Alerts* 03/06/2024 Unknown Escitalopram Oxalate 20 MG 1 tablet Oral Once a day for 90 days Active Ocilla Carbonate 150 MG 1 capsule Oral once a day for 30 days Active Cyclobenzaprine HCl 10 MG Oral 03/06/2024 Unknown Ondansetron HCl 4 MG Oral 03/06/2024 Unknown Ocilla Carbonate 150 MG 1 capsule Oral once a day for 30 days 09/27/2024 Active ALPRAZolam 0.5 MG 1 tablet Oral Twice a day for 30 days As needed 09/27/2024 Active Omeprazole 20 MG Oral 03/06/2024 Un known Cholecalciferol 1.25 MG (60659 UT) Oral 03/06/2024 Unknown oxyCODONE HCl 10 MG Oral 03/06/2024 Unknown Social History Sex Assigned At : Social History Observation Description Sex Assigned At Male Problems Problem Type SNOMED Code ICD Code Onset Dates Problem Status W/U Status Risk Notes Problem Severe recurrent major depression without psychotic features (91971132) Major depressive disorder, recurrent severe without psychotic features (F33.2) Active confirmed Problem Generalized anxiety disorder (09367265) Generalized anxiety disorder (F41.1) Active confirmed Problem Posttraumatic stress disorder (07520720) Post-traumatic stress disorder, chronic (F43.12) Active confirmed Vital Signs Heart Rate 91 /min 12/14/2023 Height-cm 165.10 cm 02/21/2024 Blood pressure diastolic 82 mm Hg 12/14/2023 Weight-kg 84.82 kg 12/14/2023 Height 65.00 in 02/21/2024 Blood pressure systolic 131 mm Hg 12/14/2023 Weight 187.00 lbs 12/14/2023 BMI 31.1 kg/m2 12/14/2023 Encounters Encounter Location Date Provider Diagnosis [facility] [address] [place] [address] 12/03/2023 Provider Migration [facility], [facility] [address] [place] [address] 12/07/2023 Provider Migration [facility], [facility] [address] [place] [address] 12/09/2023 Provider Migration [facility], [facility] [address] [place] [address] 12/17/2023 Provider Migration [facility], [facility] [address] [place] [address] 12/22/2023 Provider [facility], [facility] [address] [place] [address] 12/31/2023 Provider Migration [facility], [facility] [address] [place] [address] 01/14/2024 Provider Migration [facility], [facility] [address] [place] [address] 01/25/2024 Provider Migration [facility], [facility] [address] [place] [address] 02/29/2024 Provider Migration [facility], [facility] [address] [place] [address] 03/11/2024 Provider [facility], [facility] [address] [place] [address] 03/12/2024 Provider Migration [facility], [facility] [address] [place] [address] 03/14/2024 Provider [facility], [facility] [address] [place] [address] 09/07/2024 Jovana Kemp [facility], [facility] [address] [place] [address] 09/27/2024 Jovana Kemp Major depressive disorder, recurrent severe without psychotic features F33.2 and Generalized anxiety disorder F41.1 [facility], [facility] [address] [place] [address] 09/28/2024 Jovana Kemp [facility], [facility] [address] [place] [address] 10/13/2024 Jovana Kemp [facility], [facility] [address] [place] [address] 09/07/2024 Jovana Kemp [facility], [facility] [address] [place] [address] 12/14/2023 Jovana Kemp Gastro-esophageal reflux disease without esophagitis K21.9 ; Generalized anxiety disorder F41.1 ; Post-traumatic stress disorder, chronic F43.12 and Major depressive disorder, recurrent severe without psychotic features F33.2 [facility], [facility] [address] [place] [address] 02/21/2024 Jovana Kemp Post-traumatic stress disorder, chronic F43.12 ; Generalized anxiety disorder F41.1 and Major depressive disorder, recurrent severe without psychotic features F33.2 [facility], [facility] [address] [place] [address] 03/06/2024 Jovana Kemp Post-traumatic stress disorder, chronic F43.12 ; Generalized anxiety disorder F41.1 and Major depressive disorder, recurrent severe without psychotic features F33.2 [facility], [facility] [address] [place] [address] 12/22/2023 Provider Migration Major depressive disorder, recurrent severe without psychotic features F33.2 [facility], [facility] [address] [place] [address] 01/10/2024 Provider Migration Gastro-esophageal reflux disease without esophagitis K21.9 ; Generalized anxiety disorder F41.1 ; Post-traumatic stress disorder, chronic F43.12 and Major depressive disorder, recurrent severe without psychotic features F33.2 [facility] [address] [place] [address] 09/13/2024 Myriam Bernardo Generalized anxiety disorder F41.1 [facility] [place] [address] [place] [address] 09/27/2024 Myriam Bernardo [facility], [place] [address] [place] [address] 10/04/2024 Myriam Bernardo [facility], [facility] [address] [place] [address] 10/05/2024 Jovana Kemp [facility], [facility] [address] [place] [address] 11/16/2024 Jovana Kemp [facility], [facility] [address] [place] [address] 09/26/2024 Jovana Kemp [facility], [facility] [address] [place] [address] 04/04/2024 Jovana Kemp [facility], [facility] [address] [place] [address] 06/05/2024 Jovana Kemp Major depressive disorder, recurrent severe without psychotic features F33.2 ; Generalized anxiety disorder F41.1 and Post-traumatic stress disorder, chronic F43.12 [facility], [facility] [address] [place] [address] 07/06/2024 Jovana Kemp [facility], [facility] [address] [place] [address] 09/07/2024 Jovana Kemp Major depressive disorder, recurrent severe without psychotic features F33.2 ; Generalized anxiety disorder F41.1 and Post-traumatic stress disorder, chronic F43.12 Assessments Encounter Date Diagnosis (ICD Code) Assessment Notes Treatment Notes Treatment Clinical Notes Section Notes 09/27/2024 Major depressive disorder, recurrent severe without psychotic features (ICD-10 - F33.2) 06/05/2024 Major depressive disorder, recurrent severe without psychotic features (ICD-10 - F33.2) 06/05/2024 Generalized anxiety disorder (ICD-10 - F41.1) 09/07/2024 Major depressive disorder, recurrent severe without psychotic features (ICD-10 - F33.2) Electronic Prior Authorization was requested for Auvelity 45-105 MG Tablet Extended Release. Provider can order medication once approval received. 09/13/2024 Generalized anxiety disorder (ICD-10 - F41.1) 01/10/2024 Major depressive disorder, recurrent severe without psychotic features (ICD-10 - F33.2) 01/10/2024 Generalized anxiety disorder (ICD-10 - F41.1) 01/10/2024 Post-traumatic stress disorder, chronic (ICD-10 - F43.12) 01/10/2024 Gastro-esophagea l reflux disease without esophagitis (ICD-10 - K21.9) 09/27/2024 Generalized anxiety disorder (ICD-10 - F41.1) 03/06/2024 Major depressive disorder, recurrent severe without psychotic features (ICD-10 - F33.2) 03/06/2024 Generalized anxiety disorder (ICD-10 - F41.1) 03/06/2024 Post-traumatic stress disorder, chronic (ICD-10 - F43.12) 02/21/2024 Major depressive disorder, recurrent severe without psychotic features (ICD-10 - F33.2) 02/21/2024 Generalized anxiety disorder (ICD-10 - F41.1) 02/21/2024 Post-traumatic stress disorder, chronic (ICD-10 - F43.12) 12/22/2023 Major depressive disorder, recurrent severe without psychotic features (ICD-10 - F33.2) 12/14/2023 Major depressive disorder, recurrent severe without psychotic features (ICD-10 - F33.2) 12/14/2023 Generalized anxiety disorder (ICD-10 - F41.1) 12/14/2023 Post-traumatic stress disorder, chronic (ICD-10 - F43.12) 12/14/2023 Gastro-esophagea l reflux disease without esophagitis (ICD-10 - K21.9) 09/07/2024 Generalized anxiety disorder (ICD-10 - F41.1) alprazolam per PCP 06/05/2024 Post-traumatic stress disorder, chronic (ICD-10 - F43.12) 09/07/2024 Post-traumatic stress disorder, chronic (ICD-10 - F43.12) 06/05/2024 Other Decrease Ocilla to 150mg daily due to sedation. Discussed limiting use of alprazolam, as it can contribute to sedation and low motivation, energy. Patient educated on all medications including potential benefits, side effects, risks. Educated on proper dosing schedule and importance of compliance. Consider adding Wellbutrin in future if needed. 09/07/2024 Other Decrease escitalopram to 10mg daily. Start Auvelity-1 tablet daily for 3 days then one tablet twice daily 8 hours apart. - samples given Patient educated on all medications including potential benefits, side effects, risks. Educated on proper dosing schedule and importance of compliance. Referred to DBT group Plan Of Treatment No Information Insurance Providers Payer Name Payer Address Payer Phone Subscriber Number Group Number Insured Name Patient Relationship to Insured Coverage Start Date Coverage End Date [facility] [address] [place] [address] [id number] ENZO ORNELAS Self - patient is the insured Medical (General) History Medical History History ICD Code Problems: Chronic post-traumatic stress disorder Gastroesophageal reflux disease Generalized anxiety disorder Severe recurrent major depression withou t psychotic features Chronic pain GERD Surgical History Surgery Date(Month/Year) Procedure on shoulder (864809249) Procedure on back (952290293) Procedure on neck (676498690) Other 08/24/2022
--- OUTSIDE RECORDS SUMMARY | 2024-11-23 09:21 | XMS_ITS | Continuity of Care Document ---
Author Organization [facility] Address [address] [place] [address] [place] [address] Phone Care Team Providers Care Cone Worker Name Role Phone David Flood MD Unavailable Unavailable Allergies, Adverse Reactions, Alerts Substance Reaction Status Criticality No Known Allergies Active No Inform ation Medications Medication Instructions Dosage Effective Dates (start - stop) Status Comments Caputa 10 mg-325 mg tablet take 1 by [...] Diagnoses Date Provider Providers Copied on Encounter [facility], [address], [place], [place], [address], [place] tel:[phone] [facility] No Information 7 Rem[address]. [address], [place], [place], [address] , [place]. tel:[phone] Referring Provider: David Flood, [address], [place], [place], [address]. tel:[phone] OFFICE/OUTPA TIENT VISIT, EST [facility], [address], [place], [place], [address], [place] tel:[phone] [facility] chronic pain1 (chief complaint) HLP (chief complaint) thyroid ndoule1 (chief complaint) Thyroid noduleHyperlipidemi aChronic pain syndrome Remigio Hernandez. [address], [place], [place], [address] , [place]. tel:[phone] Referring Provider: [address]aim [address], [place], [place], [address]. tel:[phone] OFFICE/OUTPA TIENT VISIT, EST [facility], [address], [place], [place], [address], [place] tel:[phone] [facility] chronic pain (chief complaint) hanson (chief complaint) Chronic pain syndromeBarrett's esophagus without dysplasia 7 Remigio [address]. [address], [place], [place], [address] , [place]. tel:[phone] Referring Provider: Haim [address], [place], [place], [address]. tel:[phone] OFFICE/OUTPA TIENT VISIT, EST [facility], [address], [place], [place], [address], [place] tel:[phone] [facility] anxiety1 (chief complaint) chronic pain (chief complaint) Chronic pain syndromeThyroid nodule 6 Remigio Hernandez. [address], [place], [place], [address] , [place]. tel:[phone] Referring Provider: [address], [place], [place], [address]. tel:[phone] OFFICE/OUTPA TIENT VISIT, [facility], [address], [place], [place], [address], [place] tel:[phone] [facility] itchy (chief complaint) thyroid nodule (chief complaint) HLP (chief complaint) chronic pain (chief complaint) Chronic pain syndromeThyroid noduleRashHyperlipi demia 6 Remigio Hernandez. [address], [place], [place], [address] , [place]. tel:[phone] Referring Provider: [address], [place], [place], [address]. tel:[phone] OFFICE/OUTPA TIENT VISIT, [facility], [address], [place], [place], [address], [place] tel:[phone] [facility] chronic pain (chief complaint) thyroid nodule (chief complaint) tobacco1 (chief complaint) GERD1 (chief complaint) Chronic pain syndromeThyroid noduleBarrett's esophagus without dysplasiaBody mass index (BMI) 30.0-30.9, adult 6 Remigio [address]. [address], [place], [place], [address] , [place]. tel:[phone] Referring Provider: Haim [address], [place], [place], [address]. tel:[phone] OFFICE/OUTPA TIENT VISIT, [facility], [address] [place] [address], [place] tel:[phone] [facility] chronic pain (chief complaint) HLP (chief complaint) anxiety1 (chief complaint) tobacco (chief complaint) Chronic pain syndromeHyperlipide miaGeneralized Anxiety DisorderTobacco use 6 Remigio [address]. [address], [place], [place], [address] , . tel:[phone] Referring Provider: Haim [address], [place], [place], [address]. tel:[phone] OFFICE/OUTPA TIENT VISIT, [facility], [address], [place], [place], [address], [place] tel:[phone] [facility] chronic pain1 (chief complaint) tobacco (chief complaint) HLP (chief complaint) Hanson (chief complaint) Hanson's esophagus without dysplasiaHyperlipid emiaTobacco useChronic pain syndrome Sep-0 6 Remigio [address]. [address], [place], [place], [address] , [place]. [phone] Referring Provider: [address]aim [address], [place], [place], [address]. tel:[phone] OFFICE/OUTPA TIENT VISIT, [facility], [address], [place], [place], [address], [place] tel:[phone] [facility] HLP (chief complaint) chronic pain (chief complaint) GERD1 (chief complaint) HyperlipidemiaChron ic pain syndromeGERD w/o esophagitis 6 Remigio Hernandez. [address], [place], [place], [address] , [place]. [phone] Referring Provider: [address]aim [address], [place], [place], [address]. tel:[phone] OFFICE/OUTPA TIENT VISIT, [facility], [address], [place], [place], [address], [place] tel:[phone] [facility] chornic pain1 (chief complaint) HLP (chief complaint) tobacco1 (chief complaint) anxiety1 (chief complaint) Chronic pain syndromeHyperlipide miaTobacco useGeneralized Anxiety Disorder Apr- 6 Remigio Hernandez. [address], [place], [place], [address] , [place]. [phone] Referring Provider: Haim [address], [place], [place], [address]. tel:[phone] OFFICE/OUTPA TIENT VISIT, [facility], [address], [place], [place], [address], [place] [phone] [facility] hLP (chief complaint) low D (chief complaint) abd pain (chief complaint) chronic pain (chief complaint) HyperlipidemiaAbdom inal painGERD w/o esophagitisChronic pain syndrome Everardo- 6 Remigio [address]. [address], [place], [place], [address] , [place]. [phone] Referring Provider: Haim [address], [place], [place], [address]. tel:[phone] OFFICE/OUTPA TIENT VISIT, [facility], [address], [place], [place], [address], [place] tel:[phone] [facility] chronic pain (chief complaint) GERD1 (chief complaint) abd pain (chief complaint) GERD w/o esophagitisChronic pain syndromeOccult blood in stoolAbdominal pain February- 6 Remigio [address]. [address], [place], [place], [address] , [place]. [phone] Referring Provider: Haim [address], [place], [place], [address]. tel:[phone] PREV VISIT, NEW, AGE 40-64 [facility], [address], [place], [place], [address], [place] [phone] [facility] chronic pain (chief complaint) anxiety (chief complaint) Physical (chief complaint) Chronic pain syndromeEncounter for general adult medical exam w abnormal findingsGeneralized anxiety disorder Jan- 6 Remigio [address]. [address], [place], [place], [address] , [place]. tel:[phone] Referring Provider: [address]aim [address], [place], [place], [address]. tel:[phone] Family History Family Member Type Diagnosis Age At Onset Mother Problem (finding) renal Brother Problem (finding) Alive and well Mother Problem (finding) Father Problem (finding) Father Problem (finding) Coronary artery disease 45 Payers Payer name Insurance type Covered republican ID Authoriza tion(s) No Information Social History [...] and he is actually seeing neurology in [place] and is getting pain injection around his [...] give him pain medication? Pt is seeing [facility] pain management. Pt is taking [...] bladder control. Pt was seeing doctor in [place] for pain management but was told to find new MD since his condition was too complicated for her?? Pt also has difficulty driving to [place], Pt takes up to 6 per day [...] Education Related to Dietary Surveillance and Counseling Assessments Type Assessment Date No Information
--- OUTSIDE RECORDS SUMMARY | 2024-11-23 09:21 | XMS_ITS | Continuity of Care Document ---
Author Organization [facility] Address [address] [place] [address] [address] [place] [address] Phone Care Team Providers Care Cigarette Making Machine Catcher Name Role Phone Tobi Alonso Unavailable Unavailable Advance Directives Directive Yes / No Effective Date File Name No Information Encounters Encounter Description Practice Location Reason(s) For Visit Diagnoses Date Provider Providers Copied on Encounter [facility], [address] [place] [address] [address], [place], [place], [address], [place] tel:[phone] [facility] No Information [address]. [address], [place], [address], [place]. tel:[phone] Family History Family Member Type Diagnosis Age At Onset No Information Payers Payer name Insurance type Covered democrat ID Authoriza tisean(s) [employer] SOI CI [id number] Social History Type Description Quantity Date Captured [...]
--- OUTSIDE RECORDS SUMMARY | 2024-11-23 09:21 | XMS_ITS ---
Author Organization [facility] Address [address] [place] [address] Care Team Providers Care Ultrasound Coordinator Name Role Phone Barby Guerra Primary Care Provider [phone] REASON FOR VISIT 1 Month Psych F/U & Med Refill Medications Medication SIG (Take, Route, Frequency, Duration) [...] ever y 6 hrs Active Social History Sex Assigned At : Social History Observation Description Sex Assigned At Male Encounters Encounter Location Date Provider Diagnosis [address] [place] [address] 07/21/2023 Barby Guerra Plan Of Treatment No Information Progress Notes * Sam ORNELASDOB: [birth year] (49 yo M)Acc No.[id number]:07/21/2023 UNLOCKED PROGRESS NOTE Patient:?Sam ORNELAS Provider:?Barby Guerra, MSN, SPOOL HAULER-BC, PMHNP-BC :1975???Age:47 Y???Sex:Male Ryan e:07/21/2023 Address:[address], [place], [place] Subjective: * Chief Complaints: * ???1. 1 Month Psych F/U & Me d Refill. * Medical History:? * Medications:?Taking Omeprazo le 40 MG Capsule Delayed Release 1 capsule 30 minutes before morning meal Orally Once a day , Taking oxyCODONE HCl 15 MG Tablet 1 tablet Orally every 6 hrs , Taking Xanax 0.5 MG Tablet 1 tablet Orally Twice a day , Taking Cyclobenzaprine HCl 10 MG Tablet 1 tablet at bedtime as needed Orally Once a day Objective: * Vitals:? Assessment: Plan: * Treatment: * Recommended Wellness and Pre vention Guidelines: * ?Status ?Alert ?Last Done ?Next Due ?Action Taken ?NONCOMPLIANT ?Colorectal cancer screening ?- ? ?- ?NONCOMPLIANT ?HIV screening ?- ?07/21/2023 ?- * * Electronic signature of Barby Guerra , [id number] on 11/23/2024 at 09:20 AM FRENCH DRAWER Sign off status: Pending * Provider:?Devendra Berger, SPOOL HAULER-BC, PMHNP-BC Date:?07/21/2023 Generated for Reggie lowe/Aisha/eTransmitting on:?11/23/2024 09:20 AM FRENCH DRAWER
--- NOTE | 2024-11-23 09:58 | P.HP_ITS ---
H&P: HPI History of Present Illness Date/Time: 11/23/24 09:58 Chief Complaint: Perirectal pain Narrative: This is a 49-year-old man who recently had transanal internal drainage of perirectal abscess on 11/08/2024 and was seen in follow-up in the office by Dr. Block yesterday. He had finished his outpatient oral antibiotics and started having worsening perirectal pain and pressure. She was directly admitted for CT scanning concerned that he had recurrent perirectal abscess that is worsening. He has been admitted in the setting. Labs showed a normal white blood cell count. CT scan of the chest, abdomen, and pelvis showed emphysematous changes, mild esophagitis/gastritis, improving perianal abscess with persistent surrounding inflammatory change, but no significant fluid to suggest recurrent abscess. Review of Systems Review of Systems: All systems reviewed & are unremarkable except as noted in HPI and below PMFSH Past Medical History Medical History Sleep apnea Not on CPAP Scoliosis Gastric ulcer GI bleed 04/2023 Bipolar disorder Anxiety and depression HLD (hyperlipidemia) GERD (gastroesophageal reflux disease) Family hx of colon cancer History of adenomatous polyp of colon Rectal bleeding Skin cancer Back injury Neck pain with history of cervical spinal surgery Surgical History Surgical History History of spinal surgery History of banding of hemorrhoid 2020 History of rectal surgery I&D perirectal abscess Family History Family History Mother Hypertension Family history of diabetes mellitus in first degree relative Family history of malignant neoplasm of breast in first degree relative Other Carcinoma of colon Social History Social History Smoking packs per day: 0.5 Smoking cigarettes per day: 10.0 Years smoked: 35 Smoking pack-years: 17.50 Smoking status: Smoker, status unknown Tobacco type: cigarettes Alcohol intake: never Substance use: current Substance use type: marijuana Do You Feel Safe in your Home?: Yes Lack of Transportation: No Lack of Food: Never True Current Housing: I Have Housing Concerned About Future Housing: No Difficulty Paying Gas/Electric Bills: No Difficulty Paying for Meds: No Currently Unemployed: No Education: High School Diploma/GED Difficulty w/ Childcare or Family Care: No Living arrangements: with family Spiritual care concerns: No Meds Home Medications and Allergies Home Medications ?Medication ?Instructions ?Recorded ?Confirmed ?Type escitalopram oxalate 20 mg tablet 20 mg PO QHS 06/09/24 11/22/24 History allopurinol 100 mg tablet 100 mg PO QHS 11/08/24 11/22/24 History bupropion HCl 150 mg 24 hr tablet, 150 mg PO QHS 11/08/24 11/22/24 History extended release cholecalciferol (vitamin D3) 25 1,000 unit PO QHS 11/08/24 11/22/24 History mcg (1,000 unit) tablet omeprazole 40 mg capsule,delayed 40 mg PO QHS 11/08/24 11/22/24 History release oxycodone 15 mg tablet 15 mg PO 15 PRN pain (scale score 11/22/24 11/22/24 History 7-10) Allergies Allergy/AdvReac Type Severity Reaction Status Date / Time metaxalone Allergy Severe Swelling Verified 11/22/24 18:04 of Lip/Tongue/Throat gabapentin Allergy Mild Other Verified 11/22/24 18:04 Vital Signs Vital Signs - 24 hr 11/22/24 18:15 11/22/24 18:15 11/22/24 20:00 Temperature 97.6 F 97.8 F Pulse Rate 93 91 Respiratory Rate 18 18 Blood Pressure 144/91 H 150/82 H Pulse Oximetry 97 99 Oxygen Delivery Room Air 11/22/24 20:00 11/22/24 23:34 11/23/24 03:34 Temperature 98.0 F 97.9 F Pulse Rate 88 78 Respiratory Rate 17 17 Blood Pressure 131/92 H 140/88 Pulse Oximetry 96 98 Oxygen Delivery Room Air 11/23/24 08:40 Temperature Pulse Rate Respiratory Rate Blood Pressure Pulse Oximetry Oxygen Delivery Room Air Exam Const: General: comfortable and no acute distress Nutritional Appearance: average body habitus Orientation/consciousness: patient oriented x3 HENMT: Head: normocephalic and atraumatic Ears: hearing grossly normal bilaterally Mouth: Yes moist mucous membranes Eyes: General: appearance normal, both eyes and all related structures Pupils: Equal, round and reactive pupils present Neck: Neck: normal visual inspection and full ROM Resp: Effort & Inspection: no respiratory distress Auscultation: clear to auscultation bilaterally Cardio: Rate: regular rate Rhythm: regular rhythm Peripheral pulses: Peripheral pulses 2+ throughout GI: Inspection: non-distended GI Palp: Yes Soft to palpation, No Tenderness to palpation present (GI), No Guarding due to palpation present (GI), Yes No hepatosplenomegaly present and No Rebound tenderness present Auscultation: normal bowel sounds Rectal Exam: deferred and other (digital rectal exam deferred due to pain, examined by Dr. Block yesterday) Skin: General skin exam: normal color Neuro: General: moves all extremities and no focal motor deficits Speech: normal speech Motor exam (neuro): 5/5 motor strength present throughout Extrem: General: normal to inspection and no edema Psych: Mental Status: mental status grossly normal Attitude: cooperative Insight: Good insight present (Psych) Judgement: Good judgement present (Psych) H&P: Results Labs Labs: Short CBC 11/22/24 Range/Units 18:47 WBC 7.1 (4.5-10.0) K/mm3 Hgb 14.3 (14.0-18.0) g/dL Hct 42.9 (42.0-52.0) % Plt Count 204 (150-375) k/mm3 BMP 11/22/24 18:47 Sodium 139 Potassium 3.8 Chloride 103 Carbon Dioxide 26 BUN 9 Creatinine 0.73 Glucose 113 H Calcium 9.5 Liver Function 11/22/24 Range/Units 18:47 Total Bilirubin 0.4 (0.2-1.3) mg/dL AST 23 (17-59) U/L ALT 16 (6-50) U/L Alkaline Phosphatase 113 (38-126) U/L Albumin 4.0 (3.5-5.1) g/dL Imaging CT scan - abdomen: Radiologist's impression: ITS Impressions Chest/Abdomen/Pelvis CT 11/22/24 19:34 IMPRESSION: Emphysematous changes. Mild esophagitis/gastritis. Improving perianal abscess. Assessment and Plan Assessment and plan (1) Perirectal abscess: Code(s): K61.1 - Rectal abscess Status: Acute Assessment and Plan: * Patient underwent transanal internal drainage of perirectal abscess on 11/08/2024. He was admitted for perirectal pain and pressure with concerns of recurrent perirectal abscess. CT scan of the chest, abdomen, and pelvis showed no fluid collection or perirectal abscess that would require incision and drainage. There is still some surrounding inflammatory change on the CT scan and he primarily has induration on exam. He essentially failed outpatient oral antibiotics, so we will continue IV antibiotics for today. Analgesics are available for pain control. Will allow him to eat a regular diet and plan to repeat his exam tomorrow. (2) GERD (gastroesophageal reflux disease): Qualifiers: Esophagitis presence: esophagitis presence not specified Qualified Code(s): K21.9 - Gastro-esophageal reflux disease without esophagitis Code(s): K21.9 - Gastro-esophageal reflux disease without esophagitis Status: Chronic Assessment and Plan: * CT showed evidence of gastritis/esophagitis. Currently on IV Protonix Q12H (3) Tobacco dependence: Code(s): F17.200 - Nicotine dependence, unspecified, uncomplicated Status: Chronic Assessment and Plan: * Encouraged cessation Plan I have discussed the patient's case and plan of care with Dr. Block.
[2024-11-23 10:55] VITALS: BMI 27.6
[2024-11-23 12:00] VITALS: BP 151/85; PULSE 78; RESP 15; TEMP 36.4; O2SAT 99
[2024-11-23 16:00] VITALS: BP 164/84; PULSE 71; RESP 16; TEMP 36.9; O2SAT 100
[2024-11-23 20:00] VITALS: BP 146/92; PULSE 73; RESP 16; TEMP 36.3; O2SAT 99
[2024-11-23] MEDS: buPROPion HCL XL (24 HR) 150 MG TABCR PO (20:05)
[2024-11-23] MEDS: ESCITALOPRAM OXALATE 10 MG TABLET 20 MG PO (20:05)
[2024-11-23] MEDS: allopurinoL 100 MG TABLET PO (20:05)
[2024-11-23] MEDS: CHOLECALCIFEROL 1,000 UNITS TABLET 1000 UNITS PO (20:05)
[2024-11-23] MEDS: PANTOPRAZOLE 40 MG TABLET PO (20:05)
[2024-11-24] VITALS: BP 162/85; PULSE 76; RESP 18; TEMP 36.9; O2SAT 100
[2024-11-24] MEDS: PIPERACILLN/TAZ 3.375GM/NS50ML 3.375 GM/50 ML BAG IVPB ×2 (02:09→08:31)
[2024-11-24 04:00] VITALS: BP 152/88; PULSE 79; RESP 18; TEMP 36.6; O2SAT 98
[2024-11-24] MEDS: metroNIDAZOLE 500 MG/ISO 100ML 500 MG/100 ML BAG 100 MG IVPB (05:30)
--- NOTE | 2024-11-24 07:37 | P.CDI_ITS ---
CDI Query Clarification Request BMI: 27.7 Nutritional Diagnostic Statement: Please refer to the comprehensive nutrition assessment for further information. If you agree with diagnosis of Moderate protein calorie malnutrition related to loss of appetite as evidenced by weight loss -11%/4 months; inadequate intake <75% needs >1 month; moderate muscle wasting and fat loss. Please specify severity if known: * Mild * Moderate * Severe * Other/Unknown
[2024-11-24 08:00] VITALS: BP 151/95; PULSE 63; RESP 20; TEMP 36.2; O2SAT 99
[2024-11-24] MEDS: PANTOPRAZOLE 40 MG TABLET PO (08:31)
--- NOTE | 2024-11-24 08:52 | PM.DS ---
DS: Admitting Diagnosis Discharge Date November 24, 2024 Admitting Diagnosis Recurrent perirectal abscess DS: Discharge Diagnosis Discharge Diagnosis Plan Perirectal cellulitis DS: Summary Hospital Course Reason for hospitalization: Recurrent perirectal abscess Hospital Course: Patient is a 49-year-old gentleman who about 2 weeks ago had transanal internal drainage of a perirectal abscess. He was following the office and was complaining of worsening pressure and mildly decreased pain like he had prior to his drainage. On examination the office he did have any obvious drainage but he had area of induration similar to what he had prior to his drainage and admission a couple of weeks ago. He says he was admitted to the hospital for IV antibiotics and a CT scan of the abdomen pelvis was performed. This showed no evidence of a recurrent abscess fortunately. There was improved but still some induration in the area seemed to have need a recurrent drainage of a perirectal abscess. His white blood cell count was normal. He is afebrile. In next 48hours his symptoms improved and he remains clinically stable. White blood count was still normal. He received Zosyn and Flagyl for IV antibiotics coverage while he was admitted to the hospital. He is being discharged home on Bactrim DS for oral antibiotics. Status at Discharge Functional status at discharge: independent ambulation Overall status at discharge: patient is back to baseline Time Spent with Patient Time attestation: Total time spent providing and/or coordinating discharge services: Time spent: Less than 30 minutes Exam GI: Other: Rectal exam reveals no santa anal redness or drainage. Palpation of the mild induration which is similar to what was felt in the office. It certainly is no worse. He has no tenderness to palpation. There is no fluctuance. Discharge Plan Discharge Attending physician on discharge: Alfonso Block Discharging Clinician: Alfonso Block Anticipated Discharge Date/Time: 11/24/24 08:48 Patient Disposition: Home, Self-Care Activity: may shower Diet: as tolerated Wound Care Instructions: other - see discharge instructions Discharge Instructions: Discharge this morning. No special activity or diet instructions. Follow-up office with Dr. Block in 1 to 2 weeks. Patient to call [phone] for an appointment Patient Instructions: Antibiotic Form Patient Language: Barbadian Stand Alone Forms: General Discharge Information Follow-up/Referrals: Alfonso Block MD [Physician] - Discharge Medications: New sulfamethoxazole-trimethoprim [Bactrim DS] 800-160 mg tablet 1 tablet PO Q12H Qty: 20 0RF Continued escitalopram oxalate 20 mg tablet 20 mg PO QHS oxycodone 15 mg tablet 15 mg PO 15 PRN (Reason: pain (scale score 7-10)) Patient Comments: q4h allopurinol 100 mg tablet 100 mg PO QHS bupropion HCl 150 mg tablet extended release 24 hr 150 mg PO QHS omeprazole 40 mg capsule,delayed release(DR/EC) 40 mg PO QHS cholecalciferol (vitamin D3) 25 mcg (1,000 unit) tablet 1,000 unit PO QHS Date of admission: 11/22/24 17:55 Primary Care Provider: ArtemioNehemiah Admitting Provider: Alfonso Block Attending physician on admission: Alfonso Block Condition: Improved
--- OUTSIDE RECORDS SUMMARY | 2024-11-24 14:39 | XMS_ITS | Continuity of Care Document ---
Author Organization [facility] Address [address] [place] [address] [address] [place] [address] Phone Care Team Providers Care Die Maker Trim Name Role Phone Tobi Alonso Unavailable Unavailable Advance Directives Directive Yes / No Effective Date File Name No Information Encounters Encounter Description Practice Location Reason(s) For Visit Diagnoses Date Provider Providers Copied on Encounter [facility], [id number] [place] [address] [address], [place], [place], [id number], [place] tel:[phone] [facility] No Information [address] , [address], [place], [address], [place]. tel:[phone] Family History Family Member Type Diagnosis Age At Onset No Information Payers Payer name Insurance type Covered alliance party ID Authoriza tisean(s) [employer] CI [id number] Social History Type Description Quantity Date Captured [...]
--- OUTSIDE RECORDS SUMMARY | 2024-11-24 14:39 | XMS_ITS | Clinical Summary ---
Author Organization [facility] Address [address] [place] [phone] Care Team Providers Care Web Site Specialist Name Role Phone Nehemiah Ulloa MD Primary Care Provider [phone] Allergies Active Allergy Reactions Criticality Noted Date [...] (07/10/2022): Added automatically from request for surgery [id number] Instability of left shoulder joint 02/09/2022 Overview (02/09/2022): Added automatically from request for surgery [id number] Nontraumatic complete tear of left rotator cuff 02/09/2022 Overview (02/09/2022): Added automatically from request for surgery [id number] Cervical facet syndrome 06/19/2016 Cervical vertebral fusion [...] Department Care Team Description 11/16/2024 9:00 AM METAL DIE FINISHER Office Visit [facility] [address] [place] [phone] Cristobal Lowe MD Acute pain of right shoulder (Primary Dx); Smoker; Nontraumatic complete tear of right rotator cuff 11/05/2024 9:38 PM METAL DIE FINISHER - 11/05/2024 10:28 PM METAL DIE FINISHER Emergency [facility] Emergency Department [address] [place] [address] Zeus Brink MD Acute pain of right shoulder (Primary Dx); Acute left ankle pain; Anal pain Discharge Disposition: Discharge to home or self care 10/31/2024 Telephone [facility] Orthopedics and Sports Medicine [address] [place] [phone] Cristobal Lowe MD sooner appointment 09/27/2024 2:05 PM METAL DIE FINISHER - 09/27/2024 11:59 PM METAL DIE FINISHER Hospital Encounter [facility] ([facility]) [address] [place] [phone] Acute pain of right shoulder Discharge Disposition: Discharge to home or self care 09/05/2024 1:07 PM METAL DIE FINISHER - 09/05/2024 4:24 PM METAL DIE FINISHER Emergency [facility] Emergency Department [address] [place] [address] Osvaldo Voss MD Suicidal ideation (Primary Dx) Discharge Disposition: Discharge to home or self care 09/05/2024 12:37 PM METAL DIE FINISHER - 09/05/2024 11:59 PM METAL DIE FINISHER Hospital Encounter [facility] Emergency, Room R Discharge Disposition: Discharge to home or self care 08/28/2024 9:15 AM METAL DIE FINISHER Office Visit [facility] Orthopedics and Sports Medicine [address] [place] [address] [place] [phone] Talia Lubin PA Acute pain of right shoulder (Primary Dx) 08/28/2024 9:05 AM METAL DIE FINISHER - 08/28/2024 11:59 PM METAL DIE FINISHER Hospital Encounter [facility] [address] [place] [address] Acute pain of right shoulder Discharge Disposition: [...] on file Legal Sex Male 10:12 AM METAL DIE FINISHER Gender Identity Not on file Sexual Orientation Not on file Obstetrics History Last Filed Vital Signs Vital Sign Reading Time Taken Comments Blood Pressure 141/77 11/05/2024 9:37 PM METAL DIE FINISHER Pulse 84 11/05/2024 9:37 PM METAL DIE FINISHER Temperature 36.9 ??C (98.5 ??F) 11/05/2024 9:37 PM CS T Respiratory Rate 20 11/05/2024 9:37 PM METAL DIE FINISHER Oxygen Saturation 100% 11/05/2024 9:37 PM METAL DIE FINISHER Inhaled Oxygen Concentration - - Weight 76.2 kg (168 lb) 11/16/2024 9:10 AM METAL DIE FINISHER Height 167.6 cm (5' 6 ) 11/16/2024 9:10 AM METAL DIE FINISHER Body Mass Index 27.12 11/16/2024 9:10 AM METAL DIE FINISHER Plan of Treatment Health Maintenance Due Date [...] 2) 2024 Medical Devices Implanted Type Area Recycling Collections Driver Device Identifier Shelf Expiration Date Model / Serial / Lot Cervical Spine Fusion Instrumentation Spine Cervical Lt Shoulder Bicept And Cuff Reattachment Anchors Left: Shoulder [employer] Spine Symphony 4mm Spine Occipitocervicothoracic Short Lateral Offset [id number] - [id number] Implanted:Qty: 1 on 08/24/2022 by Monico Ramon MD at [facility] N/A: Spine Cervical Depuy Synthes Spine [id number] / / Depuy Synthes Spine 3.5mm 14mm Ply Spine Screw Bone Nonsterile 4mm Kenny [id number] - [id number] Implanted:Qty: 7 on 08/24/2022 by Monico Ramon MD at [facility] N/A: Spine Cervical Depuy Synthes Spine [id number] / / Depuy Synthes Spine 4mm 240mm Straight Kenny Spinal Titanium [id number] - [id number] Implanted:Qty: 2 on 08/24/2022 by Monico Ramon MD at [facility] N/A: Spine Cervical Depuy Synthes Spine [id number] / / Depuy Synthes Spine 4.5mm 26mm Ply Spine Pedicle Screw Bone Nonsterile 4mm Kenny [id number] - [id number] Implanted:Qty: 3 on 08/24/2022 by Monico Ramon MD at [facility] N/A: Spine Cervical Depuy Synthes Spine [id number] / / Depuy Synthes Spine [id number] Set Screw - [id number] Implanted:Qty: 14 on 08/24/2022 by Monico Ramon MD at [facility] N/A: Spine Cervical Depuy Synthes Spine [id number] / / Depuy Synthes Spine 5.5mm 30mm Ply Spine Pedicle Screw Bone Nonsterile 4mm Kenny [id number] - [id number] Implanted:Qty: 4 on 08/24/2022 by Monico Ramon MD at [facility] N/A: Spine Cervical Depuy Synthes Spine [id number] / / Medtronic Inc Bmp Infuse Sm [id number] - [id number] Implanted:Qty: 1 on 08/24/2022 by Monico Ramon MD at [facility] N/A: Spine Cervical Medtronic Inc 10/25/2024 [id number] / / [id number] Allosource 1-4mm Freeze Dried Crushed Graft 30ml Bone Cancellous [id number] - [id number] Implanted:Qty: 1 on 08/24/2022 by Monico Ramno MD at [facility] N/A: Spine Cervical Allosource 08/03/2026 [id number] / / [id number] Procedures Procedure Name Priority Date/Time Associated Diagnosis Comments MRI SHOULDER RIGHT WO CONTRAST Schedule Routine, Read Routine (OP Routine) 09/27/2024 2:50 PM METAL DIE FINISHER Acute pain of right shoulder EGFR STAT 09/05/2024 1:28 PM METAL DIE FINISHER DIFFERENTIAL AUTO STAT 09/05/2024 1:2 8 PM METAL DIE FINISHER ETHANOL STAT 09/05/2024 1:28 PM METAL DIE FINISHER THYROID FUNCTION CASCADE STAT 09/05/2024 1:28 PM METAL DIE FINISHER COMPREHENSIVE METABOLIC PANEL STAT 09/05/2024 1:28 PM METAL DIE FINISHER CBC WITH AUTO DIFFERENTIAL STAT 09/05/2024 1:28 PM METAL DIE FINISHER COVID-19 CORONAVIRUS RNA Routine 09/05/2024 1:28 PM METAL DIE FINISHER DRUGS OF ABUSE SCREEN, URINE WITHOUT CONFIRMATION STAT 09/05/2024 1:22 PM METAL DIE FINISHER URINALYSIS AND REFLEX TO MICROSCOPIC AND CULTURE STAT 09/05/2024 1:22 PM METAL DIE FINISHER XR SHOULDER RIGHT 2 OR MORE VIEWS Schedule Routine, Read Routine (OP Routine) 08/28/2024 9:30 AM METAL DIE FINISHER Acute pain of right shoulder from Last 3 Months Results * MRI Shoulder Right WO Contrast (09/27/2024 2:50 PM METAL DIE FINISHER) Anatomical Region Laterality Modality Upper Extremities Right Magnetic Reson ance 09/27/2024 3:58 PM METAL DIE FINISHER Impressions 09/27/2024 4:06 PM METAL DIE FINISHER 1. Right rotator cuff tendinopathy with massive, [...] Avni Rivers M.D. Narrative 09/27/2024 4:06 PM METAL DIE FINISHER EXAMINATION: 1. MRI right shoulder without contrast [...] signed by: Avni Rivers M.D. [place]ia [facility] [place] PROCEDURES Final Result * COVID-19 Coronavirus RNA Nasopharyngeal (09/05/2024 1:28 PM METAL DIE FINISHER) COVID-19 RNA Negative Negative Nasopharyngeal 09/05/2024 1: 28 PM METAL DIE FINISHER 09/05/2024 1:34 PM METAL DIE FINISHER Narrative [facility] ([place]) - 09/05/2024 2:06 PM METAL DIE FINISHER Is the patient experiencing any symptoms consistent with COVID (eg. Fever, cough, shortness of breath)?->No What is the reason for testing?->Screening prior to [facility] health admission ??Interpretive data: Testing performed by [facility]. ??This test is performed using the Rapid7 Xpert Xpress CoV-2 plus assay. This is a real-time RT-PCR test intended for the qualitative detection of nucleic acid from the SARS-CoV-2. This assay has been cleared by the [place] Food and Drug administration. The performance characteristics have been verified by [facility]. ??Results must be considered in the clinical context, and a negative result does not rule out infection. Interpretive data last revised 2024. us Osvaldo Voss MD LAB MICROBIOLOGY - GENERAL O RDERABLES Final Result [facility] ([place]) 1 [facility] [place] [address] * eGFR (09/05/2024 1:28 PM METAL DIE FINISHER) eGFR >90 >=60 mL/min/1. 73 m2 Comment: [...] last reviewed 2021. Blood 09/05/2024 1:28 PM METAL DIE FINISHER 09/05/2024 1:33 PM METAL DIE FINISHER us Osvaldo Voss MD LAB BLOOD ORDERABLES Final R esult [facility] ([place]) 1 [facility] [place] [address] * Differential, auto (09/05/2024 1:28 PM METAL DIE FINISHER) Neutrophil abs 6.4 1.5 - 6.5 K/cumm Imm gran abs 0.0 0.0 - 0.1 K/cumm [facility] ([place]) Lymphocyte abs 2.5 0.8 - 3.3 K/cumm [facility] ([place]) Monocyte abs 0.8 0.2 - 0.8 K/cumm [facility] ([place]) Eosinophil abs 0.1 0.0 - 0.5 K/cumm [facility] ([place]) Basophil abs 0.0 0.0 - 0.1 K/cumm [...] revised on 2018. Blood 09/05/2024 1:28 PM METAL DIE FINISHER 09/05/2024 1:33 PM METAL DIE FINISHER Osvaldo Voss MD LAB BLOOD ORDERABLES Final R esult Performing Organization Address City/[facility] Co de Phone Number [facility] ([place]) 1 [facility] [place] [address] * Thyroid Function Juliette (09/05/2024 1:28 PM METAL DIE FINISHER) Pathologist [facility] TSH 1.09 0.30 - 4.20 mcIUnit/mL Blood 09/05/2024 1:28 PM METAL DIE FINISHER 09/05/2024 1:33 PM METAL DIE FINISHER Osvaldo Voss MD LAB BLOOD ORDERABLES Final R esult Performing Organization Address City/[facility]/ZIP Co de Phone Number [facility] 1 [facility] [place] [address] * CBC with auto differential (09/05/2024 1:28 PM METAL DIE FINISHER) WBC 9.9 3.8 - 9.9 K/cumm Hgb [...] ([place]) Blood (Blood, Venous) 09/05/2024 1:28 PM METAL DIE FINISHER 09/05/2024 1:33 PM METAL DIE FINISHER Osvaldo Voss MD LAB BLOOD ORDERABLES Final R esult Performing Organization Address City/[facility]/ZIP Co de Phone Number [facility] ([place]) 1 [facility] [place] [address] * Ethanol (09/05/2024 1:28 PM METAL DIE FINISHER) Pathologist [facility] Ethanol <10 <=10 mg/dL Comment: Interpretive Data Legal limit of intoxication > or = 80 mg/dL Levels > or = 400 mg/dL are potentially TOXIC. Current interpretive data was last revised on 2018. Blood 09/05/2024 1:28 PM METAL DIE FINISHER 09/05/2024 1:33 PM METAL DIE FINISHER Osvaldo Voss MD LAB BLOOD ORDERABLES Final R esult [facility] ([place]) 1 [facility] [place] [address] * (ABNORMAL) Comprehensive metabolic panel (09/05/2024 1:28 PM METAL DIE FINISHER) Sodium 137 135 - 145 mmol/L Potassium, [...] [facility] ([place]) Blood 09/05/2024 1:28 PM METAL DIE FINISHER 09/05/2024 1:33 PM METAL DIE FINISHER us Osvaldo Voss MD LAB BLOOD ORDERABLES Final R esult [facility] ([place]) 1 [facility] Department [place] [address] * (ABNORMAL) Urinalysis reflex to microscopic and culture Urine (09/05/2024 1:22 PM METAL DIE FINISHER) Color, ur Yellow Yellow Clarity, ur Clear [...] tendency for uric acid stone formation. Source: [facility] [place] Current Interpretive Data was last revised on [...] [facility] ([place]) Urine 09/05/2024 1:22 PM METAL DIE FINISHER 09/05/2024 1:24 PM METAL DIE FINISHER us Osvaldo Voss MD LAB MICROBIOLOGY - GENERAL O RDERABLES Final Result [facility] ([place]) 1 [facility] [place] [address] * (ABNORMAL) Drugs of Abuse Screen, Urine without Confirmation (09/05/2024 1:22 PM METAL DIE FINISHER) Amphetamine, ur Screen Positive, presumptive (A) CutOff [...] revised on 2018. Urine 09/05/2024 1:22 PM METAL DIE FINISHER 09/05/2024 1:24 PM METAL DIE FINISHER Narrative [facility] ([place]) - 09/05/2024 1:46 PM METAL DIE FINISHER Drug of Abuse screening is performed by immunoassay for medical purposes only. ??This is not to be used for Pain Management purposes. Osvaldo Voss MD LAB URINE ORDERABLES Final R esult [facility] [place]) 1 [facility] [place] [address] * XR Shoulder Right 2 or More Views (08/28/2024 9:30 AM METAL DIE FINISHER) Anatomical Region Laterality Modality Upper Extremities, Shoulder Right Comp uted Radiography 08/28/2024 12:3 1 PM METAL DIE FINISHER Narrative 08/28/2024 12:37 PM METAL DIE FINISHER EXAM DESCRIPTION: XR SHOULDER RIGHT 2 OR [...] D: ??08/28/2024 12:37 PM T: Report ID: [id number] Reading Location: ??[id number] Procedure Note Fred Tafoya MD - 08/28/2024 [...] by Fred Tafoya M.D. T: Report ID: [id number] Reading Location: [id number] us Talia M. Guebert PA IMG XR PROCEDURES Final R esult from Last 3 Months Insurance MEDICARE [employer] [facility] MEDIC[facility] Address: [facility] [address] [id number] [facility] Address: [facility] [address] [address] [facility] Address: [facility] [address] [place] [address] Advance Directives For more information, please contact: [phone] * Full Code (Latest Code Status on File) Date Activated Date Inactivated Comments 08/24/2022 5:39 PM 08/26/2022 3:22 PM Care Teams Web Site Specialist Relationship Specialty Start Date End Date Nehemiah Ulloa MD PCP - General Internal Medicine 01/14/22
--- OUTSIDE RECORDS SUMMARY | 2024-11-24 14:39 | XMS_ITS | Continuity of Care Document ---
Author Organization [facility] Address [address] [place] [address] [place] [address] Phone Care Team Providers Care Speech Instructor Name Role Phone David Flood MD Unavailable Unavailable Allergies, Adverse Reactions, Alerts Substance Reaction Status Criticality No Known Allergies Active No Inform ation Medications Medication Instructions Dosage Effective Dates (start - stop) Status Comments Valium 5 mg tablet take 1 tablet by oral route 2 times every day as needed 5 MG - Active PRN for musc le pain, avoid driving or operate machines fenofibrate 160 mg tablet take 1 tablet by oral route every day 160 MG - Active [place] 10 mg-325 mg tablet take 1 by Oral route 4 times every day as needed 1 - Active avoid driving or operate machines, omeprazole 20 mg capsule,delayed release take 1 [...] Diagnoses Date Provider Providers Copied on Encounter [facility], [address], [place], [place], [address], [place] tel:[phone] [facility] No Information 7 Remigio Hernandez. [address], [place], [place], [address] , [place]. tel:[phone] Referring Provider: David Flood, [address], [place], [place], [address]. tel:[phone] OFFICE/OUTPA TIENT VISIT, EST [facility], [address], [place], [place], [address], [place] tel:[phone] [facility] chronic pain1 (chief complaint) HLP (chief complaint) thyroid ndoule1 (chief complaint) Thyroid noduleHyperlipidemi aChronic pain syndrome Remigio Hernandez. [address], [place], [place], [address] , [place]. tel:[phone] Referring Provider: Haim Garrison [address], [place], [place], [address]. tel:[phone] OFFICE/OUTPA TIENT VISIT, EST [facility], [address], [place], [place], [address], [place] tel:[phone] [facility] chronic pain (chief complaint) hanson (chief complaint) Chronic pain syndromeBarrett's esophagus without dysplasia 7 Remigio Hernandez. [address], [place], [place], [address] , [place]. tel:[phone] Referring Provider: Haim Garrison [address], [place], [place], [address]. tel:[phone] OFFICE/OUTPA TIENT VISIT, EST [facility], [address], [place], [place], [address], [place] tel:[phone] [facility] anxiety1 (chief complaint) chronic pain (chief complaint) Chronic pain syndromeThyroid nodule 6 Remigio Hernandez. [address], [place], [place], [address] , [place]. tel:[phone] Referring Provider: [address], [place], [place], [address]. tel:[phone] OFFICE/OUTPA TIENT VISIT, [facility], [address], [place], [place], [address], [place] tel:[phone] [facility] itchy (chief complaint) thyroid nodule (chief complaint) HLP (chief complaint) chronic pain (chief complaint) Chronic pain syndromeThyroid noduleRashHyperlipi demia 6 Remigio Hernandez. [address], [place], [place], [address] , [place]. tel:[phone] Referring Provider: Haim [address], [place], [place], [address]. tel:[phone] OFFICE/OUTPA TIENT VISIT, [facility], [address], [place], [place], [address], [place] tel:[phone] [facility] chronic pain (chief complaint) thyroid nodule (chief complaint) tobacco1 (chief complaint) GERD1 (chief complaint) Chronic pain syndromeThyroid noduleBarrett's esophagus without dysplasiaBody mass index (BMI) 30.0-30.9, adult 6 Remigio Hernandez. [address], [place], [address] , [place]. tel:[phone] Referring Provider: Haim Garrison [address], [place], [place], [address]. tel:[phone] OFFICE/OUTPA TIENT VISIT, [facility], [address] [place], [address], [place] tel:[phone] [facility] chronic pain (chief complaint) HLP (chief complaint) anxiety1 (chief complaint) tobacco (chief complaint) Chronic pain syndromeHyperlipide miaGeneralized Anxiety DisorderTobacco use 6 Remigio Hernandez. [address], [place], [place], [address] , . tel:[phone] Referring Provider: Haim G[address], [place], [place], [address]. tel:[phone] OFFICE/OUTPA TIENT VISIT, [facility], [address], [place], [place], [address], [place] tel:[phone] [facility] chronic pain1 (chief complaint) tobacco (chief complaint) HLP (chief complaint) Hanson (chief complaint) Hanson's esophagus without dysplasiaHyperlipid emiaTobacco useChronic pain syndrome Sep-0 6 Remigio Hernandez. [address], [place], [place], [address] , [place]. [phone] Referring Provider: Haim G[address], [place], [place], [address]. tel:[phone] OFFICE/OUTPA TIENT VISIT, [facility], [address], [place], [place], [address], [place] tel:[phone] [facility] HLP (chief complaint) chronic pain (chief complaint) GERD1 (chief complaint) HyperlipidemiaChron ic pain syndromeGERD w/o esophagitis 6 Remigio Hernandez. [address], [place], [place], [address] , [place]. [phone] Referring Provider: Haim G[address], [place], [place], [address]. tel:[phone] OFFICE/OUTPA TIENT VISIT, [facility], [address], [place], [place], [address], [place] tel:[phone] [facility] chornic pain1 (chief complaint) HLP (chief complaint) tobacco1 (chief complaint) anxiety1 (chief complaint) Chronic pain syndromeHyperlipide miaTobacco useGeneralized Anxiety Disorder Apr- 6 Remigio Heranndez. [address], [place], [place], [address] , [place]. [phone] Referring Provider: Haim G[address], [place], [place], [address]. tel:[phone] OFFICE/OUTPA TIENT VISIT, [facility], [address], [place], [place], [address], [place] [phone] [facility] hLP (chief complaint) low D (chief complaint) abd pain (chief complaint) chronic pain (chief complaint) HyperlipidemiaAbdom inal painGERD w/o esophagitisChronic pain syndrome Everardo- 6 Remigio Hernandez. [address], [place], [place], [address] , [place]. [phone] Referring Provider: Haim G[address], [place], [place], [address]. tel:[phone] OFFICE/OUTPA TIENT VISIT, [facility], [address], [place], [place], [address], [place] tel:[phone] [facility] chronic pain (chief complaint) GERD1 (chief complaint) abd pain (chief complaint) GERD w/o esophagitisChronic pain syndromeOccult blood in stoolAbdominal pain February- 6 Remigio Hernandez. [address], [place], [place], [address] , [place]. [phone] Referring Provider: Haim G[address], [place], [place], [address]. tel:[phone] PREV VISIT, NEW, AGE 40-64 [facility], [address], [place], [place], [address], [place] [phone] [facility] chronic pain (chief complaint) anxiety (chief complaint) Physical (chief complaint) Chronic pain syndromeEncounter for general adult medical exam w abnormal findingsGeneralized anxiety disorder Jan- 6 Remigio Hernandez. [address], [place], [place], [address] , [place]. tel:[phone] Referring Provider: Haim G[address], [place], [place], [address]. tel:[phone] Family History Family Member Type Diagnosis Age At Onset Mother Problem (finding) renal Brother Problem (finding) Alive and well Mother Problem (finding) Father Problem (finding) Father Problem (finding) Coronary artery disease 45 Payers Payer name Insurance type Covered green party ID Authoriza tion(s) No Information Social History [...] and he is actually seeing neurology in [place] and is getting pain injection around his [...] give him pain medication? Pt [facility] pain management. Pt is taking norco for [...] bladder control. Pt was seeing doctor in [place] for pain management but was told to find new MD since his condition was too complicated for her?? Pt also has difficulty driving to [place], Pt takes up to 6 per day [...]
--- OUTSIDE RECORDS SUMMARY | 2024-11-24 14:39 | XMS_ITS | Clinical Summary ---
Author Organization [facility] Address [address] [place] [address] Phone Care Team Providers Care Bulk Mail Clerk Name Role Phone David Flood Primary Care Provider [phone] Allergies No known active allergies Medications risperiDONE [...] Comments Blood Pressure 135/76 09/23/2016 9:36 AM BOTTOM LINER Pulse 83 09/23/2016 9:36 AM BOTTOM LINER Temperature 36.2 ??C (97.2 ??F) 09/23/2016 9:36 AM CS T Respiratory Rate 16 09/23/2016 9:36 AM BOTTOM LINER Oxygen Saturation 98% 09/23/2016 9:36 AM BOTTOM LINER Inhaled Oxygen Concentration - - Weight 78.9 [...] MEDICAID [employer] [place] [id number] Care Teams Bulk Mail Clerk Relationship Specialty Start Date End Date David Flood [address] [place] [address] PCP - General Family Medicine 06/18/16
--- OUTSIDE RECORDS SUMMARY | 2024-11-24 14:39 | XMS_ITS | Data Portability ---
Author Organization [facility] Address [address] [place] [address] Care Team Providers Care Fiscal Assistant Name Role Phone [facility] [employer] Processing Technician Assessment Encounter Date Assessment Date Assessment LastModified [...] for follow-up to Dr. Jorge Shipley's office. Not available 01/11/2019 18:50:37 02/28/2019 02/28/2019 Patient presente d for medication refill. Patient tolerating medication well at current dose without adverse effects. Refilled as below. Discussed plan with patient, who expressed understanding. Follow up as noted below. [email or web address] Not available 02/28/2019 12:25:31 04/12/2019 04/12/2019 Patient [...] shoulder. No medication refills at this time [email or web address] Not available 04/12/2019 17:43:58 Plan of Treatment [...] to discuss this with you. [address], [address] [facility] [address], [place], [address], 9 14:41:55 ENT referral 2018 019 [email or web address] Cornell Angel MD, [address] [facility], [address], [place], [address], 9 10:50:47 Procedures subacromia l injection (PROC) [address] (Infusion), [address], [place], [address], 9 17:56:51 injection, shoulder, fluoro guidance (PROC) [address] (Infusion), [address], [place], [address], 9 17:56:50 injection, shoulder, fluoro guidance (PROC) [address] (Infusion), [address], [place], [address], 9 13:26:00 Surgeries cervical spine surgery (SURG) 2018 019 [place] [address] Brayden Shipley MD, [address], [place] [address], [place], [address], 9 11:07:13 Imaging MRI, shoulder, w/o contrast [address] - Imaging, [address], [place], [address], 9 17:53:46 MRI, shoulder, w/o contrast [address] - Imaging, [address], [place], [address], 9 17:53:46 Medication Orders hydrocodon e 10 mg-acetami nophen 325 mg tablet 2018 019 [facility] [address], [address] [place], [address], 9 13:25:46 hydrocodon e 10 mg-acetami nophen 325 mg tablet 2018 019 [facility] [address], 100 [facility], [place], [address], 9 14:33:29 hydrocodon e 10 mg-acetami nophen 325 mg tablet 2018 019 [facility] [address], [address] [place], [address], 9 18:52:14 Kenalog 40 mg/mL suspension for injection 2018 019 [email or web address] 61 [facility] [address], [address] [place], [address], 9 12:50:01 Augmentin 875 mg-125 mg tablet 2018 019 [email or web address] [facility] [address], [address] [place], [address], 9 17:10:22 omeprazole 40 mg capsule,de layed release 2018 019 INTERFACE [facility] [address], [address] [place], [address], 12:37:33 famotidine 40 mg tablet 2018 INTERFACE [facility] [address], [address] [place], [address], 12:37:29 Patient TargetsNo targets recorded. Patient Instructions Encounter Date Encounter Id Patient Instructions Last Modified By Organization Details Last Modified Time 02/28/2019 [id number] Take prescriptio ns as directed. Return to clinic as needed. [email or web address] Not available 02/28/2019 20:20:56 Discussed with patient the adverse side affects of famotidine and omeprazole. Patient states that he has been on both medications for years. He states that if he does not take either medication he vomits bile and mucus due to increased acid in stomach. Patient verbalizes long-term affect of the medications wishes to continue treatment. [email or web address] Not available 02/28/2019 20:20:36 Reason for Referral [...] contr ast No observ ation record ed. [address] - Imaging [address], [place], [address], 03/01/2019 16:39:08 02/29/20 19 12/12/2018 MRI, shoul kezia, w/o contr ast No observ ation record ed. [address] - Imaging [address], [place], [address], 03/01/2019 16:39:09 Result Notes None recorded. Problems Name Problem SNOMED Code Status Onset Date Resolution Date Notes Provider Name and Address Organization Details Recorded Time Gastroesoph ageal reflux disease 830813600 Active 2017 Yue Horneiano [facility] 8 14:18:41 Chronic neck pain 8793083552967 Active 2017 Yuegabrielle Horneiano [facility] 8 14:20:28 Low back pain 952448793 Active 2017 Yue Art [facility] 8 14:20:39 Acute sciatica 498863828 Active 2017 Yuegabrielle Art [facility] 8 14:20:53 Neuropathy 821169850 Active 2017 Yue Art [facility] 8 14:21:08 Anxiety 06080517 Active 2017 Yuegabrielle Horneiano [facility] 8 14:21:26 Schizoaffec tive disorder 27322728 Active 2017 Yue Art [facility] 8 14:21:43 Insomnia 678746103 Active 2017 Yue Art [facility] 8 14:21:50 Disorder of the larynx 60424022 Active 2017 Yue Art [facility] 8 14:26:47 History of depression 275630814 Active 2017 Diya Michelle maxim [facility] 8 15:21:27 Displacemen t of cervical interverteb ral disc without myelopathy 30558286 Active 2017 Fred Schuster [facility] 8 15:42:09 Cervical disc disorder with radiculopat hy 572421222 Active 2017 Fred Schuster [facility] 8 15:42:10 Lumbar radiculopat hy 905981406 Active 2017 Fred Schuster [facility] 8 15:42:11 Spinal stenosis of lumbar region 48583477 Active 2017 Fred Schuster [facility] 8 15:42:12 Lumbar disc prolapse with radiculopat hy 361878876 Active 2017 Fred Schuster [facility] 8 15:42:37 Long-term current use of opiate analgesic drug 0036679505527 08 Active 2017 Inder Vincent [facility] 8 18:39:56 Chronic pain syndrome 877557771 Active 2017 Dima Reina [facility] 8 17:06:08 Lumbar spondylosis 981749466 Active 2017 Fred Schuster [facility] 8 15:02:59 Hand muscle weakness 999324131 Active 2017 Fred Schuster [facility] 8 14:02:06 Problem Notes None recorded. Procedures Surgical History Date Name Laterality Status Provider Name and Address Organization Details Recorded Time 2 Arthrd ant ntrbd min dsc crv completed [facility] 06/23/2018 14:10:58 0 Back Surgery completed [facility] 06/23/2018 14:09:00 3 Unlisted procedure shoulder completed [facility] 06/23/2018 14:09:46 Imaging Results Imaging Date Name Status LastModified by Organiz ation Details LastModified Time 12/12/2018 MRI, shoulder, w/o contrast completed [address] - Imaging [address], [place], [address], 03/01/2019 16:39:08 12/12/2018 MRI, shoulder, w/o contrast completed [address] - Imaging [address], [place], [address], 03/01/2019 16:39:09 Procedure Notes None recorded. Medical [...] Updated DateTime 9 162.56 cm 30.9 kg/m2 03875.6 3 g 97.4 [degF] 70 /min 95 % 95 % 142 mm[Hg] 92 mm[Hg] [facility] 9 12:35:15 Date Recorded Body height Body mass index (BMI) Body weight Body temperature Heart rate Oxygen saturation Oxygen saturation in Arterial blood by Pulse oximetry Systolic blood pressure Diastolic blood pressure Provider Name and Address Organization Details Last Updated DateTime 9 162.56 cm 30.9 kg/m2 84738.6 3 g 96.8 [degF] 87 /min 97 % 97 % 132 mm[Hg] 80 mm[Hg] Lashay [facility] 9 14:00:04 Date Recorded Body height Body mass index (BMI) Body weight Body temperature Heart rate Oxygen saturation Oxygen saturation in Arterial blood by Pulse oximetry Systolic blood pressure Diastolic blood pressure Provider Name and Address Organization Details Last Updated DateTime 9 162.56 cm 30.9 kg/m2 65514.6 3 g 97.8 [degF] 82 /min 98 % 98 % 128 mm[Hg] 78 mm[Hg] [facility] 9 18:10:01 Date Recorded Body height Body mass index (BMI) Body weight Body temperature Heart rate Respiratory rate Oxygen saturation Oxygen saturation in Arterial blood by Pulse oximetry Systolic blood pressure Diastolic blood pressure Provider Name and Address Organization Details Last Updated DateTime 9 167.64 cm 28.9 kg/m2 82257.0 3 g 98.7 [degF] 78 /min 18 /min 97 % 97 % 120 mm[Hg] 80 mm[Hg] Debbie Caceres [facility] 9 12:13:19 Date Recorded Body height Body mass index (BMI) Body weight Body temperature Heart rate Oxygen saturation Oxygen saturation in Arterial blood by Pulse oximetry Systolic blood pressure Diastolic blood pressure Provider Name and Address Organization Details Last Updated DateTime 9 167.64 cm 27 kg/m2 65140.9 3 g 96.3 [degF] 81 /min 98 % 98 % 134 mm[Hg] 88 mm[Hg] Lashay Patch [facility] 9 17:10:14 Social History Question Answer Notes LastModified by Organizat ion Details LastModified Time Tobacco Smoking Status Current Every Day Smoker Deloris Hamptonmichelle morejon, [facility] 06/23/2018 14:08:12 Do You Have An Advance Directive? No [email or web address] Information not available 02/28/2019 What Is Your Level Of Alcohol Consumption? None [email or web address] Information not available 07/27/2018 If You Are , What Was Your Level Of Alcohol Consumption Prior To ? None [email or web address] Information not available 02/28/2019 Is Anesthesia Consult Planned? No [email or web address] Information not available 02/28/2019 Plan No [email or web address] Information not available 02/28/2019 Is Blood Transfusion Acceptable In An Emergency? No Information not available 02/28/2019 What Is Your Level Of Caffeine Consumption? Occasional Information not available 02/28/2019 Live With Cats/exposure To Cat Litter No [email or web address] Information not available 02/28/2019 How Much Tobacco Do You Chew? None [email or web address] Information not available 02/28/2019 Are You Currently Employed? No [email or web address] Information not available 02/28/2019 What Type Of Diet Are You Following? REGULAR Information not available 02/28/2019 Which Illicit Or Recreational Drugs Have You Used? Marijuana [email or web address] Information not available 07/27/2018 Education 2 Year College [email or web address] Information not available 02/28/2019 What Is Your Occupation? DISABLED [email or web address] Information not available 02/28/2019 Have There Been Any Changes To Your Family Or Social Situation? No [email or web address] Information not available 02/28/2019 Frequent Air Travel No [email or web address] Information not available 02/28/2019 Are There Any Guns Present In Your Home? No Information not available 02/28/2019 Hard Of Hearing Or Deaf In One Or Both Ears? No [email or web address] Information not available 02/28/2019 Legally Blind In One Or Both Eyes? No [email or web address] Information not available 02/28/2019 Live Alone Or With Others? With Others [email or web address] Information not available 02/28/2019 Marital Status Single maru Informat ion not available 02/28/2019 What Was The Date Of Your Most Recent Tobacco Screening? 02/28/2019 Information not available 05/19/2019 How Many Children Do You Have? 2 [email or web address] Information not available 02/28/2019 Performs Monthly Self-breast Exam? No [email or web address] Information not available 02/28/2019 Seat Belts Used Routinely Yes Information not available 02/28/2019 Are You Sexually Active? Yes Information not available 02/28/2019 Smoke Alarm In Home Yes [email or web address] Information not available 02/28/2019 Do You Have Smoke And Carbon Monoxide Detectors In Your Home? Yes [email or web address] Information not available 02/28/2019 Are You Passively Exposed To Smoke? Yes Information not available 02/28/2019 How Much Tobacco Do You Smoke? 1 PPD Information not available 06/23/2018 Smoking Pre- No [email or web address] Information not available 02/28/2019 General Stress Level Low [email or web address] Information not available 02/28/2019 Do You Use Sunscreen Routinely? No [email or web address] Information not available 02/28/2019 How Many Years Have You Smoked Tobacco? 25 Information not available 06/23/2018 Do You Have Symptoms Associated With Zika Virus (fever, Rash, Joint Pain, Or Conjunctivitis) ? No [email or web address] Information not available 02/28/2019 Have You Recently (within The Last 12 Weeks, Or During A Current ) Traveled To Or Lived In A Zika-affected Area? No Information not available 02/28/2019 Sex: Unknown Functional Status Question Answer Note LastModified by Organization D etails LastModified Time Are you able to care for yourself? Yes [email or web address] Information n ot available 02/28/2019 What is your exercise level? None [email or web address] Information not available 02/28/2019 Mental Status None recorded. Family History Relationship Description Onset Age of this Age Resolved Age Notes LastModified by Organization Details LastModified Time Mother Heart disease brhines Not available 2017 14:07:33 Mother Hyperlipidem ia brhines Not available 2017 14:07:46 Mother Kidney disease brhines Not available 2017 14:08:01 Medical History Condition Response Muscle, Joint, or Bone Problems Y Reflux/GERD Y GI Problems Y Past Encounters Encounter ID Performer Location Encounter Start Date Encounter Closed Date Diagnosis/Indication Diagnosis SNOMED-CT Code Diagnosis ICD10 Code Diagnosis Note [id number] [place] [address] [place] [address] 06/28/2018 15:40:48 06/28/2018 16:10:51 Chronic neck pain 1290875900 107 M54.2 Low back pain 309416717 M54.5 Anxiety 71638158 F41.9 Schizoaffe ctive disorder 52829261 F25.9 Fatigue 86428746 R53.83 [id number] [place] [address] [place] [address] 07/12/2018 12:07:39 07/12/2018 12:30:46 Low back pain 813598245 M54.5 F/U 2 weeks for MRI rersult Neuropathy 595048346 G62 .9 Hypertriglyceridemia 302 228586 E78.2 Lumbar radiculopathy 128 829587 M54.16 [id number] Inder Vincent [address] [place] [address] 07/27/2018 13:47:31 07/27/2018 15:58:33 Displacement of cervical intervertebral disc without myelopathy 19444604 M50.20 Cervical d isc disorder with radiculopathy 032760372 M50.10 Lumbar radiculopathy 128 386678 M54.16 Spinal joshua nosis of lumbar region 02530671 M48.061 Lumbar dis c prolapse with radiculopathy 786966934 M51.16 Long-term current use of opiate analgesic drug 7133231341 82969 Z79.891 [id number] Dima LOZ[address] [place] [address] [place] [address] 08/04/2018 16:38:12 08/04/2018 17:38:20 Chronic neck pain 7093983056 107 M54.2 see's pain mgmt Lumbar dis c prolapse with radiculopathy 467889468 M51.16 Spinal joshua nosis of lumbar region 01780198 M48.061 Cervical d isc disorder with radiculopathy 780443939 M50.10 Neuropathy 887364846 G62 .9 Chronic pain syndrome 37 2545735 G89.4 Atypical chest pain 1025 09136 R07.89 Pruritic disorder 668553 002 L29.9 [id number] Fred [facility] [address] [place] [address] 08/17/2018 13:49:45 08/17/2018 15:10:26 Displacement of cervical intervertebral disc without myelopathy 46192126 M50.20 Cervical d isc disorder with radiculopathy 804550426 M50.10 Lumbar radiculopathy 128 788314 M54.16 Spinal joshua nosis of lumbar region 68605039 M48.061 Lumbar dis c prolapse with radiculopathy 432222183 M51.16 Long-term current use of opiate analgesic drug 3038720223 43186 Z79.891 Lumbar spondylosis 83851 0009 M47.26 [id number] Fred GRAMAJO [address] [place] [address] 09/21/2018 13:39:29 09/21/2018 15:11:56 Displacement of cervical intervertebral disc without myelopathy 86373862 M50.20 Cervical d isc disorder with radiculopathy 649888422 M50.10 Lumbar radiculopathy 128 018859 M54.16 Spinal joshua nosis of lumbar region 48842388 M48.061 Lumbar dis c prolapse with radiculopathy 858009027 M51.16 Long-term current use of opiate analgesic drug 1767169971 38950 Z79.891 Lumbar spondylosis 79903 0009 M47.26 [id number] Fred MARS [address] [place] [address] 10/12/2018 12:43:00 10/12/2018 14:06:37 Displacement of cervical intervertebral disc without myelopathy 71772100 M50.20 Cervical d isc disorder with radiculopathy 097243580 M50.10 Lumbar radiculopathy 128 117383 M54.16 Spinal joshua nosis of lumbar region 96095885 M48.061 Lumbar dis c prolapse with radiculopathy 351001455 M51.16 Long-term current use of opiate analgesic drug 4756337225 24537 Z79.891 Lumbar spondylosis 29360 0009 M47.26 Hand muscle weakness 298 124879 M62.81 [id number] Fred Schuster [address] [place] [address] 11/16/2018 12:31:38 11/16/2018 13:28:42 Displacement of cervical intervertebral disc without myelopathy 73497702 M50.20 Cervical d isc disorder with radiculopathy 858542429 M50.10 Lumbar radiculopathy 128 643756 M54.16 Spinal joshua nosis of lumbar region 38839563 M48.061 Lumbar dis c prolapse with radiculopathy 094138164 M51.16 Long-term current use of opiate analgesic drug 9419612468 35338 Z79.891 Lumbar spondylosis 06576 0009 M47.26 Hand muscle weakness 298 093458 M62.81 Adhesive c apsulitis of shoulder 202788152 M75.01 Impingemen t syndrome of shoulder region 123922091 M75.42 [id number] Fred Schuster [facility] MADISYN [address] [place] [address] 12/14/2018 13:40:36 12/14/2018 14:58:04 Displacement of cervical intervertebral disc without myelopathy 72650991 M50.20 Cervical d isc disorder with radiculopathy 985471165 M50.10 Lumbar radiculopathy 128 015452 M54.16 Spinal joshua nosis of lumbar region 37479356 M48.061 Lumbar dis c prolapse with radiculopathy 521978353 M51.16 Long-term current use of opiate analgesic drug 8030724247 90275 Z79.891 Lumbar spondylosis 52565 0009 M47.26 Hand muscle weakness 298 799418 M62.81 Adhesive c apsulitis of shoulder 199412411 M75.01 Impingemen t syndrome of shoulder region 409112921 M75.42 Central convulsion 47510 005 R56.9 [id number] Fred MARS [address] [place] [address] 01/11/2019 17:52:38 01/11/2019 18:53:26 Displacement of cervical intervertebral disc without myelopathy 22826039 M50.20 Cervical d isc disorder with radiculopathy 367131180 M50.10 Lumbar radiculopathy 128 765321 M54.16 Spinal joshua nosis of lumbar region 25423670 M48.061 Lumbar dis c prolapse with radiculopathy 311749409 M51.16 Long-term current use of opiate analgesic drug 1656703620 84730 Z79.891 Lumbar spondylosis 43061 0009 M47.26 Hand muscle weakness 298 896187 M62.81 Adhesive c apsulitis of shoulder 955948640 M75.01 Impingemen t syndrome of shoulder region 609356314 M75.42 Central convulsion 05448 005 R56.9 [id number] Inder TracyKEYANNA [facility] [address] [place] [address] 02/28/2019 11:59:39 02/28/2019 12:59:09 Gastroesophageal reflux disease 257937803 K21.9 Renewal of prescription 783228014 Z76.0 Acute sinusitis 83712907 J01.90 [id number] Fred MARS [facility] [place] [address] [place] [address] 04/12/2019 17:04:06 04/12/2019 18:06:38 Displacement of cervical intervertebral disc without myelopathy 59111353 M50.20 Cervical d isc disorder with radiculopathy 616611833 M50.10 Lumbar radiculopathy 128 665579 M54.16 Spinal ojshua nosis of lumbar region 64651401 M48.061 Lumbar dis c prolapse with radiculopathy 165652674 M51.16 Long-term current use of opiate analgesic drug 4121839236 27688 Z79.891 Lumbar spondylosis 59831 0009 M47.26 Hand muscle weakness 298 462606 M62.81 Adhesive c apsulitis of shoulder 675016111 M75.01 Impingemen t syndrome of shoulder region 345227344 M75.42 Central convulsion 65750 005 R56.9 Health Concerns Section Related Observation LastModified by Organization Detai ls LastModified Time None Recorded Concern Status LastModified by Organization Details LastModified Time None Recorded Advance Directives Directive N: Payers Encounter Date Sequence Insurance Name Policy Number Policy [place] Covered Member ID [place] Member ID Guarantor Name 11/16/2018 1 [place] Sam Perezon [id number] Samernie McleanRosenthal 12/14/2018 1 [place] Sam Perezon [id number] Sam Mcleanguson 01/11/2019 1 [place] Samernie McleanRosenthal [id number] Sam Rosenthal 02/28/2019 1 [place] Sam Mcleanguson [id number] Sam Rosenthal 04/12/2019 1 [place] Sam Perezon [id number] Sam Perezon Notes Date Note Type Note [...] patient reported that he completed here at [facility] just a few days ago. 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 Inder Balderasnaz morejon, [facility] 02/28/2019 20:21:02 04/12/2019 text/html Patient presente d today requesting repeat bilateral shoulder injections. Reports that he is otherwise stable we will update his controlled medication that they prescribed and he has been is continued on overdose and use of appropriate Narcan use Jorje Young caregiver and girlfriend here today and she was also educated. he has not Use the [place] approximately 3 weeks as he is reporting [...] ETOH and amount: Denies use Fred Schuster [facility] 04/12/2019 17:44:30
--- OUTSIDE RECORDS SUMMARY | 2024-11-24 14:39 | XMS_ITS | Referral Summary ---
Author Organization [facility] Address [address] [place] [address] Care Team Providers Care Plug Cutter Name Role Phone Nehemiah Ulloa MD Primary Care Provider [phone] Encounters Date Type Department Care Team Description 11/16/2024 9:00 AM DIESEL TRUCK MECHANIC Office Visit [facility] Medical [facility] Orthopedics and Sports Medicine [address] [place] [address] [address] [place] [address] Cristobal Lowe MD Acute pain of right shoulder (Primary Dx); Smoker; Nontraumatic complete tear of right rotator cuff 11/05/2024 9:38 PM DIESEL TRUCK MECHANIC - 11/05/2024 10:28 PM DIESEL TRUCK MECHANIC Emergency [facility] Emergency Department [address] [place] [address] Zeus Brink MD Acute pain of right shoulder (Primary Dx); Acute left ankle pain; Anal pain Discharge Disposition: Discharge to home or self care 10/31/2024 Telephone [facility] Orthopedics and Sports Medicine [address] [place] [address] [address] [place] [address] Cristobal Lowe MD sooner appointment 09/27/2024 2:05 PM DIESEL TRUCK MECHANIC - 09/27/2024 11:59 PM DIESEL TRUCK MECHANIC Hospital Encounter [facility] ([facility]) [address] [place] [id number] Acute pain of right shoulder Discharge Disposition: Discharge to home or self care 09/05/2024 12:37 PM DIESEL TRUCK MECHANIC - 09/05/2024 11:59 PM DIESEL TRUCK MECHANIC Hospital Encounter [facility] Emergency, Room R Discharge Disposition: Discharge to home or self care 09/05/2024 1:07 PM DIESEL TRUCK MECHANIC - 09/05/2024 4:24 PM DIESEL TRUCK MECHANIC Emergency [facility] Emergency Department [address] [place] [address] Osvaldo Voss MD Suicidal ideation (Primary Dx) Discharge Disposition: Discharge to home or self care 08/28/2024 9:05 AM DIESEL TRUCK MECHANIC - 08/28/2024 11:59 PM DIESEL TRUCK MECHANIC Hospital Encounter [facility] [address] [place] [address] Acute pain of right shoulder Discharge Disposition: Discharge to home or self care 08/28/2024 9:15 AM DIESEL TRUCK MECHANIC Office Visit [facility] Orthopedics and Sports Medicine [address] [place] [address] [address] [place] [address] Talia Lubin PA Acute pain of right [...] (07/10/2022): Added automatically from request for surgery [id number] Instability of left shoulder joint 02/09/2022 Overview (02/09/2022): Added automatically from request for surgery [id number] Nontraumatic complete tear of left rotator cuff 02/09/2022 Overview (02/09/2022): Added automatically from request for surgery [id number] Cervical facet syndrome 06/19/2016 Cervical vertebral fusion [...] on file Legal Sex Male 10:12 AM DIESEL TRUCK MECHANIC Gender Identity Not on file Sexual Orientation Not on file Last Filed Vital Signs Vital Sign Reading Time Taken Comments Blood Pressure 141/77 11/05/2024 9:37 PM DIESEL TRUCK MECHANIC Pulse 84 11/05/2024 9:37 PM DIESEL TRUCK MECHANIC Temperature 36.9 ??C (98.5 ??F) 11/05/2024 9:37 PM CS T Respiratory Rate 20 11/05/2024 9:37 PM DIESEL TRUCK MECHANIC Oxygen Saturation 100% 11/05/2024 9:37 PM DIESEL TRUCK MECHANIC Inhaled Oxygen Concentration - - Weight 76.2 kg (168 lb) 11/16/2024 9:10 AM DIESEL TRUCK MECHANIC Height 167.6 cm (5' 6 ) 11/16/2024 9:10 AM DIESEL TRUCK MECHANIC Body Mass Index 27.12 11/16/2024 9:10 AM DIESEL TRUCK MECHANIC Plan of Treatment Not on file Medical Devices Implanted Type Area Technician Anatomic Pathology Device Identifier Shelf Expiration Date Model / Serial / Lot Cervical Spine Fusion Instrumentation Spine Cervical Lt Shoulder Bicept And Cuff Reattachment Anchors Left: Shoulder Depuy Synthes Spine Symphony 4mm Spine Occipitocervicothoracic Short Lateral Offset [id number] - [id number] Implanted:Qty: 1 on 08/24/2022 by Monico Ramon MD at [facility] N/A: Spine Cervical Depuy Synthes Spine [id number] / / Depuy Synthes Spine 3.5mm 14mm Ply Spine Screw Bone Nonsterile 4mm Kenny [id number] - [id number] Implanted:Qty: 7 on 08/24/2022 by Monico Ramon MD at [facility] N/A: Spine Cervical Depuy Synthes Spine [id number] / / Depuy Synthes Spine 4mm 240mm Straight Kenny Spinal Titanium [id number] - [id number] Implanted:Qty: 2 on 08/24/2022 by Monico Ramon MD at [facility] N/A: Spine Cervical Depuy Synthes Spine [id number] / / Depuy Synthes Spine 4.5mm 26mm Ply Spine Pedicle Screw Bone Nonsterile 4mm Kenny [id number] - [id number] Implanted:Qty: 3 on 08/24/2022 by Monico Ramon MD at [facility] N/A: Spine Cervical Depuy Synthes Spine [id number] / / Depuy Synthes Spine [id number] Set Screw - [id number] Implanted:Qty: 14 on 08/24/2022 by Monico Ramon MD at [facility] N/A: Spine Cervical Depuy Synthes Spine [id number] / / Depuy Synthes Spine 5.5mm 30mm Ply Spine Pedicle Screw Bone Nonsterile 4mm Kenny [id number] - [id number] Implanted:Qty: 4 on 08/24/2022 by Monico Ramon MD at [facility] N/A: Spine Cervical Depuy Synthes Spine [id number] / / Medtronic [employer] Bmp Infuse Sm [id number] - [id number] Implanted:Qty: 1 on 08/24/2022 by Monico Ramon MD at [facility] N/A: Spine Cervical Medtronic Inc 10/25/2024 [id number] / / [id number] Allosource 1-4mm Freeze Dried Crushed Graft 30ml Bone Cancellous [id number] - [id number] Implanted:Qty: 1 on 08/24/2022 by Monico Ramon MD at [facility] N/A: Spine Cervical Allosource 08/03/2026 [id number] / / [id number] Procedures Procedure Name Priority Date/Time Associated Diagnosis Comments MRI SHOULDER RIGHT WO CONTRAST Schedule Routine, Read Routine (OP Routine) 09/27/2024 2:50 PM DIESEL TRUCK MECHANIC Acute pain of right shoulder EGFR STAT 09/05/2024 1:28 PM DIESEL TRUCK MECHANIC DIFFERENTIAL AUTO STAT 09/05/2024 1:2 8 PM DIESEL TRUCK MECHANIC ETHANOL STAT 09/05/2024 1:28 PM DIESEL TRUCK MECHANIC THYROID FUNCTION CASCADE STAT 09/05/2024 1:28 PM DIESEL TRUCK MECHANIC COMPREHENSIVE METABOLIC PANEL STAT 09/05/2024 1:28 PM DIESEL TRUCK MECHANIC CBC WITH AUTO DIFFERENTIAL STAT 09/05/2024 1:28 PM DIESEL TRUCK MECHANIC COVID-19 CORONAVIRUS RNA Routine 09/05/2024 1:28 PM DIESEL TRUCK MECHANIC DRUGS OF ABUSE SCREEN, URINE WITHOUT CONFIRMATION STAT 09/05/2024 1:22 PM DIESEL TRUCK MECHANIC URINALYSIS AND REFLEX TO MICROSCOPIC AND CULTURE STAT 09/05/2024 1:22 PM DIESEL TRUCK MECHANIC XR SHOULDER RIGHT 2 OR MORE VIEWS Schedule Routine, Read Routine (OP Routine) 08/28/2024 9:30 AM DIESEL TRUCK MECHANIC Acute pain of right shoulder from Last 3 Months Results * MRI Shoulder Right WO Contrast (09/27/2024 2:50 PM DIESEL TRUCK MECHANIC) Anatomical Region Laterality Modality Upper Extremities Right Magnetic Reson ance 09/27/2024 3:58 PM DIESEL TRUCK MECHANIC Impressions 09/27/2024 4:06 PM DIESEL TRUCK MECHANIC 1. Right rotator cuff tendinopathy with massive, [...] Avni Rivers M.D. Narrative 09/27/2024 4:06 PM DIESEL TRUCK MECHANIC EXAMINATION: 1. MRI right shoulder without contrast [...] COVID-19 Coronavirus RNA Nasopharyngeal (09/05/2024 1:28 PM DIESEL TRUCK MECHANIC) COVID-19 RNA Negative Negative Nasopharyngeal 09/05/2024 1: 28 PM DIESEL TRUCK MECHANIC 09/05/2024 1:34 PM DIESEL TRUCK MECHANIC Narrative [facility] - 09/05/2024 2:06 PM DIESEL TRUCK MECHANIC Is the patient experiencing any symptoms consistent with COVID (eg. Fever, cough, shortness of breath)?->No What is the reason for testing?->Screening prior to [facility] health admission ??Interpretive data: Testing performed by [facility]. ??This test is performed using the [employer]Ed Online Doctor Xpert Xpress CoV-2 plus assay. This is a real-time RT-PCR test intended for the qualitative detection of nucleic acid from the SARS-CoV-2. This assay has been cleared by the [place] Food and Drug administration. The performance characteristics have been verified by [facility]. ??Results must be considered in the clinical context, and a negative result does not rule out infection. Interpretive data last revised 2024. Osvaldo Voss MD LAB MICROBIOLOGY - GENERAL O RDERABLES Final Result [facility] [address] [facility] Department [place] [address] * eGFR (09/05/2024 1:28 PM DIESEL TRUCK MECHANIC) eGFR >90 >=60 mL/min/1. 73 m2 Comment: [...] last reviewed 2021. Blood 09/05/2024 1:28 PM DIESEL TRUCK MECHANIC 09/05/2024 1:33 PM DIESEL TRUCK MECHANIC us Osvaldo Voss MD LAB BLOOD ORDERABLES Final R esult [facility] ([place] [address] [facility] Department [place] [address] * Differential, auto (09/05/2024 1:28 PM DIESEL TRUCK MECHANIC) Pathologist [facility] Neutrophil abs 6.4 1.5 - 6.5 K/cumm Imm gran abs 0.0 0.0 - 0.1 K/cumm [facility] ([place]) Lymphocyte abs 2.5 0.8 - 3.3 K/cumm [...] revised on 2018. Blood 09/05/2024 1:28 PM DIESEL TRUCK MECHANIC 09/05/2024 1:33 PM DIESEL TRUCK MECHANIC us Osvaldo Voss MD LAB BLOOD ORDERABLES Final R esult [facility] ([place]) [address] [facility] [place] [address] * Thyroid Function [place] (09/05/2024 1:28 PM DIESEL TRUCK MECHANIC) Pathologist [facility] TSH 1.09 0.30 - 4.20 mcIUnit/mL Blood 09/05/2024 1:28 PM DIESEL TRUCK MECHANIC 09/05/2024 1:33 PM DIESEL TRUCK MECHANIC Osvaldo Voss MD LAB BLOOD ORDERABLES Final R esult [facility] ([place]) [address] [facility] [place] [address] * CBC with auto differential (09/05/2024 1:28 PM DIESEL TRUCK MECHANIC) Pathologist [facility] WBC 9.9 3.8 - [...] NRBC abs 0.00 0.00 - 0.01 K/cumm [facility] Blood (Blood, Venous) 09/05/2024 1:28 PM DIESEL TRUCK MECHANIC 09/05/2024 1:33 PM DIESEL TRUCK MECHANIC Osvaldo Voss MD LAB BLOOD ORDERABLES Final R esult Performing Organization Address City/[facility] [address]/ZIP Co de Phone Number [facility] ([place] [address] [facility] Department [place] [address] * Ethanol (09/05/2024 1:28 PM DIESEL TRUCK MECHANIC) Ethanol <10 <=10 mg/dL Comment: Interpretive Data Legal limit of intoxication > or = 80 mg/dL Levels > or = 400 mg/dL are potentially TOXIC. Current interpretive data was last revised on 2018. Blood 09/05/2024 1:28 PM DIESEL TRUCK MECHANIC 09/05/2024 1:33 PM DIESEL TRUCK MECHANIC Osvaldo Voss MD LAB BLOOD ORDERABLES Final R [facility] Performing Organization Address [facility] [address]/[facility] Co de Phone Number [facility] ([place] [address] [facility] [place] [address] * (ABNORMAL) Comprehensive metabolic panel (09/05/2024 1:28 PM DIESEL TRUCK MECHANIC) Sodium 137 135 - 145 mmol/L Potassium, pl 3.4 3.3 - 4.9 mmol/L [facility] Chloride 101 97 - 110 mmol/L [facility] CO2 25 22 - 32 mmol/L [facility] Anion gap 12 2 - 15 mmol/L [facility] ([place] BUN 5(L) 6 - 25 mg/dL [facility] ([place]) Creatinine 0.70(L) 0.80 - 1.30 mg/dL [facility] ([place]) Glucose 82 70 - 199 mg/dL [facility] ([place]) Comment: Interpretive Data Fasting glucose >/= [...] [facility] Blood 09/05/2024 1:28 PM DIESEL TRUCK MECHANIC 09/05/2024 1:33 PM DIESEL TRUCK MECHANIC us Osvaldo Voss MD LAB BLOOD ORDERABLES Final R esult [facility] ([place] [address] [facility] Department [place] [address] * (ABNORMAL) Urinalysis reflex to microscopic and culture Urine (09/05/2024 1:22 PM DIESEL TRUCK MECHANIC) Color, ur Yellow Yellow Clarity, ur Clear [...] tendency for uric acid stone formation. Source: [facility] [place] Current Interpretive Data was last revised on 2017 Protein, ur ql Trace Negative [facility] ([place] Glucose, ur ql Negative Negative [facility] ([place]) Ketones, ur Negative Negative [facility] ([place]) Bilirubin, ur Negative Negative [facility] ([place] Blood, ur Negative Negative [facility] ([place] Urobilinogen, ur 4.0(A) <2.0 mg/dL [facility] ([place] Nitrite, ur Negative Negative [facility] ([place]) Leukocyte esterase, ur Negative Negative [facility] ([place]) UA reflex comment Reflex conditions for microscopic UA and culture not met. [facility] ([place]) Urine 09/05/2024 1:22 PM DIESEL TRUCK MECHANIC 09/05/2024 1:24 PM DIESEL TRUCK MECHANIC us Osvaldo Voss MD LAB MICROBIOLOGY - GENERAL O RDERABLES Final Result [facility] [address] [facility] Department [place] [address] * (ABNORMAL) Drugs of Abuse Screen, Urine without Confirmation (09/05/2024 1:22 PM DIESEL TRUCK MECHANIC) Amphetamine, ur Screen Positive, presumptive (A) CutOff [...] Not Detected CutOff 25 ng/mL [facility] ([place]) Comment: Interpretive Data - Phencyclidine: ??Samples containing greater than 25 ng/mL phencyclidine or other cross-reacting compounds are reported as positive. ??False positive and false negative results are possible. Confirmatory testing required for definitive results. Current Interpretive Data was last reviewed 2023. Urine Creatinine 202 mg/dL [facility] ([place]) Comment: Interpretive Data Urine Creatinine: < 10 mg/dL is extremely dilute = or > 10 but < 20 mg/dL is dilute = or > 20 mg/dL is normal Current Interpretive Data was last revised on 2018. Urine 09/05/2024 1:22 PM DIESEL TRUCK MECHANIC 09/05/2024 1:24 PM DIESEL TRUCK MECHANIC Narrative [facility] ([place]) - 09/05/2024 1:46 PM DIESEL TRUCK MECHANIC Drug of Abuse screening is performed by immunoassay for medical purposes only. ??This is not to be used for Pain Management purposes. Osvaldo Voss MD LAB URINE ORDERABLES Final R esult [facility] ([place]) [address] [facility] Department [place] [address] * XR Shoulder Right 2 or More Views (08/28/2024 9:30 AM DIESEL TRUCK MECHANIC) Anatomical Region Laterality Modality Upper Extremities, Shoulder Right Comp uted Radiography 08/28/2024 12:3 1 PM DIESEL TRUCK MECHANIC Narrative 08/28/2024 12:37 PM DIESEL TRUCK MECHANIC EXAM DESCRIPTION: XR SHOULDER RIGHT 2 OR [...] D: ??08/28/2024 12:37 PM T: Report ID: [id number] Reading Location: ??[id number] Procedure Note Fred Tafoya MD - 08/28/2024 [...] by Fred Tafoya M.D. T: Report ID: [id number] Reading Location: [id number] [facility] XR PROCEDURES Final R esult from Last 3 Months Insurance MEDICARE SOLUTIONS [facility] MEDICARE Address: [facility] [address] [place] [address] [facility] MDCR HMO REF [facility] MEDICARE Address: [facility] [address] [place] [address] MEDICARE SOLUTIONS Advance Directives For more information, please contact: [phone] * Full Code (Latest Code Status on File) Date Activated Date Inactivated Comments 08/24/2022 5:39 PM 08/26/2022 3:22 PM Care Teams Plug Cutter Relationship Specialty Start Date End Date Nehemiah Ulloa MD PCP - General Internal Medicine 01/14/22
--- OUTSIDE RECORDS SUMMARY | 2024-11-24 14:39 | XMS_ITS | Data Portability ---
Author Organization [facility], Main Office Address [address] [place] [address] Care Team Providers Care Denture Laboratory Technician Name Role Phone BETO DSOUZA Primary Care Provider Assessment No assessment recorded. Plan of Treatment Reminders Order Date Submit Date Provider Last Modified By Organization Details Last Modified Time Details Appointments None recorded. Lab None recorded. Referral None recorded. Procedures None recorded. Surgeries None recorded. Imaging None recorded. Medication Orders ipratropium bromide 42 mcg (0.06 %) nasal spray 2022 023 [id number], [address], [place], [id number], 12:40:30 Patient TargetsNo targets recorded. Patient Instructions Encounter Date Encounter Id Patient Instructions Last Modified By Organization Details Last Modified Time 07/07/2023 [id number] no vocal cord nodule was seen during this examination. There is erythema and edema consistent with a smoking history [email or web address] Not available 07/07/2023 12:40:39 Reason for Referral None Reported. Problems Name Problem SNOMED Code Status Onset Date Resolution Date Notes Provider Name and Address Organization Details Recorded Time Chronic hoarseness 9267279741746 Active 2022 Alf Oropeza MD [address], [place], [address], [facility] 3 12:39:53 Vasomotor rhinitis 6620084 Active 2022 Alf Oropeza MD [address], [place], [address], [facility] 3 12:39:59 Problem Notes None recorded. Procedures Surgical History Date Name Laterality Status Provider Name and Address Organization Details Recorded Time 2 Neck Surgeries completed Berkley Elizabeth RN [place] - [facility] [employer] [facility] 07/07/2023 12:26:29 Imaging Results None recorded. Procedure Notes None recorded. Medical Equipment None Reported. Medications Name Sig Start Date Stop Date Status Note LastModified by Organization Details LastModified Time quetiapine 25 mg tablet TAKE 1/2 TABLET BY MOUTH EVERY DAY AT BEDTIME active Not Available Not Available No t Available cyclobenzap rine 10 mg tablet TAKE 1 TABLET BY MOUTH TWICE DAILY active Not Available Not Available No t Available azithromyci n 250 mg tablet 07/07 completed Not Available Not Available Not Available hydroxyzine HCl 50 mg tablet TAKE 1 TO 2 TABLETS BY MOUTH EVERY DAY NEEDED FOR ANXIETY active Not Available Not Available No t Available omeprazole 40 mg capsule,del ayed release active Not Available Not Available Not Available quetiapine 100 mg tablet TAKE 1/2 TO 1 TABLET BY MOUTH EVERY DAY AT BEDTIME active Not Available Not Available No t Available acetaminoph en 500 mg tablet TAKE 2 TABLETS BY MOUTH EVERY 6 HOURS active Not Available Not Available No t Available amoxicillin 500 mg tablet 07/07 completed Not Available Not Available Not Available lamotrigine 25 mg tablet active Not Available Not Available Not Available oxycodone 15 mg tablet TAKE 1 TABLET BY MOUTH FOUR TIMES DAILY active Not Available Not Available No t Available hydrocortis one 2.5 % topical cream with perineal applicator active Not Available Not Available N ot Available alprazolam 0.5 mg tablet TAKE 1 TABLET BY MOUTH TWICE DAILY active Not Available Not Available No t Available propranolol 10 mg tablet TAKE 1 TABLET BY MOUTH TWICE DAILY active Not Available Not Available No t Available dicyclomine 20 mg tablet TAKE 1 TABLET BY MOUTH FOUR TIMES DAILY active Not Available Not Available No t Available baclofen 10 mg tablet active Not Available Not Available No t Available gabapentin 300 mg capsule TAKE 1 CAPSULE BY MOUTH THREE TIMES DAILY. DISCUSS WITH JUAN GALLEGOS BEFORE STOPPING MEDICATIO N. STOP IF DEVELOP TREMORS active Not Available Not Available No t Available mupirocin 2 % topical ointment APPLY SMALL AMOUNT OF OINTMENT IN EACH NOSTRIL WITH A EVERY-TIP TWICE DAILY FOR 5 DAYS PRIOR TO SURGERY active Not Available Not Available No t Available methylpredn isolone 4 mg tablets in a dose pack FOLLOW PACKAGE DIRECTION S 07/07 completed Not Available Not Available Not Available albuterol sulfate HFA 90 mcg/actuati on aerosol inhaler INHALE 2 PUFFS BY MOUTH EVERY 6 HOURS NEEDED active Not Available Not Available No t Available ipratropium bromide 42 mcg (0.06 %) nasal spray USE 2 SPRAYS IN EACH NOSTRIL THREE TIMES DAILY active Not Available Not Available No t Available hydroxyzine HCl 10 mg tablet TAKE 1 TABLET BY MOUTH EVERY DAY NEEDED FOR ANXIETY active Not Available Not Available No t Available ondansetron 4 mg disintegrat ing tablet DISSOLVE 1 TABLET ON THE TONGUE EVERY 8 HOURS NEEDED FOR NAUSEA OR VOMITING active Not Available Not Available No t Available dicyclomine 10 mg capsule TAKE 1 CAPSULE BY MOUTH THREE TIMES DAILY NEEDED FOR ABDOMINAL PAIN active Not Available Not Available No t Available bupropion HCl XL 150 mg 24 hr tablet, extended release active Not Available Not Available Not Available duloxetine 30 mg capsule,del ayed release TAKE 1 CAPSULE BY MOUTH TWICE DAILY. WEAN OFF BUPROPION . active Not Available Not Available No t Available quetiapine 50 mg tablet TAKE 1 TABLET BY MOUTH EVERY DAY AT BEDTIME active Not Available Not Available No t Available quetiapine 400 mg tablet active Not Available Not Available Not Available cholecalcif wayne (vitamin D3) 1,250 mcg (50,000 unit) capsule TAKE 1 CAPSULE BY MOUTH ONCE MONTHLY. active Not Available Not Available No t Available oxycodone 10 mg tablet TAKE 1 TABLET BY MOUTH FOUR TIMES DAILY active Not Available Not Available No t Available Stimulant Laxative Plus 8.6 mg-50 mg tablet TAKE 2 TABLETS BY MOUTH TWICE DAILY active Not Available Not Available No t Available Vitals Date Recorded Body weight Provider Name an d Address Organization Details Last Updated DateTime 07/07/2023 29977.3 g Berkley Elizabeth RN [facility] 07/07/2023 12:23:04 Date Recorded Body mass index (BMI) Body height Provider Name and Address Organization Details Last Updated DateTime 07/07/2023 28.5 kg/m2 165.1 cm Berkley Elizabeth RN [facility] [employer] [facility] 07/07/2023 12:23:17 Social History Question Answer Notes LastModified by Organizat ion Details LastModified Time Tobacco Smoking Status Current Every Day Smoker Berkley Elizabeth RN [facility], [facility] [employer] 07/07/2023 12:26:03 What Is Your Level Of Alcohol Consumption? None [email or web address] Information not available 07/07/2023 Sex: Unknown Functional Status None recorded. Mental Status None recorded. Family History Relationship Description Onset Age of this Age Resolved Age Notes LastModified by Organization Details LastModified Time Father No current problems or disability [email or web address] Not available 07/07 12:25:55 Mother No current problems or disability [email or web address] Not available 07/07 12:25:55 Medical History Condition Response MRSA N BACK INJECTIONS N ALLERGIES/HAYFEVER N LUNG DISEASE/DISORDER N INSOMNIA N HISTORY OF DRUG ABUSE N ESRD N RADIATION / CHEMOTHERAPY N COPD N HIGH CHOLESTEROL / HYPERLIPIDEMIA N HYPERTHYROIDISM N PVD N BLOOD DISEASES N EAR OR HEARING PROBLEMS N HYPOTHYROIDISM N SHINGLES N DEPRESSION (INCLUDING POST ) N BACK / NECK PROBLEMS N HAVE YOU BEEN HOSPITALIZED OR SEEN IN [facility] ER IN THE PAST YEAR ? N FAILED BACK SYNDROME N STROKE/TIA N POLYCYSTIC OVARIES N OBESITY N HISTORY WITH COMPLICATIONS WITH ANESTHES [place] ? N ANEURYSM N Do you have Advance directive? N USE OF BLOOD THINNERS N NO SIGNIFICANT PAST MEDICAL HISTORY N DIABETES, TYPE N VON WILLIBRAND'S DISEASE N PARATHYROID DISEASE N ENT N SEASONAL ALLERGIES N HEARTBURN / REFLUX N POST LAMINECTOMY SYNDROME N HEPATITIS / LIVER DISEASE N SLEEP DISORDER N ARTERIAL INSUFFICIENCY N SEIZURES/EPILEPSY N HEADACHES/MIGRAINES N CHF N PACEMAKER N DIZZINESS N HEART DISEASE/HEART PROBLEMS N AIDS/HIV N NEUROPSYCHOLOGICAL N HYPERTENSION N CANCER: SPECIFY N TOURETTE'S N BLOOD TRANSFUSION N ANESTHESIA COMPLICATIONS N ANEMIA/BLOOD DISORDER N CHRONIC EAR INFECTIONS N ATRIAL FIBRILLATION N AUTOIMMUNE DISEASE N TUBERCULOSIS N Past Encounters Encounter ID Performer Location Encounter Start Date Encounter Closed Date Diagnosis/Indication Diagnosis SNOMED-CT Code Diagnosis ICD10 Code Diagnosis Note [id number] Alf Oropeza MD [facility] [address] [place] [address] 07/07/2023 12:17:13 07/07/2023 12:43:17 Chronic hoarseness 6755839458 105 R49.0 Vasomotor rhinitis 57734 03 J30.0 Health Concerns Section Related Observation LastModified by Organization Detai ls LastModified Time None Recorded Concern Status LastModified by Organization Details LastModified Time None Recorded Advance Directives Directive None Recorded Payers Encounter Date Sequence Insurance Name Policy Number Policy [place] Covered Member ID [place] Member ID Guarantor Name 07/07/2023 1 [facility] (MEDICARE REPLACEMENT/A DVANTAGE - PPO) [id number] Sam Rosenthal [id number] Samernie McleanRosenthal Notes Date Note Type Note Provider Name and Address Organization Details Recorded Time 07/07/2023 text/html this patient had a posterior spinal fusion in July of 2022 and was told during a intubation and had a nodule of his vocal cord. He reports that he is somewhat hoarse. He is a smoker cigarettes and marijuana. In addition he reports nasal drainage primarily on the left side. Alf Oropeza MD [address] [place] [address], [address] [address], [place], [address], [facility] 07/07/2023 12:41:00
== END 2024-11-24 10:35 | disposition home or self-care (01) ==
PROVIDERS: Admitting Provider Surgery; PCP Family Medicine Adult Medicine; Visit Provider Surgery
DX: K61.1 Rectal abscess (principal); K21.9 Gastro-esophageal reflux disease without esophagitis; F17.210 Nicotine dependence, cigarettes, uncomplicated; G47.30 Sleep apnea, unspecified; F31.9 Bipolar disorder, unspecified; E78.5 Hyperlipidemia, unspecified; Z79.899 Other long term (current) drug therapy
CPT/HCPCS: 36415; 71260; 74177; 80053; 85027; 96365; 96366; A9270; G0378; G0379; J1836; J2004; J2543; J7120; Q9967